=== PATIENT | female | born 1940 | race Caucasian/White ===

== ENCOUNTER 2018-04-08 07:29 | Day surgery (SDC) | payer MEDICARE, OTHER, SELFPAY ==
--- NOTE | 2018-04-08 | DI.MG.S_ITS ---
SPECIMEN: 04/08/2018 CLINICAL: Breast specimen right. Correlation is made to exams dated: 04/08/2018 mammogram, 02/24/2018 mammogram, and 02/05/2018 mammogram - [facility]. IMPRESSION: SPECIMEN Targeted mass is within the specimen radiograph. This exam was interpreted at Station ID: [id number]. Elliott Dwyer M.D. cj/:04/08/2018 17:00:50 copy to: CECILE VACA
--- NOTE | 2018-04-08 | PATH_ITS ---
[facility] Accession Number: [id number] . 01 Material submitted: . PART A: RIGHT BREAST TISSUE PART B: RIGHT BREAST LATERAL WALL . 02 Diagnosis: A. Right Breast Tissue, Excision: Complex sclerosing lesion, 9 mm, free of all margins by at least 5 mm; pending consultation at the [facility]. Incidental intraductal papilloma, within 3 mm of inferior margin. . B. Right Breast, Lateral Wall, Excision: Breast parenchyma with no diagnostic abnormality. Negative for in situ or invasive carcinoma. BFI/04/14/2018 . 02 Comment: The dominant lesion consists of irregualr glands and nests of epithelioid cells within a sclerotic stroma spanning 9 mm on glass slides. Histochemical stains for myoepithelial cells show at least partial retention of the myoepithelial cell layer, arguing against an invasive carcinoma. This case will be forwarded to the [facility] for their expert opinion, and their findings issued in an addendum. . 02 Electronically signed: . Wagner Cervantes MD, PhD, Pathologist NPI- [id number] . 01 Gross description: . (A) Received in formalin, labeled RT breast, long superior, short medial, is a piece of breast tissue (4.3 cm AP, 1.8 cm SI, 5.7 cm ML) with overlying skin (1.5 cm SI, 3.8 cm ML) oriented with two black sutures (long-superior, short-medial). A localization wire enters the central inferior aspect and ends in the center of the specimen. The specimen is serially sectioned ML into 20 slices with the medial and lateral resection margins as slices #1 and #20, respectively. The localization wire ends between slices #8 and #9. No biopsy marker is identified. The breast tissue is fatty and contains scattered whitaker-white firm nodules and irregularly firm areas (0.2 x 0.2 x 0.1 cm-0.8 x 0.4 x 0.4 cm) within slices #4-19 located 0.4 cm from the skin surface, 0.5 cm from the posterior, 0.5 cm from the superior, 0.1 cm from the inferior, 0.8 cm from the medial, and 0.3 cm from the lateral resection margins. Ink code: yellow- posterior; black-superior; orange-inferior; green-medial; blue-lateral. Section code: (A1) medial resection margin, perpendicularly sectioned; (A2) slice #2; (A3) slice #3; (A4) slice #4; (A5) slice #5; (A6-A7) slice #6, bisected and submitted AP; (A8-A9) slice #7, bisected and submitted AP; (A10-A11) slice #8, tissue involving the end of the localization wire, bisected and submitted AP; (A12-A13) slice #9, tissue involving the end of the localization wire, bisected and submitted AP; (A14-A15) slice #10, bisected and submitted AP; (A16-A17) slice #11, bisected and submitted AP; (A18-A19) slice #12, bisected and submitted AP; (A20-A21) slice #13, bisected and submitted AP; (A22-A23) slice #14, bisected and submitted AP; (A24-A15) slice #15, bisected and submitted AP; (A26-A27) slice #16, bisected and submitted AP; (A28-A29) slice #17, bisected and submitted AP; (A30) slice #18; (A31) slice #19; (A32) lateral resection margin, perpendicularly sectioned. Specimen entirely submitted. (B) Received in formalin, labeled lateral wall, right breast, is an unoriented piece of whitaker-white rubbery fibrous tissue (1.2 x 0.7 x 0.4 cm). The specimen is inked black, serially sectioned, and entirely submitted in cassette B1. . Note: Approximate total fixation time in formalin for both specimens-66 hours and 30 minutes calculated using a collection date of 04/08/2018 with no collection time given. ([id number]) . /[facility] . 02 Microscopic: . A. The main lesion consists of a focus of irregular glandular structures and nests of epithelioid cells with a squamoid appearance in a background of sclerotic stroma. To further evaluate the glands of interest, stains to evaluate for myoepithelial cells are performed. A p63 stain highlights the intact myoepithelial cell. A myosin stain highlights a predominately intact myoepithelial cell population. Control stains show appropriate reactivity. . * This test was developed and its performance characteristics determined by [employer]. It has not been cleared or approved by the U.S. Food and Drug Administration. The FDA has determined that such clearance or approval is not necessary. This test is used for clinical purposes. It should not be regarded as investigational or for research. . 02 Pathologist provided ICD-10: N63.10 . 02 CPT . 666050, 602428, Y81737, V20381 Performed at: [facility] [address] [facility], [place], [place] [id number] MD Byron Knapp MD Phone: [phone] Performed at: 02 [facility] [place] [address] [place], [place] [id number] MD Jimenez Garcia MD Phone: [phone]
--- NOTE | 2018-04-08 | DI.MG.S_ITS ---
UNILATERAL RIGHT DIGITAL DIAGNOSTIC MAMMOGRAM: 04/08/2018 CLINICAL: Right breast mass. Comparison is made to exams dated: 04/08/2018 localization, 02/24/2018 mammogram, and 02/05/2018 mammogram - [facility]. The tissue of the right breast is heterogeneously dense. This may lower the sensitivity of mammography. Wire localization using a 5 cm Kopans wire of the right breast subareolar mass which is at the thickened portion of the wire. IMPRESSION: Successful localization of a right breast subareolar mass. This exam was interpreted at Station ID: [id number]. NOTE: For mammograms, a report in lay terms will be sent to the patient. Approximately 15% of breast malignancies will not be visualized mammographically. In the management of a palpable breast mass, a negative mammogram must not discourage biopsy of a clinically suspicious lesion. Electronically Signed By: Elliott Dwyer M.D. cj/:04/08/2018 17:00:20 copy to: CECILE DEL VALLE BI-RADS Category n/a
--- NOTE | 2018-04-08 | DI.US.S_ITS ---
ULTRASOUND GUIDED WIRE LOCALIZATION RIGHT BREAST: 04/08/2018 CLINICAL: Pre-op wire localization. Correlation is made to exams dated: 02/24/2018 ultrasound, 02/05/2018 mammogram, 01/08/2017 mammogram, 07/15/2016 ultrasound, 07/15/2016 mammogram, and 12/27/2015 mammogram - [facility]. A wire localization using ultrasound guidance was performed for the mass located in the right breast central to the nipple in the retroareolar region. The skin was prepped in the usual manner. Local anesthetic was administered to the access site. A wire was inserted into the targeted area under ultrasound guidance. IMPRESSION: WIRE LOCALIZATION Wire localization for the mass in the right breast central to the nipple in the retroareolar region was successful with no apparent post procedure complications. This exam was interpreted at Station ID: [id number]. Elliott desai/francisco:04/09/2018 12:43:12 copy to: CECILE VACA
[2018-04-08] MEDS: LACTATED RINGERS 1,000 ML 42 ML IV (10:15)
[2018-04-08] MEDS: INSULIN REGULAR 100 UNIT/ML 3 ML VIAL 6 UNIT SUBCUT (10:16)
[2018-04-08 10:20] VITALS: BMI 42.1
[2018-04-08 10:27] VITALS: BP 156/75; PULSE 80; RESP 15; TEMP 36.1; O2SAT 92
[2018-04-08] MEDS: FAMOTIDINE 20 MG/50 ML PIGGYBACK 200 MG IV (11:21)
--- NOTE | 2018-04-08 11:29 | PM.PREOP ---
Pre-operative Note Interval Note Pre-op Check: History & Physical Reviewed by Physician and Exam Performed H&P completed within 30 days and has changed as indicated here:: The patient's sugar was 190. She was given 6 units of insulin subcu about a half an hour ago and the repeat shows a glucose of 171. Because she has downwardly trending and has not yet peaked on the effect of her initial insulin shot I will not repeat this at that this time we will proceed with the operation. We will check her intraoperatively if the operation goes beyond an hour
[2018-04-08] MEDS: CEFAZOLIN 2 GM/100 ML FROZ.PIGGY IV (11:40)
[2018-04-08] MEDS: BUPIVACAINE 0.5% (PF) 30 ML VIAL INJ (12:20)
[2018-04-08 12:45] VITALS: BP 156/73; PULSE 68; RESP 14; TEMP 36.8; O2SAT 94
[2018-04-08 12:50] VITALS: BP 159/74; PULSE 71; RESP 14; O2SAT 94
[2018-04-08 12:55] VITALS: BP 152/68; PULSE 69; RESP 14; O2SAT 93
--- NOTE | 2018-04-08 12:59 | PM.OP.1 ---
Operative Date/Time/Diagnoses - Date of procedure: 04/08/18 Time of procedure: 12:59 Pre-op diagnosis: Tender right breast mass behind and probably involving the nipple Post-op diagnosis: same Procedure & Clinicians Procedure: Needle localization with lumpectomy Same procedure as scheduled: Yes Indications: Breast mass. The patient declined a minimally invasive biopsy. She simply wanted the mass removed. Surgeon: Alberto Ruffin Click Yes if Unassisted: Yes Anesthesia Type: General Operative Notes Findings: Mass within the specimen based on specimen mammogram Closure Type: primary Specimen(s): other (Mass) Implants & Drains: None Estimated Blood Loss (mL): 15 Blood products transfused: none Procedure in detail: Patient was placed supine on the operating table and underwent general LMA anesthesia. She was prepped and draped in the usual fashion. Great care had been taken not to move the wire used for localization. The nipple was retracted and appeared to be involved with this lesion. Therefore I made elliptical incision across the Michael to include the nipple with the specimen. Using principally cautery dissection the mass was dissected from surrounding structures removed. It was submitted for a mammographic evaluation and contained the needle and the mass. There was 1 small area of the lateral wall that was a little different than the remainder and I biopsied this and placed in a separate container. It may just be breast tissue that was little more prominent than elsewhere. I irrigated out the wound and obtained meticulous hemostasis. Local anesthetic was infiltrated and the space closed with interrupted 3 0 Polysorb. The skin was closed running 4-0 Polysorb subcuticular stitch and Steri-Strips. Dressing was applied the patient was awakened extubated taken to recovery room good condition. Complications: none Condition: stable Disposition: PACU Plan for aftercare: Follow-up in office about 7-10 days
[2018-04-08 13:11] VITALS: BP 157/63; PULSE 73; RESP 16; O2SAT 94
--- NOTE | 2018-04-08 13:39 | SUR.PHASEII ---
assumed care from og gutiérrez. pt just medicated for pain, dressing c/d/i. ice pack in use, at bedside- d/c instructions discussed with both by og, both voiced an understanding of what was discussed.
[2018-04-08 13:43] VITALS: BP 139/64; PULSE 68; RESP 16; TEMP 36.1; O2SAT 95
--- NOTE | 2018-04-08 13:51 | SUR.PHASEII ---
pt ready to go, assisted to dress by .
== END 2018-04-08 13:50 | disposition home or self-care (01) ==
PROVIDERS: PCP Family Medicine; Visit Provider Specialist
PROC: (CPT 19301; principal; 2018-04-08 11:15)
DX: N63.10 Unspecified lump in the right breast, unspecified quadrant (principal); C50.912 Malignant neoplasm of unspecified site of left female breast; E66.9 Obesity, unspecified; G47.33 Obstructive sleep apnea (adult) (pediatric); E11.9 Type 2 diabetes mellitus without complications; Z79.4 Long term (current) use of insulin; K21.9 Gastro-esophageal reflux disease without esophagitis; I10 Essential (primary) hypertension; D64.9 Anemia, unspecified
CPT/HCPCS: 19301; 19285; 76098; 77065; J0690; J2405; J2704; J3010

== ENCOUNTER → 2018-08-27 09:42 | Outpatient (CLI) | payer MEDICARE, OTHER, SELFPAY | PROVIDERS: PCP Family Medicine; Visit Provider Family Medicine | DX: Z78.0 Asymptomatic menopausal state (principal); E11.9 Type 2 diabetes mellitus without complications; Z85.3 Personal history of malignant neoplasm of breast; Z87.891 Personal history of nicotine dependence | CPT/HCPCS: 77080 ==

== ENCOUNTER → 2019-01-17 12:19 | Outpatient (CLI) | payer MEDICARE, OTHER, SELFPAY ==
--- NOTE | 2019-01-17 | DI.RAD.S_ITS ---
PROCEDURE: XR LUMBAR SPINE 2-3V INDICATIONS: BACK PAIN TECHNIQUE: 3 views of the lumbar spine were acquired. COMPARISON: [facility], CT, ABDOMEN WITH CONTRAST, 03/20/2015, 9:19. FINDINGS: Bones: 5 [id number] vertebrae are present. Mild to moderate levoscoliosis. There is grade 1 anterolisthesis of L5 on S1. No vertebral body compression fractures. No suspicious bony lesions. There is discectomy and posterior spinal fusion at L4-L5. Degenerative disc disease is present, severe at T12-L1, moderate at L2-L3 and mild at other levels. Soft tissues: Overlying bowel gas pattern is normal. No suspicious soft tissue calcifications. IMPRESSION: 1. Mild to moderate levoscoliosis. 2. Severe degenerative disc disease at T12-L1, and moderate degenerative disc disease at L2-L3. Dictated by: Damon Dalton M.D. on 01/17/2019 at 17:12 Approved by: Damon Dalton M.D. on 01/17/2019 at 17:16
== END ==
PROVIDERS: PCP Family Medicine; Visit Provider Family Medicine
DX: M54.9 Dorsalgia, unspecified (principal); M51.35 Other intervertebral disc degeneration, thoracolumbar region; M51.36 Other intervertebral disc degeneration, lumbar region; M41.86 Other forms of scoliosis, lumbar region
CPT/HCPCS: 72100

== ENCOUNTER → 2019-02-17 12:50 | Outpatient (CLI) | payer MEDICARE, OTHER, SELFPAY ==
--- NOTE | 2019-02-17 | DI.MG.S_ITS ---
BILATERAL DIGITAL SCREENING MAMMOGRAM 3D/2D WITH CAD POST LUMPECTOMY: 02/17/2019 CLINICAL: Routine screening. Bilateral breast cancer. Comparison is made to exams dated: 02/24/2018 mammogram, 02/05/2018 mammogram, 01/08/2017 mammogram, 12/27/2015 mammogram, 01/23/2015 mammogram, and 11/11/2013 mammogram - [facility]. The tissue of both breasts is heterogeneously dense. This may lower the sensitivity of mammography. Current study was also evaluated with a Computer Aided Detection (CAD) system. Linear scar markers overlie the breasts bilaterally. There are benign post operative findings in both breasts. There also are benign vascular calcifications in both breasts. There is a mole marker on the left breast. No significant masses, calcifications, or other findings are seen in either breast. There has been no significant interval change. IMPRESSION: There is no mammographic evidence of malignancy. A 1 year screening mammogram is recommended. This exam was interpreted at Station ID: [id number]. NOTE: For mammograms, a report in lay terms will be sent to the patient. Approximately 15% of breast malignancies will not be visualized mammographically. In the management of a palpable breast mass, a negative mammogram must not discourage biopsy of a clinically suspicious lesion. Electronically Signed By: Samy Cruz M.D. ecl/:02/17/2019 20:33:46 copy to: RANDY PRESTON copy to: Alberto Ruffin copy to: Truman Batista letter sent: Normal Exam ACR BI-RADS Category 2: Benign Finding(s) 3342F
--- NOTE | 2019-02-17 14:39 | DI.MRI.S_ITS ---
PROCEDURE: MR LUMBAR SPINE WO CON INDICATIONS: pain lower back TECHNIQUE: Noncontrast sagittal T1 spin echo and T2 fast echo, sagittal STIR, axial T1 and T2 fast spin echo through the lumbar spine. In cases with scoliosis, additional coronal T2 fast spin echo may be performed. COMPARISON: [facility], CT, ABDOMEN WITH CONTRAST, 03/20/2015, 9:19. [facility], CT, CHEST/ABDOMEN WITH CONTRAST, 08/29/2014, 9:07. [facility], CR, XR LUMBAR SPINE 2-3V, 01/17/2019, 12:30. FINDINGS: Image quality: This examination is limited by involuntary motion artifact. Alignment and Curvature: There is accentuated lumbar lordosis is seen. There is mild grade 1 retrolisthesis at T12-L1. Minimal retrolisthesis is seen at L1-L2, L2-L3, and a flow. Mild grade 1 anterolisthesis is seen at L5-S1. No definite associated pars ducts are seen. Bone Marrow: Marrow is of normal overall signal. No acute vertebral body compression fractures. Spinal Cord: Conus medullaris terminates at the L1 level. Visualized cord demonstrates normal signal and size. Paraspinous Soft Tissues: No paravertebral masses. There is a left renal cyst seen inferiorly, which measures at least 6.5 cm. T12-L1: Moderate to severe loss of disc height and disc signal are seen. Endplate irregularity is seen at this level. Bridging anterior osteophytes are seen. Moderate disc bulge is seen, which is eccentric to the left. There is moderate bilateral neural foraminal narrowing seen, left worse than right. No significant central canal narrowing is seen. L1-L2: The disc height is well-preserved. Loss of disc signal is seen at this level. Mild generalized disc bulge is seen. Bmzh-ok-wstciwuz facet hypertrophy is seen. No significant neural foraminal or central canal narrowing can be seen. L2-L3: The disc height is well-preserved. Loss of disc signal is seen at this level. Moderate generalized disc bulge is seen. Moderate facet hypertrophy is seen, left worse than right. There is moderate hypertrophy of the ligamentum flavum. Moderate bilateral neural foraminal narrowing is seen at this level. At least moderate central canal narrowing is seen, as on series 5 image 18. L3-L4: The disc height is well-preserved. Loss of disc signal is seen at this level. Moderate to prominent disc bulge is seen. At least moderate facet hypertrophy is seen. There is associated moderate hypertrophy of the ligamentum flavum. Moderate to severe bilateral neural foraminal narrowing is seen, right worse than left. There is a degree of compression seen upon the exiting nerve roots. Moderate to severe central canal narrowing is seen at this level. L4-L5: Postoperative changes are seen, with bilateral pedicle screws. Vertical fixation rods are seen. There is a disc spacer seen. There is associated susceptibility artifact. There has been removal of portions of the posterior elements. Mild generalized disc bulge is seen. Moderate facet joint hypertrophy is seen. There is moderate right-sided and mild left-sided neural foraminal narrowing seen. The central canal is widely patent. L5-S1: Grade 1 anterolisthesis is seen at this level. The disc height is well-preserved. Loss of disc signal is seen at this level. Moderate generalized disc bulge is seen. At least moderate facet hypertrophy is seen. There is moderate right-sided and mild left-sided neural foraminal narrowing seen. Moderate central canal narrowing is seen. IMPRESSION: At L3-L4, there is moderate to severe central canal narrowing and moderate to severe bilateral neural foraminal narrowing. There is associated nerve root impingement seen upon the exiting L3 nerve roots. Unremarkable postoperative change at L4-L5. Grade 1 anterolisthesis is seen at L5-S1. Dictated by: Tan Junior M.D. on 02/17/2019 at 14:52 Approved by: Tan Junior M.D. on 02/17/2019 at 14:59
== END ==
PROVIDERS: PCP Family Medicine; Visit Provider Physical Medicine & Rehabilitation
DX: Z12.31 Encounter for screening mammogram for malignant neoplasm of breast (principal); Z85.3 Personal history of malignant neoplasm of breast; M54.5 Low back pain; M43.17 Spondylolisthesis, lumbosacral region; M48.061 Spinal stenosis, lumbar region without neurogenic claudication; M48.07 Spinal stenosis, lumbosacral region; Z98.1 Arthrodesis status
CPT/HCPCS: 72148; 77063; 77067

== ENCOUNTER → 2019-03-25 11:14 | Outpatient (CLI) | payer MEDICARE, OTHER, SELFPAY ==
--- NOTE | 2019-03-25 11:16 | DI.RAD.S_ITS ---
PROCEDURE: FL BARIUM SWALLOW INDICATIONS: Dysphagia upper esophagus. Worsening reflux. Hoarseness COMPARISON: None. FINDINGS: Function: There is normal esophageal peristalsis. There was minimal spontaneous and elicited gastroesophageal reflux. Morphology: Air-contrast images demonstrate normal mucosal morphology. Single contrast views show no esophageal strictures, extrinsic mass effects, or diverticula. Limited images of the stomach demonstrate normal appearance. IMPRESSION: The degree of reflux visualized is mild, but the symptomatology reported by the patient indicates likelihood of significant reflux occurring at other times of the day/evening. Advanced detection methodology for severity of reflux likely is warranted in this patient. Dictated by: Avila Roman M.D. on 03/25/2019 at 12:34 Approved by: Avila Roman M.D. on 03/25/2019 at 12:35
== END ==
PROVIDERS: PCP Family Medicine; Visit Provider Specialist
DX: R13.10 Dysphagia, unspecified (principal); K21.9 Gastro-esophageal reflux disease without esophagitis; R49.0 Dysphonia
CPT/HCPCS: 74220

== ENCOUNTER 2019-03-29 13:02 | Outpatient (CLI) | payer MEDICARE, OTHER, SELFPAY ==
--- NOTE | 2019-03-29 13:07 | DI.RAD.S_ITS ---
PROCEDURE: PAIN L INTERLAMINAR/CAUDAL INJ INDICATIONS: INTERVERTEBRAL DISC DEGENERATION FINDINGS: Fluoroscopic spot filming was performed to verify placement of spinal needles at the L3-L4, as labeled on the films. Appropriate location(s) of the needle tip(s) was confirmed by injection of iodinated contrast. IMPRESSION: Fluoroscopy for pain management. Dictated by: Damon Dalton M.D. on 03/29/2019 at 15:12 Approved by: Damon Dalton M.D. on 03/29/2019 at 15:16
[2019-03-29 13:15] VITALS: BP 126/67; PULSE 114; RESP 16; TEMP 36.3; O2SAT 96
[2019-03-29] MEDS: MIDAZOLAM 5 MG/5 ML VIAL IV (13:54)
--- NOTE | 2019-03-29 14:15 | P.PCN_ITS ---
Procedures Date/Time Date of procedure: 03/29/19 Time of procedure: 14:14 General Procedure description: POST OP DIAGNOSIS 1. HNP WITH RADICULAR FEATURES, 2. MULTILEVEL CENTRAL STENOSIS, PROCEDURES 1. FLUORSCOPICALLY GUIDED CONTRAST CONTROLLED INTERLAMINAR EPIDURAL STEROID INJECTION - L3/4 PHYSICIAN: Layton Castro, DO INDICATIONS Wendy is referred by Dr. Batista for treatment of Bilateral Foraminal Stenosis L>R LE symptoms. FINDINGS Multilevel Central Spinal Stenosis with Nerve Root Compression DESCRIPTION OF PROCEDURE Fluoroscopically guided, contrast-controlled L3/4 translaminar epidural steroid injection. Following denial of allergy and review of potential side effects and complications, including, but not necessarily limited to, infection, allergic reaction, local tissue breakdown, temporary as well as permanent nerve injury, paralysis, stroke and possible , the patient indicated that the patient understood and agreed to proceed. An informed consent document was signed by the patient, witnessed by a nurse, and placed in the patient's chart. Additionally, other treatment options including modalities, medications, and physical therapy were reviewed with the patient. After review of previous anaesthesic history and IV conscious sedation the patient was deemed safe to proceed with todays procedure with IV conscious sedation as ASA class II designation. Safety time-out was performed to confirm patient ID, procedure to be performed and site of procedure. IV sedation was accomplished with a combination of 3mg of Versed was administered by the RN after DO order, titrated to patient comfort during the course of the procedure while the patient remained responsive to all verbal commands. In the prone position, following sterile prep and drape of the lumbar region, the L3/4 translaminar space was identified fluoroscopically. The skin was anesthetized via a 25-gauge, 1.5-inch needle with 1% lidocaine solution. At this point, a 22-gauge short bevel spinal needle was atraumatically introduced and advanced under fluoroscopic guidance into the region of the L3/4 translaminar space. Depth was confirmed on lateral view. Radiological data, including multiple fluoroscopic views of the lumbar spine, reveal a spinal needle at the L3/4 translaminar space. Lateral views then show placement of the needle in the epidural space. Subsequent views show contrast material flowing superiorly and inferiorly in the epidural space. No vascular or intrathecal uptake is observed. At this point, using loss of resistance technique with saline and air, the epidural space was entered. This was confirmed following negative aspiration with injection of approximately 1.5 cc of Isovue 200, showing excellent epidural flow without vascular or intrathecal uptake. At this point, 1 cc of 1% lidocaine solution combined with 3cc or 20mg of dexamethasone and 6mg of betamethasone was injected without incident. The patient tolerated the procedure well without signs or symptoms of complications prior to transfer to the recovery area continued monitoring without incident. The patient was then transferred to the recovery area where they were observed for an appropriate period of time after the injection. The patient reported a VAS score of 6 prior to the procedure and a post- procedure VAS of 0. Total Fluoroscopy Time: 11.8 seconds Total Conscious Sedation Time: 24min POST OP INSTRUCTIONS The patient was provided a Pain Log to continue to record their response to the target-specific procedure prior to follow-up visit with their referring physician. Additionally, specific post-injection care instructions and a contact number to our office were provided if concerns arise regarding possible complications associated with the procedure are suspected. Layton Castro DO Complications: none
[2019-03-29 14:21] VITALS: BP 140/57; PULSE 96; RESP 18; O2SAT 94
[2019-03-29] MEDS: BUPIVACAINE 0.5% (PF) VIAL 30 ML INJ (14:21)
[2019-03-29] MEDS: IOPAMIDOL 15 ML VIAL 3 ML INJ (14:22)
[2019-03-29] MEDS: BETAMETHASONE 30 MG/5 ML MDV 12 MG INJ (14:22)
--- NOTE | 2019-03-29 14:22 | PC.NURSE ---
ACCEPTED CARE OF PT IN POST PROC AREA IN STABLE CONDITION
[2019-03-29 14:26] VITALS: BP 118/53; PULSE 92; RESP 18; O2SAT 95
== END 2019-03-29 14:39 | disposition home or self-care (01) ==
LOC: RAD 13:06
PROVIDERS: PCP Family Medicine; Visit Provider Physical Medicine & Rehabilitation
DX: M51.16 Intervertebral disc disorders with radiculopathy, lumbar region (principal); M48.062 Spinal stenosis, lumbar region with neurogenic claudication; Z98.1 Arthrodesis status
CPT/HCPCS: 62323; 99152; J0702; J2250; J3010

== ENCOUNTER 2019-04-19 06:41 | Day surgery (SDC) | payer MEDICARE, OTHER, SELFPAY ==
[2019-04-19] VITALS (7 sets, daily range): BP systolic 119–157; BP diastolic 48–82; PULSE 73–86; RESP 14–73; TEMP 36.4–36.5; O2SAT 93–97; BMI 45.4
--- NOTE | 2019-04-19 | PATH_ITS ---
[facility] Accession Number: [id number] . 01 Material submitted: . gastrointestinal site - GASTRIC ANTRUM BIOPSY . 02 Diagnosis: Stomach, Antrum, Biopsy: Gastric antral mucosa with features of reactive gastropathy. No evidence of Helicobacter organisms on H/E stain. Negative for intestinal metaplasia, dysplasia or malignancy. [facility]/04/20/2019 . 02 Electronically signed: . Wagner Cervantes MD, PhD, Pathologist NPI- [id number] . 01 Gross description: . GASTRIC ANTRUM BIOPSY: Received in formalin are 3 fragment(s) of lin, soft tissue measuring 0.1 x 0.1 x 0.1 cm to 0.3 x 0.2 x 0.2 cm which is entirely submitted and submitted entirely in 1 cassette(s) /[facility] /[facility] . 02 Pathologist provided ICD-10: R10.13, K21.9 . 02 CPT . 620729 Performed at: 01 [facility] [address], [place], [place] [id number] MD Byron Knapp MD Phone: [phone] Performed at: 02 [facility] [address] [place], [place] [id number] MD Georgina Villalpando MD Phone: [phone]
[2019-04-19] MEDS: SODIUM CHLORIDE 0.9% 1,000 ML 150 ML IV (07:58)
--- NOTE | 2019-04-19 07:58 | PM.PREOP ---
Pre-operative Note Interval Note History & Physical reviewed/Exam performed by Physician: Yes Changes to H&P: Yes H&P completed within 30 days and has changed as indicated here:: The patient had a barium swallow that was normal except for some very slight reflux ASA Class (for procedural sedation): III
[2019-04-19] MEDS: TETRACAINE/BENZOCAINE/BUTAMBEN (CETACAINE) BOTTLE 1 SPRAY TOP (08:11)
[2019-04-19] MEDS: LIDOCAINE 4% SOLN 50 ML 20 ML TOP (08:12)
[2019-04-19] MEDS: fentaNYL 250 MCG/5 ML INJ IV (08:18)
[2019-04-19] MEDS: MIDAZOLAM 5 MG/5 ML VIAL IV (08:19)
--- NOTE | 2019-04-19 08:27 | PM.OP.ENDO ---
Operative Date/Time/Diagnoses Date of procedure: 04/19/19 Time of procedure: 08:27 Pre-op diagnosis: Persistent cough concern over reflux as the source of that cough Post-op diagnosis: other (No evidence of significant reflux. Antritis. Biopsies taken of the antrum.) Procedure & Clinicians Study performed: EGD with cold biopsy Same procedure as scheduled: Yes Indications: Patient with persistent cough thought possibly secondary to silent reflux Surgeon: Alberto Ruffin Procedure Notes SCOAP/Timeout: Performed Procedure in detail: The patient had topical anesthetic applied to oropharynx. She was placed in left lateral decubitus position and underwent IV sedation directed by the surgeon consisting of fentanyl and Versed. A bite block was inserted and the scope was advanced through. There was no evidence of any inflammation around the epiglottis or area above the vocal cords. The cords were normal in appearance. There was no inflammation entering the esophagus. The esophagus was unremarkable. GE junction was noted at 40 cm from the incisors. There was no evidence of Yu's esophagus and there was a sharp demarcation between gastric and esophageal mucosa as 1 would normally expect. The stomach insufflated well. There were no lesions seen in the body or at the incisura. The antrum was noted to be significantly inflamed but no ulcers were seen. The pyloric channel was narrowed. The duodenum was unremarkable to the 4th part. The scope was brought back into the stomach and retroflexed. The proximal stomach normal in appearance. There was no evidence of a hiatal hernia.. The scope was straightened. Biopsies were taken of the gastric antrum. The scope was then brought out through the esophagus again. No lesions were seen. There was no inflammation at the GE junction. The scope was removed and the patient tolerated the procedure well. Scope withdrawal time: Not applicable Sedation minutes: 10 Findings: other findings (Antritis) Specimen(s): other (Gastric antrum) Complications: none Recommendations: Continue medication(s) (Omeprazole) Plan for aftercare: Will follow up with biopsy results. Disposition: PACU
--- NOTE | 2019-04-19 09:17 | SUR.PHASEII ---
PACU transfer note to [facility]: VSS, O2 sat WNL RA. No complaints of pain. Tolerating PO without any choking or nausea. Stable for transfer to [facility] via stretcher to [place] #3. at bedside.
== END 2019-04-19 09:29 | disposition home or self-care (01) ==
PROVIDERS: PCP Family Medicine; Visit Provider Specialist
PROC: 0DJ08ZZ Inspection of Upper Intestinal Tract, Via Natural or Artificial Opening Endoscopic (ICD-10-PCS; CPT 43235; principal; 2019-04-19 07:45)
DX: K29.60 Other gastritis without bleeding (principal); E11.9 Type 2 diabetes mellitus without complications; Z79.4 Long term (current) use of insulin; K21.9 Gastro-esophageal reflux disease without esophagitis
CPT/HCPCS: 43239; 88305; 99152; J2250; J3010

== ENCOUNTER → 2020-05-01 10:03 | Outpatient (CLI) | payer MEDICARE, OTHER, SELFPAY ==
--- NOTE | 2020-05-01 | DI.MG.S_ITS ---
BILATERAL DIGITAL SCREENING MAMMOGRAM 3D/2D WITH CAD POST LUMPECTOMY: 05/01/2020 CLINICAL: Routine screening. Personal history of bilateral breast cancer. Comparison is made to exams dated: 02/17/2019 mammogram, 02/05/2018 mammogram, and 01/08/2017 mammogram - [facility]. The tissue of both breasts is heterogeneously dense. This may lower the sensitivity of mammography. Current study was also evaluated with a Computer Aided Detection (CAD) system. There are benign vascular calcifications in both breasts. There also are benign post operative findings in both breasts. There is a mole marker on the left breast. No significant masses, calcifications, or other findings are seen in either breast. There has been no significant interval change. IMPRESSION: There is no mammographic evidence of malignancy. A 1 year screening mammogram is recommended. This exam was interpreted at Station ID: [id number]. NOTE: For mammograms, a report in lay terms will be sent to the patient. Approximately 15% of breast malignancies will not be visualized mammographically. In the management of a palpable breast mass, a negative mammogram must not discourage biopsy of a clinically suspicious lesion. Electronically Signed By: Larisas low/francisco:05/01/2020 11:00:37 copy to: DIEGO WALTER letter sent: Normal Exam ACR BI-RADS Category 2: Benign Finding(s) [id number]
== END ==
PROVIDERS: PCP Family Medicine; Referring Provider Family Medicine; Visit Provider Family Medicine
DX: Z12.31 Encounter for screening mammogram for malignant neoplasm of breast (principal); Z85.3 Personal history of malignant neoplasm of breast
CPT/HCPCS: 77063; 77067

== ENCOUNTER → 2020-06-29 08:59 | Outpatient (CLI) | payer MEDICARE, OTHER, SELFPAY ==
--- NOTE | 2020-06-29 09:01 | DI.RAD.S_ITS ---
PROCEDURE: XR LUMBAR SPINE MIN 4V INDICATIONS: LBP TECHNIQUE: 5 views of the lumbar spine were acquired. COMPARISON: [facility], RG, XR L-SPINE 2-3V, 02/03/2019, 13:16. [facility], CT, ABDOMEN WITH CONTRAST, 03/20/2015, 9:19 [facility], CR, XR LUMBAR SPINE 2-3V, 01/17/2019, 12:30. FINDINGS: Bones: 5 nonrib-bearing vertebrae are present. Mild S-shaped rotatory thoracolumbar curvature. Bilateral L4-L5 posterior lateral noemí and pedicle screw fixation with no evidence of hardware failure or loosening. Chronic grade 1 anterolisthesis of L5 on S1. Unchanged alignment. Multilevel degenerative disc disease and facet arthropathy. No suspicious bony lesions. Soft tissues: Overlying bowel gas pattern is normal. No suspicious soft tissue calcifications. Unchanged 2 cm splenic artery aneurysm, stable in size since 2014. . IMPRESSION: 1. L4-L5 fusion hardware intact. 2. Stable 2 cm splenic artery aneurysm. 3. Multilevel degenerative disc disease and facet arthropathy. Dictated by: Anderson Dominguez M.D. on 06/29/2020 at 9:25 Approved by: Anderson Dominguez M.D. on 06/29/2020 at 9:30
== END ==
PROVIDERS: PCP Family Medicine; Referring Provider Family Medicine; Visit Provider Physical Medicine & Rehabilitation
DX: M54.5 Low back pain (principal); M47.817 Spondylosis without myelopathy or radiculopathy, lumbosacral region; M43.17 Spondylolisthesis, lumbosacral region; I72.8 Aneurysm of other specified arteries; Z98.1 Arthrodesis status
CPT/HCPCS: 72110

== ENCOUNTER → 2020-07-06 11:07 | Outpatient (CLI) | payer MEDICARE, OTHER, SELFPAY ==
--- NOTE | 2020-07-06 11:08 | DI.RAD.S_ITS ---
PROCEDURE: XR SHOULDER LT MIN 2V INDICATIONS: Left shoulder pain TECHNIQUE: 3 views of the shoulder were acquired. COMPARISON: [facility], , SHOULDER MINIMUM 2 VIEW LEFT, 08/01/2011, 13:22. FINDINGS: Bones: No fractures or dislocations. No suspicious bony lesions. Visualized ribs appear intact. 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 Superior subluxation of the humeral head near the undersurface of the acromion. Soft tissues: No suspicious soft tissue calcifications. IMPRESSION: Degenerative changes but no trauma found. There is relative superior subluxation of the humeral head against the undersurface of the acromion to a degree that the finding may indicate full-thickness retracted supraspinatus tendon tear. Dictated by: Avila Roman M.D. on 07/06/2020 at 12:50 Approved by: Avila Roman M.D. on 07/06/2020 at 12:52
--- NOTE | 2020-07-06 11:08 | DI.RAD.S_ITS ---
PROCEDURE: XR CERVICAL SPINE 4V OR 5V INDICATIONS: Neck pain status post laminectomy TECHNIQUE: 5 views of the cervical spine acquired. COMPARISON: None. FINDINGS: Bones: No fracture identified to the C6 level. There is extensive severe multilevel cervical spondylosis and facet arthropathy. Lower cervical laminectomies although the exact level is radiographically unclear probably C5-C7. Suboptimal oblique imaging however there is probably at least moderate to severe right C3-C4 and C4-C5 foraminal stenosis. There is also probably at least mild to moderate C4-C5 and C5-C6 bony foraminal stenosis. This would be better evaluated with cervical MRI as clinically necessary. Soft tissues: No prevertebral soft tissue swelling. IMPRESSION: Severe multilevel cervical spondylosis. Facet arthropathy Dictated by: Carlito Silva M.D. on 07/06/2020 at 13:38 Approved by: Carlito Silva M.D. on 07/06/2020 at 14:32
== END ==
PROVIDERS: PCP Family Medicine; Referring Provider Family Medicine; Visit Provider Physical Medicine & Rehabilitation
DX: M54.2 Cervicalgia (principal); M47.812 Spondylosis without myelopathy or radiculopathy, cervical region; M25.512 Pain in left shoulder; M19.012 Primary osteoarthritis, left shoulder; M96.1 Postlaminectomy syndrome, not elsewhere classified; Z98.890 Other specified postprocedural states
CPT/HCPCS: 72050; 73030

== ENCOUNTER → 2020-07-09 10:24 | Outpatient (CLI) | payer MEDICARE, OTHER, SELFPAY ==
[2020-07-11 17:20] LABS: COVID19 Sendout Not Detected (Not Detect)
== END ==
PROVIDERS: PCP Family Medicine; Visit Provider Nurse Practitioner
DX: Z11.59 Encounter for screening for other viral diseases (principal)
CPT/HCPCS: 87635

== ENCOUNTER 2020-07-12 14:10 | Outpatient (CLI) | payer MEDICARE, OTHER, SELFPAY ==
[2020-07-12] VITALS (8 sets, daily range): BP systolic 105–159; BP diastolic 56–95; PULSE 78–84; RESP 15–22; TEMP 36.6; O2SAT 92–100
--- NOTE | 2020-07-12 14:12 | DI.RAD.S_ITS ---
PROCEDURE: PAIN L INTERLAMINAR/CAUDAL INJ INDICATIONS: SPONDYLOSIS COMPARISON: [facility], XA, PAIN L INTERLAMINAR/CAUDAL INJ, 03/29/2019, 14:04. FINDINGS: Fluoroscopic spot filming was performed to verify placement of spinal needles at the L3-L4 level(s), as labeled on the films. Appropriate location(s) of the needle tip(s) was confirmed by injection of iodinated contrast. Dictated by: Carlito Silva M.D. on 07/12/2020 at 16:03 Approved by: Carlito Silva M.D. on 07/12/2020 at 16:03
[2020-07-12] MEDS: MIDAZOLAM 5 MG/5 ML VIAL IV (15:19)
[2020-07-12] MEDS: BETAMETHASONE 30 MG/5 ML MDV 6 MG INJ (15:22)
[2020-07-12] MEDS: DEXAMETHASONE 10 MG/ML VIAL 20 MG INJ (15:22)
[2020-07-12] MEDS: BUPIVACAINE 0.25% (PF) VIAL 2 ML INJ (15:22)
[2020-07-12] MEDS: IOPAMIDOL 15 ML VIAL 3 ML INJ (15:22)
--- NOTE | 2020-07-12 15:33 | P.PCN_ITS ---
Date/Time/Diagnoses Date of procedure: 07/12/20 Time of procedure: 15:33 Pre-procedure diagnosis: 1. HNP WITH RADICULAR FEATURES, 2. MULTILEVEL CENTRAL STENOSIS, Post-procedure diagnosis: same Procedure Notes Procedure: 1. FLUOROSCOPICALLY GUIDED CONTRAST CONTROLLED INTERLAMINAR EPIDURAL STEROID INJECTION - L3/4 Indications: Wendy is referred by Dr Batista for treatment of Bilateral Foraminal Stenosis L>R LE symptoms. Physician: Layton Castro Total Fluoroscopy time (seconds): 9 Total sedation minutes: 10 Complications: none Procedure in detail & Post-procedure care: FINDINGS Multilevel Central Spinal Stenosis with Nerve Root Compression DESCRIPTION OF PROCEDURE Fluoroscopically guided, contrast-controlled L3/4 translaminar epidural steroid injection. Following review of allergy and review of potential side effects and complications, including, but not necessarily limited to, infection, allergic reaction, local tissue breakdown, temporary as well as permanent nerve injury, paralysis, stroke and possible , the patient indicated that the patient understood and agreed to proceed. An informed consent document was signed by the patient, witnessed by a nurse, and placed in the patient's chart. Additionally, other treatment options including modalities, medications, and physical therapy were reviewed with the patient. After review of previous anaesthesic history and IV conscious sedation the patient was deemed safe to proceed with today?s procedure with IV conscious sedation as ASA class II designation. Safety time-out was performed to confirm patient ID, procedure to be performed and site of procedure. IV sedation was accomplished with a combination of 2mg of Versed was administered by the RN after DO order, titrated to patient comfort during the course of the procedure while the patient remained responsive to all verbal commands. In the prone position, following sterile prep and drape of the lumbar region, the L3/4 translaminar space was identified fluoroscopically. The skin was anesthetized via a 25-gauge, 1.5-inch needle with 1% lidocaine solution. At this point, a 22-gauge short bevel spinal needle was atraumatically introduced and advanced under fluoroscopic guidance into the region of the L3/4 translaminar space. Depth was confirmed on lateral view. Radiological data, including multiple fluoroscopic views of the lumbar spine, reveal a spinal needle at the L3/4 translaminar space. Lateral views then show placement of the needle in the epidural space. Subsequent views show contrast material flowing superiorly and inferiorly in the epidural space. No vascular or intrathecal uptake is observed. At this point, using loss of resistance technique with saline and air, the epidural space was entered. This was confirmed following negative aspiration with injection of approximately 1.5 cc of Isovue 200, showing excellent epidural flow without vascular or intrathecal uptake. At this point, 1cc of 1% lidocaine solution combined with 3cc or 20mg of dexamethasone and 6mg of betamethasone was injected without incident. The patient tolerated the procedure well without signs or symptoms of complications prior to transfer to the recovery area continued monitoring without incident. The patient was then transferred to the recovery area where they were observed for an appropriate period of time after the injection. The patient reported a VAS score of 6 prior to the procedure and a post- procedure VAS of 0. POST OP INSTRUCTIONS The patient was provided a Pain Log to continue to record their response to the target-specific procedure prior to follow-up visit with their referring physician. Additionally, specific post-injection care instructions and a contact number to our office were provided if concerns arise regarding possible complications associated with the procedure are suspected.
== END 2020-07-12 16:05 | disposition home or self-care (01) ==
LOC: RAD 14:11
PROVIDERS: PCP Family Medicine; Referring Provider Physical Medicine & Rehabilitation; Visit Provider Physical Medicine & Rehabilitation
DX: M51.16 Intervertebral disc disorders with radiculopathy, lumbar region (principal); M48.062 Spinal stenosis, lumbar region with neurogenic claudication
CPT/HCPCS: 62323; 99152; J0702; J1100; J2250; J3010

== ENCOUNTER → 2020-09-28 08:00 | Outpatient (CLI) | payer MEDICARE, OTHER, SELFPAY ==
--- NOTE | 2020-09-28 | DI.US.S_ITS ---
PROCEDURE: US RENAL COMPLETE INDICATIONS: DISORDER OF KIDNEY AND URETER TECHNIQUE: Real-time scanning was performed of the kidneys and bladder, with image documentation. COMPARISON: [facility], CT, ABDOMEN WITH CONTRAST, 03/20/2015, 9:19. [facility], US, RENAL COMPLETE, 05/10/2013, 11:26. FINDINGS: Kidneys: Kidneys are normal in size. Right kidney measures 9.6 cm long; left kidney measures 16.1 cm long (including the cyst). Right renal cortical thickness is 0.8 cm; left renal cortical thickness is 0.9 cm. Renal cortical echotexture is normal. No hydronephrosis. No suspicious solid mass lesions. Multiple echogenic foci are seen within the right kidney, with the largest seen superiorly measuring 7 mm. At the inferior pole of the left kidney, there is a simple appearing cyst seen, without nodularity or abnormal vascularity that measures 7.6 x 7 x 4.8 cm, which previously measured 5.9 x 5.7 x 5.2 cm. Smaller cysts are seen elsewhere. Bladder: Pre-void bladder volume is 403 mL. Post-void residual is 27 mL. Pre-void images demonstrate no intraluminal masses or stones. On pre-void images, neither of the ureteral jets are noted with color Doppler interrogation. (Of note, ureteral jets may not be detectable in up to 25% of cases due to insufficient differences in specific gravity between ureteral and bladder urine). Miscellaneous: No free pelvic fluid. IMPRESSION: Bilateral thinning of the renal cortex can be seen. No hydronephrosis. There is a 7.6 cm simple appearing cyst at the inferior pole of the left kidney, which has grown since the prior study. A 7 mm nonobstructing stone is seen at the superior pole of the right kidney. Mild postvoid residual, 27 cc. Dictated by: Tan Junior M.D. on 09/28/2020 at 13:12 Approved by: Tan Junior M.D. on 09/28/2020 at 13:15
--- NOTE | 2020-09-28 08:01 | DI.MRI.S_ITS ---
PROCEDURE: MR CERVICAL SPINE WO CON INDICATIONS: Cervical stenosis TECHNIQUE: Noncontrast sagittal T1 spin echo and T2 fast spin echo, sagittal STIR, foraminal oblique sagittal T2 fast spin echo, and axial gradient echo or T2 fast spin echo through the cervical spine. COMPARISON: None. FINDINGS: Image quality: Degraded by body habitus. Alignment and Curvature: There is loss of normal cervical lordosis. There is mild grade 1 retrolisthesis of C3 on C4. Mild grade 1 anterolisthesis of C6 on C7, T1 on T2, T2 on T3, and T3 on T4. Bone Marrow: Marrow demonstrates normal overall signal. Mild reactive signal within the endplates adjacent to the C2-C3, C3-C4, C4-C5, C5-C6, and C6-C7 intervertebral discs. Spinal Cord: Visualized spinal cord has normal size and signal. No cerebellar tonsillar herniation. Paraspinous Soft Tissues: No paravertebral masses. Prevertebral soft tissues are normal in thickness. C2-C3: Moderate disc height loss and desiccation. Mild diffuse disc bulge. Moderate facet and uncovertebral hypertrophy bilaterally. Mild canal stenosis. Moderate right and mild left foraminal stenosis. C3-C4: Moderate disc height loss and desiccation. Mild diffuse disc bulge with superimposed broad-based central protrusion. Moderate facet and uncovertebral hypertrophy bilaterally. Moderate canal stenosis. Moderate right and severe left foraminal stenosis. Left C4 nerve root compression. C4-C5: Severe disc height loss and desiccation. Moderate diffuse disc bulge. Moderate facet and uncovertebral hypertrophy bilaterally. Moderate canal stenosis. Severe bilateral foraminal stenosis with bilateral C5 nerve root compression. C5-C6: Severe disc height loss and desiccation. Mild diffuse disc bulge. Moderate facet and uncovertebral hypertrophy bilaterally. Mild canal stenosis. Moderate bilateral foraminal stenosis. C6-C7: Moderate disc height loss and desiccation. Mild diffuse disc bulge. Moderate facet and uncovertebral hypertrophy bilaterally. Mild canal stenosis. Moderate bilateral foraminal stenosis. C7-T1: Mild disc height loss and desiccation. Mild diffuse disc bulge. Mild facet and uncovertebral hypertrophy bilaterally. Mild canal stenosis. Mild bilateral foraminal stenosis. IMPRESSION: 1. Multilevel degenerative disc and facet disease, as well as uncovertebral hypertrophy. 2. Multilevel canal stenoses, worst at C3-C4, where there is moderate canal stenosis. 3. Multilevel foraminal stenoses, worst at C3-C4 and C4-C5 where there is associated intraforaminal nerve root compression. Recommend correlation with clinical symptoms to ascertain relevance of these findings. Dictated by: Jakob Genao M.D. on 09/28/2020 at 12:53 Approved by: Jakob Genao M.D. on 09/28/2020 at 12:57
== END ==
PROVIDERS: PCP Family Medicine; Referring Provider Family Medicine; Visit Provider Nurse Practitioner Family
DX: M96.1 Postlaminectomy syndrome, not elsewhere classified (principal); M48.02 Spinal stenosis, cervical region; M50.31 Other cervical disc degeneration, high cervical region; N28.9 Disorder of kidney and ureter, unspecified; N28.1 Cyst of kidney, acquired; N20.0 Calculus of kidney
CPT/HCPCS: 72141; 76770

== ENCOUNTER → 2020-10-08 10:06 | Outpatient (CLI) | payer MEDICARE, OTHER, SELFPAY ==
[2020-10-08 12:58] LABS: COVID19 -Nasal RAPID Negative (Negative)
== END ==
PROVIDERS: PCP Family Medicine; Visit Provider Physical Medicine & Rehabilitation
DX: Z01.812 Encounter for preprocedural laboratory examination (principal); Z20.828 Contact with and (suspected) exposure to other viral communicable diseases
CPT/HCPCS: 87635; C9803

== ENCOUNTER 2020-10-09 12:48 | Outpatient (CLI) | payer MEDICARE, OTHER, SELFPAY ==
--- NOTE | 2020-10-09 12:50 | DI.RAD.S_ITS ---
PROCEDURE: PAIN L INTERLAMINAR/CAUDAL INJ INDICATIONS: SPONDYLOSIS COMPARISON: [facility], XA, PAIN L INTERLAMINAR/CAUDAL INJ, 07/12/2020, 15:24. FINDINGS: Fluoroscopic spot filming was performed to verify placement of spinal needles at the L5-S1 level(s), as labeled on the films. Appropriate location(s) of the needle tip(s) was confirmed by injection of iodinated contrast. Dictated by: Carlito Silva M.D. on 10/09/2020 at 15:25 Approved by: Carlito Silva M.D. on 10/09/2020 at 15:25
[2020-10-09 13:05] VITALS: BP 141/57; PULSE 88; RESP 17; TEMP 36.6; O2SAT 99
[2020-10-09] MEDS: fentaNYL 100 MCG/2 ML INJ 50 MCG IV (13:52)
[2020-10-09] MEDS: MIDAZOLAM 5 MG/5 ML VIAL IV (13:55)
[2020-10-09] MEDS: DEXAMETHASONE 10 MG/ML VIAL 20 MG INJ (13:55)
[2020-10-09] MEDS: IOPAMIDOL 15 ML VIAL 3 ML INJ (13:55)
[2020-10-09] MEDS: BETAMETHASONE 30 MG/5 ML MDV 6 MG INJ (13:56)
[2020-10-09] MEDS: BUPIVACAINE 0.25% (PF) VIAL 2 ML INJ (13:57)
--- NOTE | 2020-10-09 14:02 | P.PCN_ITS ---
Date/Time/Diagnoses Date of procedure: 10/09/20 Time of procedure: 14:02 Pre-procedure diagnosis: 1. HNP WITH RADICULAR FEATURES, 2. MULTILEVEL CENTRAL STENOSIS, Post-procedure diagnosis: same Procedure Notes Procedure: 1. FLUOROSCOPICALLY GUIDED CONTRAST CONTROLLED INTERLAMINAR EPIDURAL STEROID INJECTION - L5/S1 Indications: Wendy is referred by AKSHAT Cervantes for treatment of Bilateral Foraminal Stenosis L>R LE symptoms. Physician: Layton Castro Total Fluoroscopy time (seconds): 5 Total sedation minutes: 8 Complications: none Procedure in detail & Post-procedure care: FINDINGS Multilevel Central Spinal Stenosis with Nerve Root Compression DESCRIPTION OF PROCEDURE Fluoroscopically guided, contrast-controlled L5/S1 translaminar epidural steroid injection. Following review of allergy and review of potential side effects and complications, including, but not necessarily limited to, infection, allergic reaction, local tissue breakdown, temporary as well as permanent nerve injury, paralysis, stroke and possible , the patient indicated that the patient understood and agreed to proceed. An informed consent document was signed by the patient, witnessed by a nurse, and placed in the patient's chart. Additionally, other treatment options including modalities, medications, and physical therapy were reviewed with the patient. After review of previous anaesthesic history and IV conscious sedation the patient was deemed safe to proceed with today?s procedure with IV conscious sedation as ASA class II designation. Safety time-out was performed to confirm p atient ID, procedure to be performed and site of procedure. IV sedation was accomplished with a combination of 1mg of Versed and 50mcg of Fentanyl administered by the RN after DO order, titrated to patient comfort during the course of the procedure while the patient remained responsive to all verbal commands. In the prone position, following sterile prep and drape of the lumbar region, the L5/S1 translaminar space was identified fluoroscopically. The skin was anesthetized via a 25-gauge, 1.5-inch needle with 1% lidocaine solution. At this point, a 22-gauge short bevel spinal needle was atraumatically introduced and advanced under fluoroscopic guidance into the region of the L5/S1 translaminar space. Depth was confirmed on lateral view. Radiological data, including multiple fluoroscopic views of the lumbar spine, reveal a spinal needle at the L5/S1 translaminar space. Lateral views then show placement of the needle in the epidural space. Subsequent views show contrast material flowing superiorly and inferiorly in the epidural space. No vascular or intrathecal uptake is observed. At this point, using loss of resistance technique with saline and air, the epidural space was entered. This was confirmed following negative aspiration with injection of approximately 1.5cc of Isovue 200, showing excellent epidural flow without vascular or intrathecal uptake. At this point, 1cc of 1% lidocaine solution combined with 3cc or 20mg of dexamethasone and 6mg of betamethasone was injected without incident. The patent tolerated the procedure without signs of symptoms of complications prior to transfer to the recovery area for further monitoring. The patient was then transferred to the recovery area where they were observed for an appropriate period of time after the injection. The patient reported a VAS score of 6 prior to the procedure and a post-procedure VAS of 0. POST OP INSTRUCTIONS The patient was provided a Pain Log to continue to record their response to the target-specific procedure prior to follow-up visit with their referring physician. Additionally, specific post-injection care instructions and a contact number to our office were provided if concerns arise regarding possible complications associated with the procedure are suspected.
[2020-10-09 14:07] VITALS: BP 135/60; PULSE 85; RESP 16; O2SAT 95
[2020-10-09 14:12] VITALS: BP 139/61; PULSE 84; RESP 17; O2SAT 95
[2020-10-09 14:17] VITALS: BP 111/60; PULSE 86; RESP 18; O2SAT 96
[2020-10-09 14:22] VITALS: BP 125/58; PULSE 81; RESP 17; O2SAT 96
== END 2020-10-09 14:25 | disposition home or self-care (01) ==
LOC: RAD 12:49
PROVIDERS: PCP Nurse Practitioner Family; Referring Provider Physical Medicine & Rehabilitation; Visit Provider Physical Medicine & Rehabilitation
DX: M51.17 Intervertebral disc disorders with radiculopathy, lumbosacral region (principal); M48.07 Spinal stenosis, lumbosacral region; M48.062 Spinal stenosis, lumbar region with neurogenic claudication
CPT/HCPCS: 62323; J0702; J1100; J2250; J3010

== ENCOUNTER → 2020-11-15 14:25 | Outpatient (CLI) | payer MEDICARE, OTHER, SELFPAY ==
--- NOTE | 2020-11-15 14:31 | DI.RAD.S_ITS ---
PROCEDURE: XR CHEST 2V INDICATIONS: DYSPNEA TECHNIQUE: 2 views of the chest were acquired. COMPARISON: [facility], CHEST 2 VIEW, 12/31/2012, 14:18. [facility], CHEST 2 VIEW, 03/09/2014, 10:51. FINDINGS: Surgical changes and devices: Lower lumbar fixation hardware incompletely visualized. Left breast and left axillary clips. Lungs and pleura: Lungs are clear. No pleural effusions or pneumothorax. Mediastinum: Mediastinal contours are normal. Heart size is normal. Bones and chest wall: No suspicious bony abnormalities. Soft tissues appear unremarkable. IMPRESSION: No acute cardiopulmonary disease. Dictated by: Micah Nieves [facility] Interpreted: Abdirizak Contreras MD on 11/15/2020 at 17:04 Approved by: Abdirizak Contreras M.D. on 11/15/2020 at 17:13
--- NOTE | 2020-11-30 16:44 | PM.CARDMON.1 ---
Compensation And Benefits Analyst Report Referral & Results Date Patient Seen: 11/15/20 Requesting provider: Harini Aguilar Indication: Atrial fibrillation Duration of monitoring (days): 4 Diary information: There are no patient diary events or patient triggered events to review Data: Minimum heart rate was 53 beats per minute at 07:07 11/18/2020 Maximum sinus heart rate was 118 beats per minute at 10:40 on 11/17/2020 Maximum overall heart rate was 188 beats per minute at 08:56 on 11/19/2020 during a run of atrial fibrillation Less than 1% of identified beats rather ventricular supraventricular ectopic in origin Patient had multiple episodes of atrial fibrillation comprising approximately 39% of the monitoring period. The longest duration was 6 hours and 9 minutes. Heart rate during these episodes 56-188 beats per minute There are also very brief runs of SVT with the longest lasting 14 beats at a rate of 110 beats per minute which suggest more atrial tachycardia rather than true SVT Impression: Patient with intermittent nonsustained paroxysmal atrial fibrillation with heart rate and durations as above Clinical correlation suggested
== END ==
PROVIDERS: PCP Nurse Practitioner Family; Referring Provider Internal Medicine; Visit Provider Internal Medicine
DX: R06.00 Dyspnea, unspecified (principal)
CPT/HCPCS: 71046; 93242; 93244

== ENCOUNTER → 2020-11-16 15:51 | Outpatient (ROUT) | payer MEDICARE, OTHER, SELFPAY ==
[2020-11-16 16:00] LABS: INR 1.3 (0.9-1.3); Prothrombin Time 15.2 SECONDS (10.1-12.7)
== END ==
PROVIDERS: PCP Nurse Practitioner Family; Visit Provider Family Medicine
DX: I48.91 Unspecified atrial fibrillation (principal)
CPT/HCPCS: 85610

== ENCOUNTER → 2020-11-19 15:00 | Outpatient (ROUT) | payer MEDICARE, OTHER, SELFPAY ==
[2020-11-19 15:23] LABS: Prothrombin Time 57.8 SECONDS (10.1-12.7)
[2020-11-19 15:24] LABS: INR 5.1 (0.9-1.3)
== END ==
PROVIDERS: PCP Nurse Practitioner Family; Visit Provider Family Medicine
DX: I48.91 Unspecified atrial fibrillation (principal)
CPT/HCPCS: 85610

== ENCOUNTER → 2020-11-26 14:47 | Outpatient (ROUT) | payer MEDICARE, OTHER, SELFPAY ==
[2020-11-26 14:59] LABS: Prothrombin Time 34.5 SECONDS (10.1-12.7)
== END ==
PROVIDERS: PCP Nurse Practitioner Family; Visit Provider Family Medicine
DX: I48.91 Unspecified atrial fibrillation (principal)
CPT/HCPCS: 85610

== ENCOUNTER → 2020-11-30 14:53 | Outpatient (CLI) | payer MEDICARE, OTHER, SELFPAY ==
--- NOTE | 2020-11-30 14:55 | DI.ECHO.S_ITS ---
[facility] +---------+ : : [address] : : : : [phone] : : : : Phone: [phone]+ Echocardiogram Report + + :Name: JULY WOLF Study Date: 11/30/2020 Height: 62 in : :[facility] ReadingLocation: Weight: 236 lb : : Gender: Female BSA: 2.1 m2 : :: 1940 Age: 80 yrs BP: 158/64 mmHg: :Reason For Study: Atrial fibrillation, Hypertension : :Ordering Physician: Harini : :Jeff Performed By: Yana Henson : :Referring: HARINI GILL : + + Interpretation Summary The ejection fraction is estimated to be 60-65%. The calculated aortic valve area is 1.7 cm2. Procedure: A two-dimensional transthoracic echocardiogram with color flow and Doppler was performed. The study quality was technically adequate. Comparison is made with the echocardiogram of 05/10/2013. The patient was in normal sinus rhythm during the exam. Left Ventricle: The left ventricle is normal in size. Left ventricular wall thickness is borderline increased. There is no ventricular septal defect visualized. The ejection fraction is estimated to be 60-65%. There are no focal wall motion abnormalities. Diastolic function could not be accurately assessed due to confounding valvular disease. Right Ventricle: The right ventricle is normal in size and function. Atria: The left atrium is mildly dilated. Right atrial size is normal. There is no Doppler evidence for an interatrial shunt. Mitral Valve: Calcified mitral apparatus. There is trace mitral regurgitation. Aortic Valve: The aortic valve is not well visualized. The aortic valve is trileaflet. There is mildly reduced leaflet mobility. The peak aortic velocity is 2.2 m/sec. The aortic valve mean gradient is 10.9 mmHg. The calculated aortic valve area is 1.7 cm2. No aortic regurgitation is present. Tricuspid Valve: The tricuspid valve is not well visualized, but is grossly normal. Pulmonary artery pressures cannot be estimated because of the lack of a measurable TR jet velocity but the IVC suggests a CVP of around 3 mmHg. Pulmonic Valve: The pulmonic valve is not well visualized. Great Vessels: The aortic root is normal size. The ascending aorta is normal in size. The aortic arch could not be visualized. The pulmonary artery is not well visualized, but is probably normal size. The IVC is of normal diameter and collapses greater than 50% with a sniff. This suggests a low right atrial pressure of 3 mm Hg. Pericardium/ Pleura There is no pericardial effusion. MMode/2D Measurements & Calculations LVIDd: 4.8 cm LVOT diam: 2.1 cm LVIDs: 3.0 cm Ao root diam: 3.0 cm FS: 39.0 % asc Aorta Diam: 3.2 cm IVSd: 0.93 cm LVPWd: 1.0 cm LV rivers. diameter/BSA (cm/m^2): 2.4 LV sys. diameter/BSA (cm/m^2): 1.4 LA A2 area: 23.8 cm2 RA long axis: 4.4 cm LA A4 area: 20.6 cm2 RA area: 12.8 cm2 LA length (vol): 5.3 cm RA vol: 31.3 ml LA vol: 78.2 ml RA : 15.3 ml/m2 LA vol index: 38.1 ml/m2 IVC diam: 2.0 cm RVD1 (basal): 3.7 cm RVD2 (mid): 3.2 cm TAPSE: 1.8 cm Doppler Measurements & Calculations Ao V2 max: 219.7 cm/sec LVOT Max Sudeep: 99.9 cm/sec Ao V2 mean: 155.1 cm/sec LV V1 max P.0 mmHg Ao max P.3 mmHg LV V1 VTI: 21.1 cm Ao mean P.9 mmHg ALESSIA(I,D): 1.7 cm2 Ao V2 VTI: 45.2 cm ALESSIA(V,D): 1.6 cm2 sev ratio: 0.47 ALESSIA indexed to BSA (cm^2/m^2): 0.81 MV E max sudeep: 90.1 cm/sec PA V2 max: 73.7 cm/sec MV A max sudeep: 86.8 cm/sec PA V2 mean: 50.2 cm/sec MV E/A: 1.0 PA mean P.1 mmHg Med Peak E' Sudeep: 3.8 cm/sec PA Accel Time: 0.11 sec E/E' med: 23.7 Lat Peak E' Sudeep: 4.7 cm/sec E/E' lat: 19.1 E/e' average: 21.4 MV dec time: 0.29 sec MV P1/2t: 87.4 msec MVA(VTI): 1.9 cm2 MV V2 mean: 73.3 cm/sec MV P1/2t max sudeep: 90.7 cm/sec MV mean P.4 mmHg MVA(P1/2t): 2.5 cm2 MV V2 VTI: 38.6 cm SV(LVOT): 74.6 ml Reading Physician:05:24 PM
== END ==
PROVIDERS: PCP Internal Medicine; Referring Provider Internal Medicine; Visit Provider Internal Medicine
DX: I48.91 Unspecified atrial fibrillation (principal); I10 Essential (primary) hypertension
CPT/HCPCS: 93306

== ENCOUNTER → 2020-12-03 14:55 | Outpatient (ROUT) | payer MEDICARE, OTHER, SELFPAY ==
[2020-12-03 15:05] LABS: INR 4.1 (0.9-1.3); Prothrombin Time 46.4 SECONDS (10.1-12.7)
== END ==
PROVIDERS: PCP Internal Medicine; Visit Provider Family Medicine
DX: I48.91 Unspecified atrial fibrillation (principal)
CPT/HCPCS: 85610

== ENCOUNTER → 2021-01-19 09:44 | Outpatient (CLI) | payer MEDICARE, OTHER, SELFPAY ==
[2021-01-19 10:39] LABS: COVID19 -Nasal RAPID Negative (Negative)
== END ==
PROVIDERS: PCP Internal Medicine; Visit Provider Physician Assistant
DX: Z20.822 Contact with and (suspected) exposure to COVID-19 (principal)
CPT/HCPCS: 87635; C9803

== ENCOUNTER → 2021-01-21 10:36 | Outpatient (CLI) | payer MEDICARE, OTHER, SELFPAY ==
--- NOTE | 2021-01-23 04:54 | DI.NM.S_ITS ---
DATE OF SERVICE: PROCEDURE: Pharmacological perfusion study. DATE OF STUDY: 01/21/2021 INDICATIONS: Shortness of breath with underlying diabetes mellitus, hypertension, hyperlipidemia. RADIOPHARMACEUTICAL: 27.0 millicurie technetium-99m Myoview IV was injected at stress and 24.6 millicurie technetium-99m Myoview IV was injected at rest. CARDIAC STRESS: The patient underwent pharmacological perfusion study with Lexiscan intravenous infusion as per standard protocol under the supervision of an attending staff. The patient remained hemodynamically stable. Baseline rhythm was sinus. During stress, no convincing ischemic changes seen. No significant arrhythmia seen. During Lexiscan infusion, patient developed headache, nausea, and bandlike chest pressure which was on a scale of 1-10, 6 in intensity. It got resolved in recovery. No [____] injection was needed. RAW DATA: Breast shadow was seen. Patient's weight is 230 pounds. GATED STUDY: Resting LV ejection fraction 74 and stress LV ejection fraction 81%. Resting end-diastolic volume 86 mL. TID ratio 0.74, which is within normal limits. Lung/heart ratio 0.27, which is within normal limits. MYOCARDIAL PERFUSION SCAN: Resting supine images revealed a small size, mildly decreased perfusion of distal anterior wall as well as distal inferior wall, which got improved during stress supine images. There were no stress prone images. Stress supine images did not reveal any convincing significant perfusion defect. CONCLUSION: I will call this study likely a normal myocardial perfusion study as the stress supine images did not reveal any significant perfusion defect. There is preserved left ventricular function. TID ratio within normal limits. The patient had a pharmacological perfusion study in April 2014 and at that time had similar perfusion defect, which got resolved during stress supine as well as stress prone images. Overall this is a low-risk myocardial perfusion scan. Wendy Wilkinson - BITUMINOUS DISTRIBUTOR OPERATOR/sheyla/cs doc#: [id number]/job#: [id number] dd: 01/22/2021 17:19:00 dt: 01/23/2021 04:31:00 DICTATING MD/COPIES TO: Sommer Jordan MD COPIES MNE: MARÍA ELENA;
== END ==
PROVIDERS: PCP Family Medicine; Referring Provider Internal Medicine Cardiovascular Disease; Visit Provider Internal Medicine Cardiovascular Disease
DX: R06.00 Dyspnea, unspecified (principal); R07.9 Chest pain, unspecified; R06.02 Shortness of breath; E11.9 Type 2 diabetes mellitus without complications
CPT/HCPCS: 78452; 93017; A9502; J2785

== ENCOUNTER → 2021-03-26 09:48 | Outpatient (ROUT) | payer MEDICARE, OTHER, SELFPAY ==
[2021-03-26 09:59] LABS: INR 1.2 (0.9-1.3); Prothrombin Time 13.8 SECONDS (10.1-12.7)
== END ==
PROVIDERS: PCP Family Medicine; Visit Provider Family Medicine
DX: I48.91 Unspecified atrial fibrillation (principal)
CPT/HCPCS: 85610

== ENCOUNTER → 2021-04-03 13:35 | Outpatient (CLI) | payer MEDICARE, OTHER, SELFPAY ==
--- NOTE | 2021-04-03 13:36 | DI.CT.S_ITS ---
PROCEDURE: CT KIDNEY URETER BLADDER (KUB) INDICATIONS: Renal cyst TECHNIQUE: Axial sections were acquired from the lung bases to the pubic symphysis. Coronal and sagittal reformats were performed. For radiation dose reduction, the following was used: automated exposure control, adjustment of mA and/or kV according to patient size. COMPARISON:[facility], , RENAL COMPLETE, 09/28/2020, 8:19. FINDINGS: Image quality: Excellent. Lung bases: Unremarkable. Heart: No significant findings. URINARY: Right Kidney: No stones or hydronephrosis on the right. Right Ureter: No hydroureter. Left Kidney: There is a single calculus measuring 4 mm at the middle 3rd renal collecting system, nonobstructive, posterior left kidney. At the inferior left kidney there is a water density large cyst which measures up to 5.9 cm AP and 6.1 cm transverse. No solid component is associated. Left Ureter: No hydroureter. Bladder: Normal wall thickness. No stones. ABDOMEN: Liver: Unremarkable. Gallbladder: Unremarkable. Biliary ducts: Unremarkable. Pancreas: Unremarkable. Spleen: Unremarkable. Adrenal Glands: Unremarkable. Stomach and Bowel: Stomach, small bowel loops, and colon are unremarkable. Peritoneum: No abnormal intraperitoneal fluid. No free air. Ventral Wall: No hernia. Abdominal Nodes: No enlarged retroperitoneal or mesenteric lymph nodes. Vessels: Aorta and inferior vena cava are normal in size. PELVIS: Pelvic Organs: Unremarkable. Pelvic Nodes: Unremarkable. Miscellaneous: No inguinal hernias are seen. Bones: Unremarkable. IMPRESSION: 5.9 x 6.1 cm cyst projecting from the inferior cortex of the right kidney. No follow-up recommended. This is simple in character and measures water in density. A single collecting system calculus measuring 4 mm is present at the posterior mid collecting system of the left kidney. No right-sided urinary tract stone is seen. Dictated by: Avila Roman M.D. on 04/03/2021 at 16:07 Approved by: Avila Roman M.D. on 04/03/2021 at 16:13
== END ==
PROVIDERS: PCP Family Medicine; Referring Provider Specialist; Visit Provider Specialist
DX: N28.1 Cyst of kidney, acquired (principal); N20.0 Calculus of kidney
CPT/HCPCS: 74176

== ENCOUNTER → 2021-04-04 10:01 | Outpatient (ROUT) | payer MEDICARE, OTHER, SELFPAY ==
[2021-04-04 10:13] LABS: INR 1.2 (0.9-1.3); Prothrombin Time 13.6 SECONDS (10.1-12.7)
== END ==
PROVIDERS: PCP Family Medicine; Visit Provider Family Medicine
DX: I48.91 Unspecified atrial fibrillation (principal)
CPT/HCPCS: 85610

== ENCOUNTER → 2021-05-06 10:54 | Outpatient (CLI) | payer MEDICARE, OTHER, SELFPAY | PROVIDERS: PCP Family Medicine; Referring Provider Family Medicine; Visit Provider Family Medicine | DX: Z12.31 Encounter for screening mammogram for malignant neoplasm of breast (principal); Z53.9 Procedure and treatment not carried out, unspecified reason ==

== ENCOUNTER → 2021-05-15 10:44 | Outpatient (CLI) | payer MEDICARE, OTHER, SELFPAY ==
[2021-05-15 11:24] LABS: Hemoglobin A1C% w Est Avg Glu 8.2 % (4.0-6.0)
== END ==
PROVIDERS: PCP Family Medicine; Referring Provider Family Medicine; Visit Provider Family Medicine
DX: E11.9 Type 2 diabetes mellitus without complications (principal)
CPT/HCPCS: 36415; 83036

== ENCOUNTER → 2021-05-20 09:15 | Outpatient (CLI) | payer MEDICARE, OTHER, SELFPAY ==
--- NOTE | 2021-05-20 | DI.MG.S_ITS ---
BILATERAL DIGITAL DIAGNOSTIC MAMMOGRAM 3D/2D: 05/20/2021 CLINICAL: Breast pain. Comparison is made to exams dated: 05/01/2020 mammogram, 02/17/2019 mammogram, 04/08/2018 mammogram, 02/24/2018 mammogram, 02/05/2018 mammogram, and 01/08/2017 mammogram - [facility]. The tissue of both breasts is heterogeneously dense. This may lower the sensitivity of mammography. There are benign post operative findings in both breasts. No significant masses, calcifications, or other findings are seen in either breast. IMPRESSION: BENIGN There is no abnormality seen in the right breast to correspond with the diffuse pain, however, clinical correlation is recommended. There is no mammographic evidence of malignancy. A 1 year screening mammogram is recommended. This exam was interpreted at Station ID: [id number]. NOTE: For mammograms, a report in lay terms will be sent to the patient. Approximately 15% of breast malignancies will not be visualized mammographically. In the management of a palpable breast mass, a negative mammogram must not discourage biopsy of a clinically suspicious lesion. Electronically Signed By: Toñito feng/francisco:05/20/2021 09:57:26 letter sent: Clinical Evaluation ACR BI-RADS Category 2: Benign Finding(s) 3342F
== END ==
PROVIDERS: PCP Family Medicine; Referring Provider Family Medicine; Visit Provider Family Medicine
DX: N64.4 Mastodynia (principal)
CPT/HCPCS: 77066; G0279

== ENCOUNTER → 2021-08-09 11:15 | Outpatient (CLI) | payer MEDICARE, OTHER, SELFPAY ==
--- NOTE | 2021-08-09 11:17 | DI.RAD.S_ITS ---
PROCEDURE: XR HIP W PEL IF DONE FAUSTINO MIN 4V INDICATIONS: left hip djd TECHNIQUE: AP pelvis with lateral view(s) of the bilateral hip(s). COMPARISON: [facility], , HIP 2V RIGHT, 09/08/2009, 11:54. FINDINGS: Bones: No fractures or dislocations. Pelvic ring appears intact. Symmetric appearing [id number] bilateral hip joint osteoarthritic changes are noted. No evidence of avascular necrosis of femoral head. No suspicious bony lesions. Post fusion changes in lower lumbar spine at L4-5 level is seen. Soft tissues: The visualized bowel gas pattern is normal. No suspicious soft tissue calcifications. IMPRESSION: Symmetric appearing [id number] bilateral hip joint osteoarthritis. No fracture or dislocation. No evidence of avascular necrosis. Dictated by: Trev Angulo M.D. on 08/09/2021 at 11:44 Approved by: Trev Angulo M.D. on 08/09/2021 at 11:46
== END ==
PROVIDERS: PCP Family Medicine; Referring Provider Physical Medicine & Rehabilitation; Visit Provider Physical Medicine & Rehabilitation
DX: M16.0 Bilateral primary osteoarthritis of hip; M96.1 Postlaminectomy syndrome, not elsewhere classified; M43.17 Spondylolisthesis, lumbosacral region; M48.062 Spinal stenosis, lumbar region with neurogenic claudication; C50.911 Malignant neoplasm of unspecified site of right female breast; C50.912 Malignant neoplasm of unspecified site of left female breast; Z98.1 Arthrodesis status; Z98.890 Other specified postprocedural states
CPT/HCPCS: 73522; 99214

== ENCOUNTER → 2021-08-12 13:33 | Outpatient (CLI) | payer MEDICARE, OTHER, SELFPAY ==
[2021-08-12 14:16] LABS: COVID19 -Nasal RAPID Negative (Negative)
== END ==
PROVIDERS: PCP Family Medicine; Visit Provider Physical Medicine & Rehabilitation
DX: Z20.822 Contact with and (suspected) exposure to COVID-19 (principal)
CPT/HCPCS: 87635; C9803

== ENCOUNTER 2021-08-13 14:45 | Outpatient (CLI) | payer MEDICARE, OTHER, SELFPAY ==
[2021-08-13] VITALS (8 sets, daily range): BP systolic 109–137; BP diastolic 51–89; PULSE 81–96; RESP 10–20; TEMP 36.6; O2SAT 92–96
--- NOTE | 2021-08-13 14:46 | DI.RAD.S_ITS ---
PROCEDURE: PAIN L INTERLAMINAR/CAUDAL INJ INDICATIONS: SPONDYLOSIS COMPARISON: [facility], XA, PAIN L INTERLAMINAR/CAUDAL INJ, 10/09/2020, 13:53. FINDINGS: Fluoroscopic spot filming was performed to verify placement of a spinal needle at the L5-S1 level, as labeled on the films. Appropriate location of the needle tip was confirmed by injection of iodinated contrast. IMPRESSION: No significant intraprocedural abnormality. Dictated by: Tan Junior M.D. on 08/13/2021 at 15:31 Approved by: Tan Junior M.D. on 08/13/2021 at 15:31
[2021-08-13] MEDS: MIDAZOLAM 5 MG/5 ML VIAL IV (15:18)
[2021-08-13] MEDS: fentaNYL 100 MCG/2 ML INJ 50 MCG IV (15:18)
[2021-08-13] MEDS: BETAMETHASONE 30 MG/5 ML MDV 12 MG INJ (15:22)
[2021-08-13] MEDS: IOPAMIDOL 15 ML VIAL 3 ML INJ (15:22)
[2021-08-13] MEDS: DEXAMETHASONE 10 MG/ML VIAL 20 MG INJ (15:22)
[2021-08-13] MEDS: BUPIVACAINE 0.25% (PF) VIAL 2 ML INJ (15:22)
--- NOTE | 2021-08-13 15:32 | PM.PROC.IR.1 ---
Date/Time/Diagnoses Date of procedure: 08/13/21 Time of procedure: 15:33 Pre-procedure diagnosis: 1. HNP WITH RADICULAR FEATURES, 2. MULTILEVEL CENTRAL STENOSIS, Post-procedure diagnosis: same Procedure Notes Procedure: 1. FLUOROSCOPICALLY GUIDED CONTRAST CONTROLLED INTERLAMINAR EPIDURAL STEROID INJECTION - L5/S1 Indications: Wendy is referred by Dr. Diaz for treatment of Bilateral Foraminal Stenosis L>R LE symptoms. Physician: Layton Castro Total Fluoroscopy time (seconds): 8 Total sedation minutes: 10 Complications: none Procedure in detail & Post-procedure care: FINDINGS Multilevel Central Spinal Stenosis with Nerve Root Compression DESCRIPTION OF PROCEDURE Fluoroscopically guided, contrast-controlled L5/S1 translaminar epidural steroid injection. Following review of allergy and review of potential side effects and complications, including, but not necessarily limited to, infection, allergic reaction, local tissue breakdown, temporary as well as permanent nerve injury, paralysis, stroke and possible , the patient indicated that the patient understood and agreed to proceed. An informed consent document was signed by the patient, witnessed by a nurse, and placed in the patient's chart. Additionally, other treatment options including modalities, medications, and physical therapy were reviewed with the patient. After review of previous anaesthesic history and IV conscious sedation the patient was deemed safe to proceed with today?s procedure with IV conscious sedation as ASA class II designation. Safety time-out was performed to confirm patient ID, procedure to be performed and site of procedure. IV sedation was accomplished with a combination of 1mg of Versed and 50mcg of Fentanyl administered by the RN after DO order, titrated to patient comfort during the course of the procedure while the patient remained responsive to all verbal commands. In the prone position, following sterile prep and drape of the lumbar region, the L5/S1 translaminar space was identified fluoroscopically. The skin was anesthetized via a 25-gauge, 1.5-inch needle with 1% lidocaine solution. At this point, a 22-gauge short bevel spinal needle was atraumatically introduced and advanced under fluoroscopic guidance into the region of the L5/S1 translaminar space. Depth was confirmed on lateral view. Radiological data, including multiple fluoroscopic views of the lumbar spine, reveal a spinal needle at the L5/S1 translaminar space. Lateral views then show placement of the needle in the epidural space. Subsequent views show contrast material flowing superiorly and inferiorly in the epidural space. No vascular or intrathecal uptake is observed. At this point, using loss of resistance technique with saline and air, the epidural space was entered. This was confirmed following negative aspiration with injection of approximately 1.5cc of Isovue 200, showing excellent epidural flow without vascular or intrathecal uptake. At this point, 1 cc of 1% lidocaine solution combined with 4cc or 20mg of dexamethasone and 12mg of betamethasone was injected without incident. The patent tolerated the procedure without signs of symptoms of complications prior to transfer to the recovery area for further monitoring. The patient was then transferred to the recovery area where they were observed for an appropriate period of time after the injection. The patient reported a VAS score of 6 prior to the procedure and a post-procedure VAS of 0. POST OP INSTRUCTIONS The patient was provided a Pain Log to continue to record their response to the target-specific procedure prior to follow-up visit with their referring physician. Additionally, specific post-injection care instructions and a contact number to our office were provided if concerns arise regarding possible complications associated with the procedure are suspected.
== END 2021-08-13 15:56 | disposition home or self-care (01) ==
PROVIDERS: PCP Family Medicine; Referring Provider Physical Medicine & Rehabilitation; Visit Provider Physical Medicine & Rehabilitation
DX: M51.17 Intervertebral disc disorders with radiculopathy, lumbosacral region (principal); M48.07 Spinal stenosis, lumbosacral region
CPT/HCPCS: 62323; 99151; 99152; J0702; J1100; J2250; J3010

== ENCOUNTER → 2022-01-22 09:30 | Outpatient (CLI) | payer MEDICARE, OTHER, SELFPAY ==
--- NOTE | 2022-01-22 09:31 | DI.MRI.S_ITS ---
PROCEDURE: MR CERVICAL SPINE WO CON INDICATIONS: cervical post lami syndrome TECHNIQUE: Noncontrast sagittal T1 spin echo and T2 fast spin echo, sagittal STIR, foraminal oblique sagittal T2 fast spin echo, and axial gradient echo or T2 fast spin echo through the cervical spine. COMPARISON: [facility], CR, XR CERVICAL SPINE 4V OR 5V, 07/06/2020, 11:17. [facility], MR, MR CERVICAL SPINE WO CON, 09/28/2020, 10:17. FINDINGS: Image quality: Excellent. Alignment and Curvature: Persistent grade 1 retrolisthesis at C3-4 and anterior listhesis at T2-3, T3-4. Bone Marrow: Decompressive laminectomies without instrumentation noted at C5, C6 and C7, similar to the prior exam. No multilevel degenerative endplate changes noted. Spinal Cord: Visualized spinal cord has normal size and signal. No cerebellar tonsillar herniation. Paraspinous Soft Tissues: No paravertebral masses. Prevertebral soft tissues are normal in thickness. C2-C3: Disc space narrowing. Posterior central disc osteophyte complex results in moderate central stenosis without cord deformation. No foraminal stenosis. C3-C4: Disc space narrowing posterior disc osteophyte complex and hypertrophic facet joints again results in mild central stenosis without cord deformation. There is moderate bilateral foraminal stenosis present. C4-C5: Disc space narrowing with posterior disc osteophyte complex again results in mild central stenosis. No cord deformation. Hypertrophic uncovertebral joints results in severe right and moderate left foraminal stenosis. C5-C6: Disc space narrowing and posterior disc osteophyte complex present. Decompressive laminectomy noted without central stenosis. Mild right and moderate left foraminal stenosis present. C6-C7: Disc space narrowing with posterior disc osteophyte complex. Decompressive laminectomy noted without central stenosis. Mild right and moderate left foraminal stenosis present. C7-T1: Disc height is preserved. No central or foraminal stenosis. IMPRESSION: 1. Degenerative disc disease and arthropathy results in stable moderate central stenosis C2-3 and C3-4 without cord deformation 2. Decompressive laminectomies at C5, C6 and C7 without instrumentation, stable from the prior Approved by: Saurabh Elizondo M.D. on 01/22/2022 at 10:34
== END ==
PROVIDERS: PCP Family Medicine; Referring Provider Physical Medicine & Rehabilitation; Visit Provider Physical Medicine & Rehabilitation
DX: M96.1 Postlaminectomy syndrome, not elsewhere classified (principal); M47.812 Spondylosis without myelopathy or radiculopathy, cervical region; M50.31 Other cervical disc degeneration, high cervical region; M48.02 Spinal stenosis, cervical region
CPT/HCPCS: 72141

== ENCOUNTER → 2022-02-10 09:36 | Outpatient (CLI) | payer MEDICARE, OTHER, SELFPAY ==
--- NOTE | 2022-02-10 09:38 | DI.RAD.S_ITS ---
PROCEDURE: XR LUMBAR SPINE MIN 4V INDICATIONS: Axial low back pain status post fusion TECHNIQUE: 5 views of the lumbar spine were acquired, including bilateral oblique views. COMPARISON: None. FINDINGS: Bones: 5 nonrib-bearing vertebrae are present. Postsurgical changes compatible with L4-L5 posterior fusion. Orthopedic hardware is in expected position. Convex right curvature of the thoracolumbar spine. There is mild, approximately 5 millimeters of T12-L1 and L1-L2 retrolisthesis. No vertebral body compression fractures. No suspicious bony lesions. Severe T12-L1 and L2-L3 degenerative disc disease. Moderate L1-L2, L3-L4 and L5-S1 degenerative disc disease. Moderate facet arthropathy throughout the lumbar spine. Soft tissues: Overlying bowel gas pattern is normal. No suspicious soft tissue calcifications. Oblique images: No pars defects. IMPRESSION: 1. Multilevel degenerative disc disease. 2. Multilevel facet arthropathy. 3. No fracture. No acute osseous lesion. If symptoms and/or clinical suspicion for pathology persists, evaluation with MRI should be considered for further assessment. 4. Status post L4-L5 posterior fusion Dictated by: Criss Mendez MD, PhD on 02/10/2022 at 12:47 Approved by: Criss Mendez MD, PhD on 02/10/2022 at 12:50
--- NOTE | 2022-02-10 09:38 | DI.MRI.S_ITS ---
PROCEDURE: MR LUMBAR SPINE WO CON INDICATIONS: Axial low back pain status post fusion TECHNIQUE: Noncontrast sagittal T1 spin echo and T2 fast echo, sagittal STIR, and T2 fast spin echo through the lumbar spine. In cases with scoliosis, additional coronal T2 fast spin echo may be performed. COMPARISON: [facility], MR, MR LUMBAR SPINE WO CON, 02/17/2019, 13:26. [facility], CR, XR LUMBAR SPINE MIN 4V, 02/10/2022, 9:46. FINDINGS: Image quality: Excellent. Alignment and Curvature: There is mild, approximately 5 millimeters of T12-L1 retrolisthesis. There is trace, approximately 2-3 millimeters of L1-L2, L2-L3 and L3-L4 retrolisthesis. There is mild, approximately 5 millimeters of L5-S1 anterolisthesis. Convex right thoracolumbar spine is noted. Bone Marrow: Postsurgical changes compatible with L4-L5 posterior fusion and L4 left laminotomy noted.. No acute vertebral body compression fractures. Spinal Cord: Conus medullaris terminates at the L2 level. Visualized cord demonstrates normal signal and size. Paraspinous Soft Tissues: No paravertebral masses. Left renal cyst. T12-L1: Loss of disc signal and height. Mild, diffuse disc bulge. Mild bilateral facet hypertrophy. Mild narrowing of the central canal. Mild bilateral neural foraminal narrowing. No neural compression. L1-L2: Loss of disc signal. Mild, diffuse disc bulge. Mild bilateral facet hypertrophy. Mild ligamentum flavum hypertrophy. Mild narrowing of the central canal. Mild bilateral neural foraminal narrowing. No neural compression L2-L3: Loss of disc signal and slight loss of disc height. Mild, diffuse disc bulge. Moderate bilateral facet hypertrophy. Moderate ligamentum flavum hypertrophy. Moderate narrowing of the central canal. Moderate bilateral neural foraminal narrowing. No neural compression. L3-L4: Loss of disc signal. Mild to moderate diffuse disc bulge. Severe bilateral facet hypertrophy. Severe ligamentum flavum hypertrophy. Severe narrowing of the central canal compression of the nerve roots of the cauda equina. Severe right and moderate to severe left neural foraminal narrowing with compression of the exiting right L3 nerve root root and slight compression of the exiting left L3 nerve root. L4-L5: Status post fusion. Mild bilateral facet hypertrophy. Mild narrowing of the central canal. Moderate bilateral neural foraminal narrowing. No neural compression L5-S1: Loss of disc signal. Mild, diffuse disc bulge. Moderate bilateral facet hypertrophy. Mild narrowing of the central canal. Mild bilateral neural foraminal narrowing. No neural compression IMPRESSION: 1. Postsurgical changes. 2. Multilevel trace and mild degenerative spondylolisthesis. 3. Multilevel degenerative disc disease. 4. Multilevel facet arthropathy. 5. Severe L3-L4 central canal narrowing with compression of the nerve roots of the cauda equina. 6. Severe right and moderate to severe left L3-L4 neural foraminal narrowing with compression of the exiting L3 nerve roots. Dictated by: Criss Mendez MD, PhD on 02/10/2022 at 15:05 Approved by: Criss Mendez MD, PhD on 02/10/2022 at 15:12
== END ==
PROVIDERS: PCP Family Medicine; Referring Provider Physical Medicine & Rehabilitation; Visit Provider Physical Medicine & Rehabilitation
DX: M43.17 Spondylolisthesis, lumbosacral region (principal); M51.35 Other intervertebral disc degeneration, thoracolumbar region; M51.36 Other intervertebral disc degeneration, lumbar region; M51.37 Other intervertebral disc degeneration, lumbosacral region; M47.816 Spondylosis without myelopathy or radiculopathy, lumbar region; Z98.1 Arthrodesis status
CPT/HCPCS: 72110; 72148

== ENCOUNTER → 2022-04-07 16:06 | Outpatient (CLI) | payer MEDICARE, OTHER, SELFPAY ==
[2022-04-07 16:28] LABS: COVID19 -Nasal RAPID POSITIVE (Negative)
== END ==
PROVIDERS: PCP Family Medicine; Visit Provider Physical Medicine & Rehabilitation
DX: U07.1 COVID-19 (principal); M16.12 Unilateral primary osteoarthritis, left hip; M96.1 Postlaminectomy syndrome, not elsewhere classified; M43.17 Spondylolisthesis, lumbosacral region; M41.26 Other idiopathic scoliosis, lumbar region; M47.816 Spondylosis without myelopathy or radiculopathy, lumbar region; Z98.1 Arthrodesis status; Z96.653 Presence of artificial knee joint, bilateral
CPT/HCPCS: 87635; 99214

== ENCOUNTER 2022-04-29 09:14 | Outpatient (CLI) | payer MEDICARE, OTHER, SELFPAY ==
[2022-04-29] VITALS (9 sets, daily range): BP systolic 130–159; BP diastolic 61–68; PULSE 60–71; RESP 12–22; TEMP 36.6; O2SAT 94–99
--- NOTE | 2022-04-29 09:16 | DI.RAD.S_ITS ---
PROCEDURE: PAIN L/S FACET INJ/BLK 1ST FAUSTINO COMPARISON: None. INDICATIONS: SPONDYLOSIS FINDINGS: Access needles at the bilateral L2, L3 and L4 pedicles . Injection of small amount of contrast material demonstrates needle tips or extra thecal. IMPRESSION: Access needles at the bilateral L2, L3 and L4 pedicles for bilateral L2, L3 and L4 medial branch blocks. Dictated by: Criss Mendez MD, PhD on 04/29/2022 at 13:25 Approved by: Criss eMndez MD, PhD on 04/29/2022 at 13:25
[2022-04-29 10:26] LABS: COVID19 -Nasal RAPID Negative (Negative)
[2022-04-29] MEDS: MIDAZOLAM 2 MG/2 ML VIAL IV (10:50)
[2022-04-29] MEDS: IOPAMIDOL 15 ML VIAL 3 ML INJ (10:52)
[2022-04-29] MEDS: BUPIVACAINE 0.5% (PF) VIAL 10 ML INJ (10:53)
[2022-04-29] MEDS: LIDOCAINE 1% 20 ML INJ (10:54)
--- NOTE | 2022-04-29 11:12 | P.PCN_ITS ---
Date/Time/Diagnoses Date of procedure: 04/29/22 Time of procedure: 11:12 Pre-procedure diagnosis: FACET ARTHROPATHY Post-procedure diagnosis: same Procedure Notes Procedure: 1. BILATERAL L3, L4 AND L5 DIAGNOSTIC MB BLOCKS Indications: Wendy is referred by Dr. Humphries for treatment of Bilateral Axial LBP. Physician: Layton Castro Total Fluoroscopy time (seconds): 17 Total sedation minutes: 18 Complications: none Procedure in detail & Post-procedure care: DESCRIPTION OF PROCEDURE Fluoroscopically guided, contrast-controlled bilateral L2, L3, L4 medial branch blocks with 0.5cc of 0.5% Marcaine. Following review of allergy and review of potential side effects and complications, including, but not necessarily limited to, infection, allergic reaction, local tissue breakdown, nerve injury, paralysis, stroke and possible , the patient indicated that the patient understood and agreed to proceed. An informed consent document was signed by the patient, witnessed by a nurse, and placed in the patient's chart. After review of previous anaesthesic history and IV conscious sedation the patient was deemed safe to proceed with today's procedure with IV conscious sedation as ASA class II designation. Safety time-out was performed to confirm patient ID, procedure to be performed and site of procedure. IV sedation was accomplished with a combination of 3mg of Versed was administered by the RN af ter DO order, titrated to patient comfort during the course of the procedure while the patient remained responsive to all verbal commands In the prone position, following sterile prep and drape of the lumbar region, the right L2, L3, L4 anatomical location of the medial branch of the dorsal ramus was identified fluoroscopically. Subsequently an anesthetic skin wheal using 1% lidocaine solution was initiated at each of the anatomical spots. Subsequently then a 22-gauge 3.5-inch spinal needle was atraumatically introduced and advanced under fluoroscopic guidance at each of the corresponding sites at the right L2, L3, L4 MB. After negative aspiration, 0.2cc of Isovue 200 was injected, confirming placement without vascular or intrathecal uptake. Subsequently then 0.5cc of 0.5% Marcaine solution was injected at each of the corresponding sites at the right L2, L3, L4 medial branch locations. The identical procedure was replicated on the left. The patient tolerated the procedure well without signs or symptoms of complications. The patient tolerated the procedure well without signs or symptoms of complications prior to transfer to the recovery area continued monitoring without incident. Post-procedure, the patient was monitored initiating provocative activities to measure the amount of relief from block of the facetogenic pain. The patient reported a VAS of 7 prior to the procedure and a post-procedure VAS of 1. It has been a pleasure to assist in the diagnostic and therapeutic care of your patient. POST OP INSTRUCTIONS The patient was provided with a Pain Log to complete over the next several hours and subsequent days prior to the patient's follow up with the ordering physician. If the patient has liquefaction and regasification helper relief to the solution applied, then they may be a candidate for medial branch rhizotomy. The patient is aware, was provided, once again, with a Pain Log and will follow up with the referring physician for review and clinical correlation
== END 2022-04-29 11:34 | disposition home or self-care (01) ==
LOC: RAD 09:16
PROVIDERS: PCP Family Medicine; Referring Provider Physical Medicine & Rehabilitation; Visit Provider Physical Medicine & Rehabilitation
DX: M47.816 Spondylosis without myelopathy or radiculopathy, lumbar region (principal); M47.817 Spondylosis without myelopathy or radiculopathy, lumbosacral region; Z20.822 Contact with and (suspected) exposure to COVID-19
CPT/HCPCS: 64493; 64494; 87635; 99152; J2250

== ENCOUNTER 2022-07-01 09:53 | Outpatient (CLI) | payer MEDICARE, OTHER, SELFPAY ==
[2022-07-01] VITALS (9 sets, daily range): BP systolic 127–166; BP diastolic 58–100; PULSE 67–79; RESP 14–19; TEMP 36.2; O2SAT 95–99
--- NOTE | 2022-07-01 09:57 | DI.RAD.S_ITS ---
PROCEDURE: PAIN L/S FACET INJ/BLK 1ST FAUSTINO COMPARISON: [facility], XA, PAIN L/S FACET INJ/BLK 1ST FAUSTINO, 04/29/2022, 10:54. INDICATIONS: SPONDYLOSIS FINDINGS: Needle placement is noted overlying L2, L3 and L4 with contrast injection. Lower lumbar fusion at L4-5 is noted. IMPRESSION: Needle placement as above. Dictated by: Annetta Vogel M.D. on 07/01/2022 at 21:38 Approved by: Annetta Vogel M.D. on 07/01/2022 at 21:39
[2022-07-01 10:28] LABS: COVID19 -Nasal RAPID Negative (Negative)
[2022-07-01] MEDS: LIDOCAINE 1% (PF) 5 ML INJ (11:36)
[2022-07-01] MEDS: IOPAMIDOL 15 ML VIAL 3 ML INJ (11:36)
[2022-07-01] MEDS: MIDAZOLAM 2 MG/2 ML VIAL 3 MG IV (11:39)
[2022-07-01] MEDS: BUPIVACAINE 0.5% (PF) VIAL 5 ML INJ (11:39)
--- NOTE | 2022-07-01 11:51 | PM.PROC.IR.1 ---
Date/Time/Diagnoses Date of procedure: 07/01/22 Time of procedure: 11:51 Pre-procedure diagnosis: 1. FACET ARTHROPATHY Post-procedure diagnosis: same Procedure Notes Procedure: 1. BILATERAL L2, L3, L4 DIAGNOSTIC MB BLOCKS Indications: Wendy is referred by Dr. Humphries for treatment of Bilateral Axial LBP. Physician: Layton Castro Total Fluoroscopy time (seconds): 14 Total sedation minutes: 17 Complications: none Procedure in detail & Post-procedure care: DESCRIPTION OF PROCEDURE Fluoroscopically guided, contrast-controlled bilateral L2, L3, L4 medial branch blocks with 0.5cc of 2% Lidocaine. Following review of allergy and review of potential side effects and complications, including, but not necessarily limited to, infection, allergic reaction, local tissue breakdown, nerve injury, paralysis, stroke and possible , the patient indicated that the patient understood and agreed to proceed. An informed consent document was signed by the patient, witnessed by a nurse, and placed in the patient's chart. After review of previous anaesthesic history and IV conscious sedation the patient was deemed safe to proceed with today's procedure with IV conscious sedation as ASA class II designation. Safety time-out was performed to confirm patient ID, procedure to be performed and site of procedure. IV sedation was accomplished with a combination of 3mg of Versed was administered by the RN after DO order, titrated to patient comfort during the course of the procedure while the patient remained responsive to all verbal commands In the prone position, following sterile prep and drape of the lumbar region, the right L2, L3, L4 anatomical location of the medial branch of the dorsal ramus was identified fluoroscopically. Subsequently an anesthetic skin wheal using 1% lidocaine solution was initiated at each of the anatomical spots. Subsequently then a 22-gauge 3.5-inch spinal needle was atraumatically introduced and advanced under fluoroscopic guidance at each of the corresponding sites at the right L2, L3, L4 MB. After negative aspiration, 0.2cc of Isovue 200 was injected, confirming placement without vascular or intrathecal uptake. Subsequently then 0.5cc of 2% Lidocaine solution was injected at each of the corresponding sites at the right L2, L3, L4 medial branch locations. The identical procedure was replicated on the left. The patient tolerated the procedure well without signs or symptoms of complications. The patient tolerated the procedure well without signs or symptoms of complications prior to transfer to the recovery area continued monitoring without incident. Post-procedure, the patient was monitored initiating provocative activities to measure the amount of relief from block of the facetogenic pain. The patient reported a VAS of 7 prior to the procedure and a post-procedure VAS of 1. It has been a pleasure to assist in the diagnostic and therapeutic care of your patient. POST OP INSTRUCTIONS The patient was provided with a Pain Log to complete over the next several hours and subsequent days prior to the patient's follow up with the ordering physician. If the patient has christian science reader relief to the solution applied, then they may be a candidate for medial branch rhizotomy. The patient is aware, was provided, once again, with a Pain Log and will follow up with the referring physician for review and clinical correlation
== END 2022-07-01 12:09 | disposition home or self-care (01) ==
LOC: RAD 09:55
PROVIDERS: PCP Family Medicine; Referring Provider Physical Medicine & Rehabilitation; Visit Provider Physical Medicine & Rehabilitation
DX: M47.816 Spondylosis without myelopathy or radiculopathy, lumbar region (principal); M41.9 Scoliosis, unspecified; Z98.1 Arthrodesis status; Z20.822 Contact with and (suspected) exposure to COVID-19
CPT/HCPCS: 64493; 64494; 87635; 99152; J2250

== ENCOUNTER → 2022-07-25 12:08 | Outpatient (CLI) | payer MEDICARE, OTHER, SELFPAY ==
--- NOTE | 2022-07-25 | DI.US.S_ITS ---
LIMITED ULTRASOUND OF RIGHT BREAST AND AXILLA: 07/25/2022 CLINICAL: Focal right breast pain. Comparison is made to exams dated: 07/25/2022 mammogram, 05/20/2021 mammogram, 05/01/2020 mammogram, and 02/17/2019 mammogram - [facility]. Color flow and real-time ultrasound of the right breast 2 o'clock, 6 o'clock, retroareolar, and axilla regions were performed. Ramirze scale images of the real-time examination were reviewed. There is a irregular heterogeneous hypoechoic area in the region deep to the skin scar measuring 2.8 cm. No internal blood flow is seen within this abnormality. This most likely represents scar tissue. There is overlying skin thickening with hyperemia. No mass in the region of pain at 2:00 10 cm from the nipple. No significant abnormalities were seen sonographically in the right axilla. IMPRESSION: INCOMPLETE: NEEDS ADDITIONAL IMAGING EVALUATION Suspect irregular scar in the inferior right breast in the region of pain measuring 2.8 cm. There is overlying skin thickening with hyperemia. Lending Activities Supervisor reports skin erythema in this region. No mass in the region of pain at 2:00 10 cm from the nipple. Left breast is incompletely evaluated mammographically. Recommend breast MRI with contrast for further evaluation. Exam findings were conveyed to the patient. This exam was interpreted at Station ID: [id number]. Electronically Signed By: Abdirizak Contreras M.D. [facility] – [place], [place]/:07/25/2022 14:32:15 letter sent: Additional Imaging Needed Ultrasound BI-RADS: 0 Indeterminate
--- NOTE | 2022-07-25 | DI.MG.S_ITS ---
BILATERAL DIGITAL DIAGNOSTIC MAMMOGRAM 3D/2D POST LUMPECTOMY: 07/25/2022 CLINICAL: Right breast pain. Comparison is made to exams dated: 05/20/2021 mammogram, 05/01/2020 mammogram, and 02/17/2019 mammogram - [facility]. Both breasts are heterogeneously dense, which may obscure small masses (category c / 51-75% glandular tissue). No significant masses, calcifications, or other findings are seen in either breast. Post-operative findings in the left breast. The left MLO view was not acquired per the patient's request due to pain. IMPRESSION: INCOMPLETE: NEEDS ADDITIONAL IMAGING EVALUATION No mammographic evidence of malignancy. A targeted ultrasound of the inferior right breast region of pain is recommended and will immediately follow. Note: Left MLO view/tomosynthesis were not acquired per the patient's request. When clinically feasible, recommend completing mammographic evaluation. This exam was interpreted at Station ID: [id number]. NOTE: For mammograms, a report in lay terms will be sent to the patient. Approximately 15% of breast malignancies will not be visualized mammographically. In the management of a palpable breast mass, a negative mammogram must not discourage biopsy of a clinically suspicious lesion. Electronically Signed By: Abdirizak Contreras M.D. slc/:07/25/2022 13:29:15 ACR BI-RADS Category 0: Incomplete [id number]
== END ==
PROVIDERS: PCP Family Medicine; Referring Provider Family Medicine; Visit Provider Family Medicine
DX: N64.4 Mastodynia (principal); Z78.0 Asymptomatic menopausal state; C50.919 Malignant neoplasm of unspecified site of unspecified female breast; Z13.820 Encounter for screening for osteoporosis; R92.8 Other abnormal and inconclusive findings on diagnostic imaging of breast; Z90.710 Acquired absence of both cervix and uterus
CPT/HCPCS: 76642; 77066; 77080; G0279

== ENCOUNTER → 2022-07-28 12:39 | Outpatient (CLI) | payer MEDICARE, OTHER, SELFPAY ==
--- NOTE | 2022-07-28 | DI.ECHO.S_ITS ---
[facility] +---------+ : : [address] : : : : [place] : : : : [place], : : : : [place] [id number] : : : : Phone: [phone] Echocardiogram Report + + :Name: JULY WOLF Study Date: 07/28/2022 Height: 62 in : :[facility] ReadingLocation: Weight: 230 lb : : Gender: Female BSA: 2.0 m2 : :: 1940 Age: 82 yrs BP: 123/96 mmHg: :Reason For Study: Atrial fibrillation : :Ordering Physician: KASSANDRA, : :RANDALL Cardozo Performed By: Yovanny Sanchez : :Referring: RANDALL CANNON : + + Interpretation Summary Atrial fibrillation with controlled ventricular response Hypertensive during exam The left ventricular cavity is small. There is mild-moderate concentric left ventricular hypertrophy. The left ventricle is hyperdynamic. The ejection fraction is estimated to be 70-75%. Diastolic function could not be accurately assessed due to atrial fibrillation. The left atrium is mildly dilated. There is an anterior echo-free space consistent with a fat pad. No significant valvular disease No changes compared to 11/30/2020 Procedure: A two-dimensional transthoracic echocardiogram with color flow and Doppler was performed. The study quality was technically difficult. Comparison is made with the echocardiogram of 11/30/2020. Atrial fibrillation with controlled ventricular response Hypertensive during exam. Left Ventricle: The left ventricular cavity is small. There is mild-moderate concentric left ventricular hypertrophy. The echo findings are consistent with mild dynamic left ventricular intracavitary obstruction. The left ventricle is hyperdynamic. The ejection fraction is estimated to be 70-75%. There are no focal wall motion abnormalities. Diastolic function could not be accurately assessed due to atrial fibrillation. Right Ventricle: The right ventricle is normal in size and function. Atria: The left atrium is mildly dilated. Right atrial size is normal. The interatrial septum grossly appears intact with no obvious evidence for an atrial septal defect. Mitral Valve: There is mild mitral annular calcification. There is no mitral regurgitation noted. Aortic Valve: The aortic valve is mildly calcified. The calculated aortic valve area is 1.7 cm2. The aortic valve mean gradient is 9 mmHg. No aortic regurgitation is present. Tricuspid Valve: The tricuspid valve is normal in structure and function. No tricuspid regurgitation. Pulmonary artery pressures cannot be estimated because of the lack of a measurable TR jet velocity. Pulmonic Valve: The pulmonic valve is not well visualized. Great Vessels: The aortic root is normal size. The IVC is of normal diameter and collapses greater than 50% with a sniff. This suggests a low right atrial pressure of 3 mm Hg. Pericardium/ Pleura There is no pericardial effusion. There is an anterior echo-free space consistent with a fat pad. There is no pleural effusion. MMode/2D Measurements & Calculations LVIDd: 3.8 cm LVOT diam: 2.0 cm LVIDs: 2.8 cm Ao root diam: 3.0 cm IVSd: 1.4 cm LVPWd: 1.3 cm LV rivers. diameter/BSA (cm/m^2): 1.9 LV sys. diameter/BSA (cm/m^2): 1.4 FS: 26.3 % LA dimension: 3.8 cm RA long axis: 5.4 cm LA A2 area: 21.7 cm2 LA A4 area: 23.0 cm2 LA length (vol): 5.7 cm LA vol: 74.6 ml LA vol index: 36.8 ml/m2 TAPSE_phl: 1.8 cm Doppler Measurements & Calculations Ao V2 max: 203.0 cm/sec LVOT Max Sdueep: 114.0 cm/sec Ao V2 mean: 147.0 cm/sec LV V1 max P.2 mmHg Ao V2 VTI: 29.8 cm LV V1 VTI: 15.7 cm Ao max P.0 mmHg Ao mean P.5 mmHg ALESSIA(I,D): 1.7 cm2 SV(LVOT): 49.3 ml ALESSIA(V,D): 1.8 cm2 ALESSIA indexed to BSA (cm^2/m^2): 0.82 sev ratio: 0.53 AV VR_phl: 0.56 ALESSIA(VTI)/BSA_phl: 0.81 Reading Physician:JALEN
== END ==
PROVIDERS: PCP Family Medicine; Referring Provider Family Medicine; Visit Provider Family Medicine
DX: I65.23 Occlusion and stenosis of bilateral carotid arteries (principal); I48.91 Unspecified atrial fibrillation
CPT/HCPCS: 93306

== ENCOUNTER → 2022-08-05 13:10 | Outpatient (CLI) | payer MEDICARE, OTHER, SELFPAY ==
--- NOTE | 2022-08-05 | DI.MRI.S_ITS ---
BREAST MRI OF BOTH BREASTS: 08/05/2022 CLINICAL: MRIbilat. Abnormal Mammogram. PROCEDURE: MR BREAST BI WO/W CON INDICATIONS: BILATERAL CAROTID STENOSIS/AFIB TECHNIQUE: The patient was placed prone in a dedicated breast imaging coil. Precontrast axial STIR and 3D FLASH without fat saturation sequences were obtained. Both before and after bolus injection of contrast, sequential 1-minute axial 3D FLASH with fat saturation sequences for 3 time points, with subtraction images and maximum intensity projections (MIP's) generated. Delayed sagittal FLASH images with fat saturation were also obtained. CONTRAST: 20 cc Prohance. Computer-aided detection, including computer algorithm analysis of MRI image data for lesion detection and characterization, pharmacokinetic analysis, with further physician review for interpretation, was performed. COMPARISON: [facility], CT, CT SUN, 06/07/2018, 14:10. [facility], US, US BREAST RT LIMITED, 07/25/2022, 13:42. [facility], MG, MM DIAGNOSTIC MAMMO BI, 07/25/2022, 12:29. [facility], , MM DIAGNOSTIC MAMMO BI, 05/20/2021, 9:44. [facility], MG, MM SCREENING MAMMO BI, 05/01/2020, 10:18. FINDINGS: Image quality: Excellent. There is mild background parenchymal enhancement. Right breast: Upper outer quadrant 10 o'clock region middle depth mass measuring at 1.6 x 1.4 x 1.1 cm, ( and ). Kinetic analysis demonstrates fast initial phase and washout delayed phase. No mass seen in the inferior breast in the region of the scar marker on prior mammogram. There is right breast skin thickening. There is edema signal in the medial and inferior right breast. Left breast: Lateral breast middle depth inverted tissue due to prior lumpectomy. There is masslike enhancement along the scar measuring 1.2 x 0.8 x 0.6 cm, ( and ). Kinetic analysis demonstrates slow initial phase and persistent delayed phase. There is susceptibility artifact in the left breast. Miscellaneous: No enlarged right axillary nodes. There is a prominent left retropectoral node, (). This is not seen on CT chest 06/07/2018. IMPRESSION: INCOMPLETE: NEEDS ADDITIONAL IMAGING EVALUATION 1. Right breast: 10 o'clock region middle depth mass measuring 1.6 cm with suspicious kinetics. -Recommend targeted ultrasound for further evaluation. 2. Right breast: Skin thickening and edema signal in the lateral and inferior breast. No additional lesion is identified. This could be related to edema. 3. Left breast: Lateral breast middle depth masslike enhancement at the inverted tissue associated with prior lumpectomy. -Recommend targeted ultrasound for further evaluation. 4. No enlarged right axillary nodes. 5. Prominent left retropectoral node. -CT of the chest with IV contrast may be helpful for further evaluation for this node. PET/CT could also be considered if high suspicion for metastatic disease. BIRADS 0. Recommend targeted right and left breast ultrasound. Consider CT of the chest with IV contrast. COMMENT: The imaging literature indicates that a negative contrast breast MRI examination has a high sensitivity and a moderate specificity for detecting and excluding invasive carcinomas to a detection threshold of 3-5 mm; nonetheless, appropriate clinical and mammographic follow-up are recommended. MRI is not sensitive for detecting DCIS (ductal carcinoma in situ) and may not detect large invasive neoplasms that show only minimal enhancement such as mucinous carcinoma. If there are suspicious calcifications or clinically worrisome palpable masses, then biopsy should still be considered. Invasive neoplasms can be hidden by co-existent and benign enhancement caused by mastitis, hormone therapy effects, radiation therapy, , and recent biopsy or surgery. False positive examinations can occur in a number of circumstances, including breasts that have recently been subject to invasive procedures and those that contain atypical ductal hyperplasia, hormonally stimulated glandular tissue, fat necrosis, or radial scars. Dictated by: Abdirizak Contreras M.D. on 08/06/2022 at 11:11 This exam was interpreted at Station ID: [id number]. Electronically Signed By: Abdirizak Contreras M.D. slc/:08/06/2022 12:27:41 letter sent: Additional Imaging Needed ACR BI-RADS Category 0: Incomplete 3340F
--- NOTE | 2022-08-05 | DI.US.S_ITS ---
PROCEDURE: US CAROTID DOPPLER BI INDICATIONS: BILATERAL CAROTID STENOSIS/AFIB TECHNIQUE: Color and pulse Doppler interrogation was performed of both carotid systems, with image documentation and velocity measurements. COMPARISON: [facility], , US CAROTID, 12/09/2004, 8:19. FINDINGS: Stenosis calculations are based on SRU (Society of Radiologists in Ultrasound) criteria. Right side: Brachial blood pressure: 118/66 mm Hg. Common carotid artery peak systolic velocity: 189 cm/sec. Internal carotid artery peak systolic velocity: 87 cm/sec. Internal carotid artery end diastolic velocity: 84 cm/sec. External carotid artery peak systolic velocity: 163 cm/sec. ICA/CCA peak systolic ratio: 0.8 . Ramirez scale imaging description: Density calcified plaques at the bifurcation. The common carotid artery has increased velocity but demonstrates normal caliber on grayscale and Doppler ultrasound. Percent internal carotid artery stenosis: Less than 50%. Vertebral artery: Flow direction is antegrade. Left side: Brachial blood pressure: 128/61 mm Hg. Common carotid artery peak systolic velocity: 127 cm/sec. Internal carotid artery peak systolic velocity: Not well seen. Internal carotid artery end diastolic velocity: Not well seen. External carotid artery peak systolic velocity: Not well seen. ICA/CCA peak systolic ratio: n.a. Ramirez scale imaging description: Density calcified plaques in distal common carotid artery Percent internal carotid artery stenosis: n.a. Vertebral artery: Flow direction is antegrade. IMPRESSION: 1. Technically limited examination. The left internal and external carotid arteries are not visualized. Differential diagnoses occlusion versus technical difficulty. Recommend CT or MRI for further evaluation. 2. Less than 50% right internal carotid artery stenosis. 3. Calcified plaques at the carotid bifurcations bilaterally. 4. Antegrade vertebral artery flow bilaterally. Dictated by: Damon Dalton M.D. on 08/05/2022 at 17:20 Approved by: Damon Dalton M.D. on 08/06/2022 at 10:56
== END ==
PROVIDERS: PCP Family Medicine; Referring Provider Family Medicine; Visit Provider Family Medicine
DX: R92.8 Other abnormal and inconclusive findings on diagnostic imaging of breast (principal); I65.23 Occlusion and stenosis of bilateral carotid arteries; N63.11 Unspecified lump in the right breast, upper outer quadrant; N64.89 Other specified disorders of breast; R59.0 Localized enlarged lymph nodes
CPT/HCPCS: 77049; 93880; A9579

== ENCOUNTER 2022-08-14 10:42 | Outpatient (CLI) | payer MEDICARE, OTHER, SELFPAY ==
[2022-08-14] VITALS (13 sets, daily range): BP systolic 116–164; BP diastolic 53–84; PULSE 73–83; RESP 15–23; O2SAT 94–98
--- NOTE | 2022-08-14 10:44 | DI.RAD.S_ITS ---
PROCEDURE: PAIN L/S MED/LAT N RFA BILAT INDICATIONS: SPONDYLOSIS COMPARISON: None. FINDINGS: Fluoroscopic spot filming was performed to verify placement of spinal needles at the L2, L3, L4 level(s), as labeled on the films. Appropriate location(s) of the needle tip(s) was confirmed by injection of iodinated contrast. IMPRESSION: Intraprocedural fluoroscopy was provided for guidance and anatomical localization. Please see the procedure report for further details. Dictated by: Toñito Rausch M.D. on 08/14/2022 at 16:44 Approved by: Toñito Rausch M.D. on 08/14/2022 at 16:46
[2022-08-14] MEDS: LIDOCAINE 1% 20 ML 6 ML INJ (11:26)
[2022-08-14] MEDS: BUPIVACAINE 0.5% (PF) VIAL 10 ML INJ (11:27)
--- NOTE | 2022-08-14 12:02 | P.PCN_ITS ---
Date/Time/Diagnoses Date of procedure: 08/14/22 Time of procedure: 12:02 Pre-procedure diagnosis: 1. RECALCITRANT FACET ARTHROPATHY Post-procedure diagnosis: same Procedure Notes Procedure: 1. BILATERAL L2, L3, L4 MEDIAL BRANCH RADIOFREQUENCY NEUROTOMY Indications: Wendy is referred by Dr. Humphries for treatment of facet arthropathy. Physician: Layton Castro Total Fluoroscopy time (seconds): 32 Total sedation minutes: 40 Complications: none Procedure in detail & Post-procedure care: DESCRIPTION OF PROCEDURE Bilateral L2, L3, L4 medial branch radiofrequency neurotomy The patient is well known to this clinic having undergone previous facet injections with good but temporary relief. The patient has experienced appropriate, concordant relief with previous facet and median branch blocks but the patient's pain has been recalcitrant to further conservative measures. Therefore, based upon the patient's relief and persistent symptoms, the patient is considered an appropriate candidate for facet rhizotomy. All of the patient's questions regarding the risks versus benefits of the procedure, including, but not limited to, bleeding, infection, temporary as well as lasting nerve injury, paralysis, stroke, and , as well treatment alternatives were answered to satisfaction. After obtaining informed consent, denial of pertinent drug allergies, as well as being made aware of the potential risks of bleeding, infection, spinal cord trauma, paralysis, temporary and permanent nerve damage, seizure, stroke, and possible , the patient was brought to the fluoroscopy suite and positioned prone on the fluoroscopy table. The lumbar region was prepped with Betadine and covered with a fenestrated drape in the usual sterile fashion. Appropriate monitors applied including pulse oximeter, pulse, and blood pressure for regular monitoring throughout the procedure. After review of previous anaesthesic history and IV conscious sedation the patient was deemed safe to proceed with today's procedure with IV conscious sedation as ASA class II designation. Safety time-out was performed to confirm patient ID, procedure to be performed and site of procedure. IV sedation was accomplished with a combination of 4mg of Versed administered by the RN after DO order, titrated to patient comfort during the course of the procedure while the patient remained responsive to all verbal commands. After local infiltration using 1% lidocaine, under fluoroscopic guidance, a 10- cm RF insulated needle with a 10-mm active tip was positioned parallel to the junction of the right the superior articulating process where the L4 medial branch resides. Needle placement was confirmed with motor stimulation of .5v on the right which produced local stimulation without radicular component. The stimulation was then increased to 2v with, once again, only local multifidus stimulation without radicular component. The needle was then removed and the identical procedure was performed along the length of the right L3 medial branch with motor stimulation at .7v on the right. The identical procedure was once again performed along the length of the right L2 and medial branch with motor stimulation of .5v on the right. The medial branches were then anesthetised with 0.5% marcaine. This was then followed by two discreet lesions performed at 80 degrees Celsius for 90 seconds each. The identical procedures were repeated on the left. The patient tolerated the procedure well without signs or symptoms of complications prior to transfer to the recovery area continued monitoring without incident. The patient was then transferred to the recovery area where they were observed for an appropriate period of time after the injection. The patient reported a VAS score of 9 prior to the procedure and a post-procedure VAS of 0. POST OP INSTRUCTIONS The patient was provided a Pain Log to continue to record the patient's response to the target-specific procedure prior to the patient's follow-up visit with the referring physician. Additionally, specific post-injection care instructions and a contact number to our office were provided if concerns arise regarding possible complications associated with the procedure are suspected.
== END 2022-08-14 12:21 | disposition home or self-care (01) ==
LOC: RAD 10:43
PROVIDERS: PCP Family Medicine; Referring Provider Physical Medicine & Rehabilitation; Visit Provider Physical Medicine & Rehabilitation
DX: M47.816 Spondylosis without myelopathy or radiculopathy, lumbar region (principal)
CPT/HCPCS: 64635; 64636; 99152; 99153; J2250

== ENCOUNTER → 2022-09-01 08:06 | Outpatient (CLI) | payer MEDICARE, OTHER, SELFPAY ==
--- NOTE | 2022-09-01 | DI.MRI.S_ITS ---
PROCEDURE: MR ANGIO NECK W CON INDICATIONS: CAROTID STENOSIS TECHNIQUE: Axial and sagittal TruFISP through the neck. Coronal dynamic MRA after the administration of contrast in the arterial and venous phases, with rotating 3-dimensional maximum intensity projection (MIP) reformats constructed from subtraction images. COMPARISON: [facility], MR, ANGIO NECK WITH CONTRAST, 07/31/2015, 20:33. FINDINGS: Image quality: Excellent. Carotid system: Great vessels demonstrate a conventional anatomy as they arise from the aortic arch. The origins of the common carotid arteries appear normal. Common carotid artery are tortuous in course but widely patent. Bilateral ICA widely patent. The internal carotid arteries are widely patent up to the [place]. Posterior circulation: The origins of the vertebral arteries are unremarkable. Left vertebral artery is focally stenotic in the mid foraminal segment. There is right vertebral artery dominance. Vertebral arteries join to form a normal appearing basilar artery. Miscellaneous: Subclavian arteries are patent throughout. Pre-contrast images through the neck demonstrate no soft tissue abnormalities. IMPRESSION: 1. Moderate focal stenosis in the mid left vertebral artery. Right vertebral artery dominance. 2. Both proximal ICA widely patent. Any quantitative measurements of stenosis were performed using NASCET criteria. Approved by: Saurabh Elizondo M.D. on 09/01/2022 at 10:28
--- NOTE | 2022-09-01 08:08 | DI.US.S_ITS ---
LIMITED ULTRASOUND OF RIGHT BREAST: 09/01/2022 CLINICAL: Abnormal MRI. Comparison is made to exams dated: 08/05/2022 breast MRI, 07/25/2022 ultrasound, 07/25/2022 mammogram, 05/20/2021 mammogram, and 05/01/2020 mammogram - [facility]. Color flow, real-time, and continuous wave Doppler ultrasound of the right breast 6 o'clock and 10 o'clock regions were performed. Hypoechoic area at 6:00 is ill-defined and less conspicuous. This measures 3.6 x 1.5 x 1 cm. (Previously 2.8 x 2.6 x 1.1 cm on US 07/25/2022). No enhancement in this region on prior MR. No hyperemia. Skin thickening in this region is less prominent. No mass is identified in the 10:00 region of the enhancing mass seen on MRI. IMPRESSION: SUSPICIOUS OF MALIGNANCY No mass is identified in the 10:00 region of the enhancing mass seen on MRI. -A MRI guided biopsy is recommended. Inferior right breast hypoechoic area is less prominent. This most likely represents edema. -Recommend continued clinical surveillance. Exam findings were discussed with the patient. This exam was interpreted at Station ID: [id number]. Electronically Signed By: Abdirizak Contreras M.D. [facility] [place]:09/02/2022 11:49:39 letter sent: Biopsy Required Ultrasound BI-RADS: 4b Moderate suspicion of malignancy
--- NOTE | 2022-09-01 08:08 | DI.US.S_ITS ---
LIMITED ULTRASOUND OF LEFT BREAST AND AXILLA: 09/01/2022 CLINICAL: Abnormal MRI. Comparison is made to exams dated: 08/05/2022 breast MRI, 07/25/2022 mammogram, 05/20/2021 mammogram, 05/01/2020 mammogram, and 02/17/2019 mammogram - [facility]. Color flow and real-time ultrasound of the left breast axilla were performed. Ramirez scale images of the real-time examination were reviewed. No significant abnormalities were seen sonographically in the left breast at the lateral lumpectomy scar or the left axilla. IMPRESSION: SUSPICIOUS OF MALIGNANCY No mass is identified with ultrasound at the lateral left breast lumpectomy scar in the region of non-mass enhancement. -Recommend MRI guided biopsy. This biopsy is difficult given it's superficial location and location at the prior scar. (However, recommend MRI guided biopsy of the right breast enhancing mass first). -If focal thickening is seen clinically, skin biopsy could be attempted. No enlarged left axillary lymph nodes. -CT of the chest should be considered for prominent retropectoral node seen on MRI. Exam findings were discussed with the patient. This exam was interpreted at Station ID: [id number]. Electronically Signed By: Abdirizak Contreras M.D. [facility]/:09/02/2022 12:00:12 letter sent: Biopsy Required Ultrasound BI-RADS: 4a Low suspicion for malignancy
== END ==
PROVIDERS: PCP Family Medicine; Referring Provider Family Medicine; Visit Provider Family Medicine
DX: I65.22 Occlusion and stenosis of left carotid artery (principal); I65.01 Occlusion and stenosis of right vertebral artery; R92.8 Other abnormal and inconclusive findings on diagnostic imaging of breast
CPT/HCPCS: 70548; 76642

== ENCOUNTER → 2022-09-29 15:44 | Outpatient (ROUT) | payer MEDICARE, OTHER, SELFPAY ==
[2022-09-29 15:55] LABS: Appearance Urine UA CLEAR; Bilirubin Urine UA NEGATIVE (NEGATIVE); Color Urine UA YELLOW; Glucose Urine UA NEGATIVE (Negative); Ketones Urine UA NEGATIVE (NEGATIVE); Leukocyte Esterase Urine UA TRACE (NEGATIVE); Nitrite Urine UA NEGATIVE (Negative); Occult Blood Urine UA NEGATIVE (Negative); Protein Urine UA NEGATIVE (Negative); Urobilinogen Urine UA 0.2 E.U./dL (0.2)
[2022-09-29 16:37] LABS: Bacteria Urine Few (2-10); Culture Indicated Urine Specimen Cultured; RBC Urine 1-5/HPF (0-5/HPF); Squamous Epithelial Cell Urine 1-5 /HPF (0-5/HPF); Transitional Epi Cells Urine 1-5/HPF (0-5/HPF); WBC Urine 5-10/HPF (0-5/HPF)
[2022-09-29 17:15] LABS: Microalbumi Creatinin Ratio Ur 8.9 ug/mg CR (<30); Microalbumin Urine Random 0.9 mg/dL (0-1.6)
== END ==
PROVIDERS: PCP Family Medicine; Visit Provider Internal Medicine Nephrology
DX: N18.32 Chronic kidney disease, stage 3b (principal)
CPT/HCPCS: 81001; 82043; 82570; 87077; 87086

== ENCOUNTER → 2022-11-12 10:15 | Outpatient (CLI) | payer MEDICARE, OTHER, SELFPAY ==
[2022-11-12 10:45] LABS: BUN Creatinine Ratio 21.2 (6-22); Blood Urea Nitrogen 29 mg/dL (7-17); Estimated Glomerular Filt Rate 38 mL/min (>60)
== END ==
PROVIDERS: PCP Family Medicine; Referring Provider Surgery; Visit Provider Surgery
DX: C50.411 Malignant neoplasm of upper-outer quadrant of right female breast (principal); Z17.0 Estrogen receptor positive status [ER+]
CPT/HCPCS: 36415; 82565; 84520

== ENCOUNTER → 2022-11-13 13:11 | Outpatient (CLI) | payer MEDICARE, OTHER, SELFPAY ==
--- NOTE | 2022-11-13 13:17 | DI.CT.S_ITS ---
PROCEDURE: CT CHEST W CON INDICATIONS: follow up lymphnode seen on MRI TECHNIQUE: After the administration of intravenous contrast, 5 mm thick sections acquired from the pulmonary apices to the posterior costophrenic angles. 1 mm axial lung, 5 mm thick coronal and sagittal reformats and 7 mm axial MIP were acquired. For radiation dose reduction, the following was used: automated exposure control, adjustment of mA and/or kV according to patient size. COMPARISON: [facility], CT, CHEST/ABD/PEL WITH CONTRAST, 03/21/2014, 11:16. [facility], MR, MR BREAST BI WO/W CON, 08/05/2022, 14:15. FINDINGS: Image quality: Good Lungs and pleura: Scattered scarring and atelectasis. No dense consolidation. No pleural effusions. Some areas of suspected scarring are slightly nodular appearing, for example at the right apex (3/37) Mediastinum, heart, and esophagus: Nonspecific mild distal esophageal wall thickening. There mitral annular and coronary calcifications. Prominent anterior mediastinal soft tissue likely thymic remnant. No pathologic adenopathy identified by size criteria. Chest wall and thyroid: As seen on breast MRI, there is a prominent retropectoral node on the left (2/7), that is not enlarged by size criteria and might be slightly smaller than prior imaging. Axillary clips are present. Breast findings are better seen on dedicated breast MRI. No actionable thyroid nodule identified. 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 Bones: Scattered degenerative changes without acute or suspicious osseous abnormality. IMPRESSION: Left retroperitoneal lymph node might be slightly smaller head is not enlarged by CT size criteria. Breast findings are better seen on dedicated MRI. No definite metastases, however some areas of probable scarring in the lungs are slightly nodular appearing, for example the right apex. Attention on routine follow-up restaging. Other findings as above. Dictated by: Sonny Valverde M.D. on 11/13/2022 at 15:02 Approved by: Sonny Valverde M.D. on 11/13/2022 at 15:13
== END ==
PROVIDERS: PCP Family Medicine; Referring Provider Surgery; Visit Provider Surgery
DX: R59.0 Localized enlarged lymph nodes (principal); I25.10 Atherosclerotic heart disease of native coronary artery without angina pectoris
CPT/HCPCS: 71260; Q9967

== ENCOUNTER 2022-12-10 07:29 | Day surgery (SDC) | payer MEDICARE, OTHER, SELFPAY ==
--- NOTE | 2022-12-09 18:30 | PM.PREOP ---
Pre-operative Note COVID-19 COVID-19 status: Not tested Criteria for continued procedure: Expected advancement of disease process, Possibility delay results in more complex future surgery or treatment, Increased loss of function, Continuing or worsening of significant or severe pain, Delay expected to result in less-positive ultimate med/surg outcome and Non-surgical alternatives not available or appropriate per current SOC Interval Note History & Physical reviewed/Exam performed by Physician: Yes Changes to H&P: No H&P completed within 30 days and has changed as indicated here:: Fasting glucose is 165. Preoperative screening shows atrial fibrillation of unknown to the patient. She has been on Eliquis but this was stopped 4 days ago in anticipation of this surgery as well as breast surgery to occur in 1 week. EKG is ordered to review.
--- NOTE | 2022-12-09 18:31 | PM.OP.1 ---
Operative Date/Time/Diagnoses Date of procedure: 12/10/22 Time of procedure: 08:45 Procedure & Clinicians Procedure: Preoperative diagnosis: 1. 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 Insulin-dependent diabetes 3. Breast cancer with need for surgery within 30 days 4. Hypertension 5. Anticoagulation on Eliquis, unable to stop for significant time, probable cause was history of atrial fibrillation 6. History of splenectomy 2014 7. Primary fibromyalgia syndrome 8. Renal insufficiency 9. Migraine 10. Mild diabetic retinopathy without need for treatment 11. Pseudophakia Postoperative diagnosis: Status post entropion repair with horizontal lid shortening and punctal surgery. 3. Anesthesia local with monitored standby. 4. Blood loss: Less than 3 cc 5. Specimen: None Operative summary: Patient presents with excessive irritation and tearing from exposure of the cornea to misdirected eyelashes due to spastic lower lid entropion. Due to her anticoagulation status quicker sutures were placed in the office June 27, 2022. She is on Eliquis which is high risk for surgical bleeding and therefore this procedure required and no incision. However, if failed within 2-3 weeks and her lid again is inverted in word and her lashes are irritating the cornea. She has had to tape the lid in order to keep it from irritating her eye since that time. She is due to have breast cancer surgery 1 week from now and needs a way for her eyelid to be non irritating during the recovery from that surgery. Approval to stop Eliquis was given for 4 days prior to this procedure and is she was scheduled to not resume until after the allotted time after her breast surgery on December 16, 2022. She is noted to be in atrial fibrillation but on preoperative screening here. EKG is ordered to document this and her primary care physician will be notified after to see if any further workup is needed prior to her next surgery. Her primary physicians will monitor her cardiovascular risk after surgery. A minimum of 3 days after procedure is the usual time to stop Eliquis treatment being 7 days without anticoagulation. However, we are doing only 1 eyelid and I will try did minimize the amount of bleeding with cautery and will concur with any anticoagulation needed by her primary care. The patient has failed conservative measures including lubrication and antibiotic ointment and desires surgery to improve these symptoms. The patient is taken to the operating room and positioned. Monitoring is performed. Local anesthetic consisting 1% xylocaine with epinephrine and 1 cc of hyulronidase is placed through the inferior lid both medial inferior and laterally. 5 cc is given. Good anesthesia was obtained. Attention was placed to the left lower lid. Attention was placed to the lower lid below the punctum. Cautery was used to make a subciliary incision for 2 cm extending to the lateral canthus.. Blood dissection was used to expose to the orbital septum and the lower lid retractors which were dehisced. There was scar tissue from previous surgery therefore after careful dissection 5.0 Vicryl suture was then placed through 3 interrupted 5 0 Vicryl sutures were used to reattached the lower lid retractors to the tarsal plate. The desired rotation outward from the globe was obtained. Attention was placed to the lateral canthus. A 15. Cool Containers-Blue blade was used to make an incision for 1 cm. The periosteum was exposed. Cautery was used as needed. The inferior canthal tendon was lysed with scissors. A tarsal strip was formed with clearance of the anterior and posterior lamella and any exposed lashes. Minimal shortening was performed. The strip was then transected with 5.0 Mersilene type suture which was placed double-armed through the periosteum and tied with multiple knots at the orbital rim. The outer tarsus and lid was then closed with 6 0 interrupted sutures. The subciliary incision was also closed with running 6 0 Vicryl suture. Interrupted sutures were placed through the lateral tarsal edge. 2% xylocaine with epinephrine was infiltrated at the end of the procedure for hemostasis as well as comfort. There was minimal bleeding. The patient returned to the recovery room in good condition. Due to multiple allergies erythromycin ophthalmic ointment will be placed on her sutures. Sutures will be removed in the office if needed in approximately 10 days. Same procedure as scheduled: Yes Click Yes if Unassisted: Yes
[2022-12-10 08:23] VITALS: BP 136/69; PULSE 116; RESP 16; TEMP 36.3; O2SAT 96; BMI 41.1
[2022-12-10] MEDS: LACTATED RINGERS 1,000 ML 42 ML IV (08:39)
[2022-12-10] MEDS: PROPARACAINE 0.5% OPHTH SOL 2 DROPS EYE-LEFT (08:52)
[2022-12-10] MEDS: HYALURONIDASE 150 UNIT/ML VIAL (AMPHADASE) INJ (09:04)
[2022-12-10] MEDS: LIDOCAINE 2% W/EPI INJ 4 ML INJ (09:04)
[2022-12-10] MEDS: ERYTHROMYCIN OPHTH 1 GM OINT 1 APPLIC EYE-LEFT (09:24)
[2022-12-10 10:20] VITALS: BP 146/86; PULSE 108; RESP 16; TEMP 36.3; O2SAT 98
--- NOTE | 2022-12-10 10:45 | SUR.PHASEII ---
Dr Ballard reviews her own discharge instructions.
== END 2022-12-10 10:20 | disposition home or self-care (01) ==
LOC: OR 07:30
PROVIDERS: PCP Family Medicine; Referring Provider Ophthalmology; Visit Provider Ophthalmology
PROC: (CPT 67917; principal; 2022-12-10 08:45)
DX: H02.105 Unspecified ectropion of left lower eyelid (principal); E11.9 Type 2 diabetes mellitus without complications; Z79.4 Long term (current) use of insulin; I10 Essential (primary) hypertension; I48.91 Unspecified atrial fibrillation; G47.33 Obstructive sleep apnea (adult) (pediatric); E66.9 Obesity, unspecified; K21.9 Gastro-esophageal reflux disease without esophagitis
CPT/HCPCS: 67917; 93005; 93010; J2250; J2704; J3470

== ENCOUNTER → 2022-12-16 07:24 | Outpatient (CLI) | payer MEDICARE, OTHER, SELFPAY ==
--- NOTE | 2022-12-16 07:26 | DI.NM.S_ITS ---
PROCEDURE: PA SENTINEL NODE INJECT ONLY RADIOPHARMACEUTICAL: 0.5-1.0 mCi Millipore filtered Tc-99m sulfur colloid. INDICATIONS: double mastectomy COMPARISON: [facility], MR, MR BREAST BIOSPY WITH DEVICE PLACEMENT, 10/29/2022, 9:58. [facility], BREAST RT LIMITED, 09/01/2022, 9:10. [facility], BREAST LT LIMITED, 09/01/2022, 8:54. [facility], CT, CT CHEST W CON, 11/13/2022, 13:36. [place], [place], PA PET CT FUSION WHOLE BODY, 12/03/2022, 10:23. PROCEDURE: The area around the nipple was prepped and draped in a sterile fashion. Tc-99m sulfur colloid was injected intra-dermally around the outer edge of the areola in the right breast. No image was obtained. IMPRESSION: Administration of radiotracer into the right breast periareolar region for intra-operative sentinel lymph node localization. Dictated by: Damon Dalton M.D. on 12/16/2022 at 9:44 Approved by: Damon Dalton M.D. on 12/16/2022 at 9:44
== END ==
PROVIDERS: PCP Family Medicine; Referring Provider Surgery; Visit Provider Surgery
DX: C50.411 Malignant neoplasm of upper-outer quadrant of right female breast (principal); Z17.0 Estrogen receptor positive status [ER+]
CPT/HCPCS: 38792; A9541

== ENCOUNTER 2022-12-16 15:10 | Observation (INO) | payer MEDICARE, OTHER, SELFPAY ==
[2022-12-12 13:10] VITALS: BMI 40.6
[2022-12-16] VITALS (9 sets, daily range): BP systolic 112–176; BP diastolic 57–102; PULSE 77–92; RESP 14–21; TEMP 36.2–37.2; O2SAT 92–98; BMI 40.6
--- NOTE | 2022-12-16 | PATH_ITS ---
[facility] Accession Number: [id number] No. of containers..03 Tissue . 01 Material submitted: . PART A: breast - LEFT BREAST TISSUE-LONG STITCH MIXON AXILLARY TAIL, SHORT STITCH SUPERIOR PART B: lymph node - RIGHT SENTINEL NOD PART C: breast - RIGHT BREAST TISSUE LONG STITCH LATERAL . 01 Diagnosis: A. Left Breast, Simple Mastectomy: Localized parenchymal scar/hyalinized fibrosis, consistent with treatment effect. 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 Benign nipple and skin. Negative for invasive malignancy. . B. [place] Lymph Node, Right, Biopsy: Single lymph node negative for malignancy (0/1). . C. 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 - Histologic grade: Healy score is 5 out of 9 possible (glandular differentiation=2, nuclear pleomorphism=2, mitotic rate=1). - Tumor size: 1.3 cm, as measured from the glass slide. - Tumor focality: Single focus of invasive carcinoma. - Tumor site: Upper outer quadrant; 10 o'clock position. - Ductal carcinoma in situ: Present (solid with intermediate grade nuclei). - Extent of ductal carcinoma in situ (DCIS): Estimated at 0.5 cm (negative for extensive intraductal component). - Lobualar carcinoma in situ: Present. - Tumor extent: Not applicable (skin uninvolved, nipple and skeletal muscle absent). - Lymphovascular invasion: Not identified. - Microcalcifications: Present in nonneoplastic tissue. - Margins of resection: Negative for invasive carcinoma (closest margin anterior-superior at 0.2 cm). - Margin status for DCIS: Negative (greater than 0.2 cm). - pTNM classification (AJCC 8th Edition): pT1c, pN0. - Breast biomarker testing. Estrogen and progesterone receptor positive and HER2 equivocal by immunohistochemistry (see complete parameters in comment section). [facility] 12/24/2022 1503 Local . 01 Comment: Predictive marker immunohistochemical studies are performed on block C3 with the invasive carcinoma showing the following results: . Estrogen receptor (SP1): Positive (greater than 95%, strong intensity). Progesterone receptor (1E2): Positive (90%, strong intensity). Her2 (4B5): Equivocal (2+), (see note below). . Note: HER2 by FISH analysis will be performed at [facility] ([place], [place]), with the results reported as an addendum. . Internal controls for ER and ME are positive. Cold ischemic time is not provided. The scoring criteria for breast biomarkers by immunohistochemistry is based on the ASCO/CAP guidelines (Diallo AC et al, J Clin Oncol: 2017May 04;36(20):7500-1429 and Lety HAQ et al, Arch Pathol Lab Med: 2009;134(6):907-22). Deparaffinized sections of formalin fixed tissue (along with appropriate positive controls) are incubated with the above antibody(s). Using the automated Letha stainer, tissue is incubated with the designated antibody which is then localized by a non-biotin, dual polymer detection system. The external controls are reviewed for appropriate reactivity and found to be adequate. Results on the target cell population are indicated above. These tests have not been validated on decalcified tissue. This test was developed and its performance characteristics determined by [employer]. It has not been cleared or approved by the U.S. Food and Drug Administration. The FDA has determined that such clearance or approval is not necessary. This test is used for clinical purposes. It should not be regarded as investigational or for research. . 01 Electronically signed: . Portia Hirsch MD, Pathologist NPI- [id number] . 01 Gross description: . A. Received in formalin labeled left breast tissue, long suture-axillary tail, short suture-superior, is a 320-gram simple mastectomy specimen which is oriented as stated above. The specimen measures 15.0 cm ML by 10.5 cm SI by 6.0 cm AP. There is an attached 15.0 x 6.5 cm pink-lin skin ellipse with a centrally located 4.5 x 3.7 cm areola and slightly inverted nipple. Located at the lateral aspect of the areola, is a 3.5 cm in length linear area which is inverted and indurated. The surgical margins are inked as follows: deep- black; anterosuperior - orange; anteroinferior - red; lateral - green, and medial - blue. . The specimen is serially sectioned proceeding from medial to lateral revealing a whitaker-white stellate mass located in the upper outer quadrant at the 1 to 2 o'clock position. The mass is underlying the previously described inverted and retracted skin. The mass measures 2.5 x 1.5 x 0.9 cm. The closest margin is the anterosuperior margin which is 0.2 cm away. The closest posterior margin is 1.6 cm. The mass is 5.0 cm from the nipple. The remainder of the tissue consists predominantly of yellow lobulated adipose tissue with streaks in denser areas of whitaker-white fibrous tissue (approximately 10-15%). There are no areas of nodularity or additional masses grossly identified. . Bus Inspector sections are submitted as follows: A1: Perpendicular sections of the nipple. A2: Tissue immediately medial to the mass. A3: Medial most aspect of the mass. A4: Center of the mass. A5: Closest posterior margin. A6: Lateral most aspect of the mass and closest anterior margin. A7: Tissue immediately lateral to the mass. A8: Bus Inspector upper outer quadrant. A9: Bus Inspector upper inner quadrant. A10: Bus Inspector lower inner quadrant. A11: Bus Inspector lower outer quadrant. A12: Subareolar tissue. A13: Inverted and retracted skin. B. Received in formalin labeled right sentinel node, is a 1.3 x 0.8 x 0.4 cm portion of yellow-lin fatty tissue. Within the tissue is a possible blue-dyed lymph node measuring 0.6 x 0.5 x 0.3 cm. The entire specimen is submitted as received in B1. C. Received in formalin labeled right breast tissue, long suture-lateral is a 523-gram simple mastectomy specimen which has been oriented as stated above. The specimen measures 15.0 cm ML by 14.5 cm SI by 6.5 cm AP. There is an attached pink-lin skin ellipse which measures 19.0 x 9.5 cm. There is an inferiorly situated 4.0 x 3.5 cm areola. Located at the nipple position is a 2.5 cm linear apparent well-healed scar. The surgical margins are inked as follows: deep - black; anterosuperior - orange; anteroinferior - red; medial - blue; and lateral - green. . The specimen is serially sectioned proceeding from lateral to medial revealing an ill-defined whitaker-white mass identified in the upper outer quadrant at the 10 o'clock position. The mass measures 1.7 x 1.5 x 1.0 cm. The closest margin to the mass is the anterior margin which is 0.7 cm away. The closest posterior margin is 4.5 cm away, and the closest skin is 1.4 cm away. The mass is 6.0 cm from the nipple bed. The remainder of the breast consists predominantly of yellow lobulated adipose tissue with streaks and denser areas of whitaker-white fibrous tissue (approximately 15-20%). There are no areas of nodularity or additional masses grossly identified. . Bus Inspector sections are submitted as follows: C1: Nipple scar and nipple bed. C2: Tissue immediately lateral to the mass. C3: Lateral half of the mass and closest skin. C4: Closest posterior margin. C5: Medial half of the mass and closest anterior margin. C6: Tissue immediately medial to the mass. C7: Bus Inspector upper outer quadrant. C8: Bus Inspector lower outer quadrant. C9: Bus Inspector lower inner quadrant. C10: Bus Inspector upper inner quadrant. C11: Subareolar tissue. ([id number]) /MRV 12/17/2022 1724 Local . 01 Microscopic: . Immunostains to e-cadherin and beta-catenin are performed on block A6 and are found to be negative in the areas of in situ proliferation, confirming the suspected morphologic suspicion of a lobular carcinoma in situ as opposed to ductal. . Immunostains to cytokeratin 5/6 and estrogen receptor are also performed on block C11 and show the intraductal proliferation to be negative for cytokeratin 5/6 and uniformly positive for estrogen receptor, supporting the morphologic interpretation of ductal carcinoma in situ as opposed to a nonneoplastic proliferation. . 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 P63 and myosin are negative around the cell nests confirming invasion, and p63 is also negative on the solid nests of tumor cells, ruling against recurrence of an adenosquamous carcinoma. These findings taken together with the morphologic features support the provided interpretation of an invasive ductal carcinoma. . 01 Pathologist provided ICD-10: C50.919 . 01 CPT . 306122, [id number], 163485, [id number], [id number], [id number], [id number], [id number] Specimen Comment: A courtesy copy of this report has been sent to [facility] Performed at: 01 [facility] [address] [address], [place], [place] [id number] MD Byron Knapp MD Phone: [phone]
[2022-12-16] MEDS: LACTATED RINGERS 1,000 ML 42 ML IV ×2 (10:30→12:40)
--- NOTE | 2022-12-16 11:32 | PM.HP.1 ---
History of Present Illness History of Present Illness Chief complaint: Mastectomy Narrative: Mrs. Wilkinson is an 82-year-old woman who is struggling with chronic pain she also has diabetes and hypertension and takes Eliquis for paroxysmal AFib.? She is been diagnosed now with her 3rd breast cancer.? The 1st time was in 2004 and she underwent a left lumpectomy and sentinel lymph node biopsy.? More recently she had a lumpectomy in 2018 and at that time she explains that the nipple had to be removed with the specimen.? In 2019 she had radiation to the left breast.? She is here today because she has had an ultrasound of the left breast, and axilla and an MRI of the breast (10 o'clock region middle depth mass measuring at 1.6x 1.4 x 1.1 cm), then? 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 Clinical stage T1cN0 Patient was discussed at tumor board a PET scan was ordered to evaluate an enlarged lymph node seen on CT none of these were active interestingly the cancer itself was not active on the PET scan either. Patient understands the plans her questions were answered she wants to proceed Patient History Medical History (Updated 12/10/22 @ 08:11 by Percy Chow RN) Afib Anemia Arthritis Breast cancer, left Cataract (lens) fragments in eye following cataract surgery, bilateral Cervical cancer Cervical post-laminectomy syndrome Degenerative joint disease (DJD) of hip Depression Diabetes Facet arthropathy, lumbar Fibromyalgia Frozen shoulder GERD (gastroesophageal reflux disease) Gout Hiatal hernia HTN (hypertension) Hyperlipidemia Iron deficiency anemia Left nephrolithiasis Lower urinary tract symptoms (LUTS) Morbid obesity Neutrophilia EDGARDO (obstructive sleep apnea) Osteoarthritis Postmenopausal atrophic vaginitis PVD (peripheral vascular disease) Renal cyst Renal cyst, left Scoliosis Seborrheic keratosis Skin cancer Surgical History (Updated 12/12/22 @ 13:14 by Alessandra Shleby RN) H/O: hysterectomy History of appendectomy History of arthroscopy of left shoulder History of back surgery History of bladder suspension procedure History of breast biopsy History of delivery History of esophagogastroduodenoscopy (EGD) History of lumbar laminectomy History of repair of rotator cuff History of splenectomy History of total knee arthroplasty Hx of colonoscopy with polypectomy Hx of eye surgery (12/10/22) Status post left breast lumpectomy Family & Social History Family History Grandfather Diabetes mellitus Grandmother Diabetes mellitus Father Gout Hypertension Mother Hypertension Kidney stones Urinary tract infection Social History: household members spouse Tobacco & Substance use: Smoking Status Former smoker alcohol intake never Substance Use Type does not use Meds Home Medications and Allergies Home Medications Medication Instructions Recorded Confirmed Type Cod Liver Oil (#COD LIVER OIL) 1 cap PO Q DAY ##0 01/25/13 12/16/22 History cholecalciferol (vitamin D3) 50 1,000 iu PO QDAY ##0 01/25/13 12/16/22 History mcg (2,000 unit) capsule (Vitamin D3) [AREDS] 1 tab PO Q DAY ##0 01/02/17 11/11/22 History potassium chloride 10 mEq 20 meq PO DAILY 05/18/18 12/16/22 History tablet,extended release insulin aspart U-100 100 unit/mL 25 unit SUBCUT BID 03/23/19 12/16/22 History (3 mL) subcutaneous pen (Novolog FlexPen U-100 Insulin aspart) allopurinol 100 mg tablet 100 mg PO DAILY 07/04/20 12/16/22 History albuterol sulfate 90 mcg/actuation 2 puff inhalation Q6H PRN 01/02/21 12/16/22 History aerosol inhaler (ProAir HFA) Shortness Of Breath apixaban 5 mg tablet (Eliquis) 5 mg PO BID 01/02/21 12/16/22 History rosuvastatin 40 mg tablet 40 mg PO DAILY 01/02/21 12/16/22 History vitamin B complex-folic acid 1 1 tab PO DAILY 01/02/21 12/16/22 History mg-vit C 100 mg-biotin 300 mcg tablet lisinopril 20 1 tab PO DAILY 02/04/22 12/16/22 History mg-hydrochlorothiazide 25 mg tablet furosemide 20 mg tablet 10 mg PO DAILY 06/26/22 12/16/22 History insulin glargine 100 unit/mL (3 25 unit SUBCUT BEDTIME 11/07/22 12/16/22 History mL) subcutaneous pen (Lantus Solostar U-100 Insulin) oxybutynin chloride 5 mg tablet 5 mg PO DAILY 11/07/22 12/16/22 History Ocuvite See Rx Instructions .Route .COMPLEX 12/10/22 12/16/22 History Allergies Allergy/AdvReac Type Severity Reaction Status Date / Time neomycin Allergy Mild HIVES Verified 12/16/22 07:38 [From Neosporin ([id number])] polymyxin B Allergy Mild HIVES Verified 12/16/22 07:38 [From Neosporin ([id number])] sulfamethoxazole Allergy Verified 12/16/22 07:38 [From Septra] trimethoprim [From Septra] Allergy Verified 12/16/22 07:38 codeine AdvReac Intermediate VOMITING Verified 12/16/22 07:38 gemfibrozil AdvReac Intermediate VOMITING Verified 12/16/22 07:38 cefuroxime [From Ceftin] AdvReac Mild Nausea Verified 12/16/22 09:40 gabapentin AdvReac Mild Nausea Verified 12/16/22 09:40 loratadine AdvReac Mild HYPERTENSIO Verified 12/16/22 07:38 N adhesive [ADHESIVE] AdvReac Unknown Rash, Verified 12/16/22 07:38 blisters Exam Vital Signs (past 8 hours): - 12/16/22 07:48 Temperature 97.2 F L Pulse Rate 85 Respiratory Rate 18 Blood Pressure 159/66 H Pulse Oximetry 96 Oxygen Delivery Method Room Air Oxygen Delivery Method Room Air Const General: cooperative, healthy appearing and comfortable Resp Effort & Inspection: normal respiratory effort and able to speak in complete sentences Cardio Pulses: radial pulses present Assessment & Plan Assessment & Plan narrative: Discussed risks benefits, alternatives and Ms. Wilkinson understands. She would like to proceed. Time Spent With Patient Critical Care time: I spent a total of [] minutes of critical care time on this patient's care today; this time is exclusive of procedural time.
[2022-12-16] MEDS: CEFAZOLIN 2 GM/100 ML PREMIX 100 ML IV (11:33)
--- NOTE | 2022-12-16 13:15 | SUR.OPER ---
Supine on padded OR bed, head on pillow, left arm secured on padded arm boards at <90 degrees abduction and rolled washcloth under wrist, right arm in control of surgeon and resting on sterile draped arm boards. Gel pad under heels. Legs uncrossed, safety belt at thigh, tape over blanket over lower legs.
[2022-12-16] MEDS: BUPIVACAINE 0.5% W/ EPI (PF) 30 ML VIAL 60 ML INJ (14:17)
[2022-12-16] MEDS: METHYLENE BLUE 50 MG/10 ML VIAL 25 MG INJ (14:31)
[2022-12-16] MEDS: ONDANSETRON 4 MG/2 ML INJ IV (15:18)
[2022-12-16] MEDS: fentaNYL 100 MCG/2 ML INJ IV (15:18)
[2022-12-16] MEDS: OXYCODONE IR 5 MG TABLET PO (15:22)
--- NOTE | 2022-12-16 15:36 | PM.OP.1 ---
Procedure & Clinicians Procedure: Right mastectomy and right sentinel lymph node biopsy Left prophylactic mastectomy Same procedure as scheduled: Yes Indications: Right breast cancer Surgeon: Felisha Mariano Product Development Ecologist: Yvon Goodrich Anesthesia Type: General Operative Notes Procedure in detail: Patient was taken to the operating room placed supine on the operating room table. Time-out was performed. General endotracheal anesthesia was induced. The breasts were prepped and draped in the usual sterile fashion. The patient had had an injection of radiotracer in the rest right breast previously. Methylene blue was injected in addition. The left breast was addressed while we were giving time for the methylene blue to take effect. And we 1st proceeded with the prophylactic left-sided mastectomy. An incision was made through the skin using a 10 blade scalpel and carried down to the subcutaneous tissue. Next electrocautery was used to isolate the breast capsule. The dissection was made superiorly most of the way to the clavicle and inferiorly to the inframammary fold the axillary tail and the lateral portion of the breast was from the axillary tissue. The breast was then removed from the pectoralis fascia the specimen was oriented and sent for pathology. We next turned our attention to the right breast. Skin incision was made and carried down. The capsule of the breast was followed again superiorly to the clavicle and inferiorly to the inframammary fold. Medially and then removed along with pectoralis fascia to retain the axillary tail of the breast and the axillary tissue. We then used the gamma probe to examine the axillary tissue. Dissection was done in the direction of the maximal signal. Using tonsil dissector we were able to identify a decent sized a blue lymph node that also had an increased radiotracer signal. The 12nd count was 1361. And the background 12nd count was 251. The nearby tissue was examined and there was an adjacent lymph node that had a lower radial signal and also was not blue. I did not see any further blue lymph nodes and no areas of increased radiotracer signal anywhere around there. Therefore this 1 blue node was called our sentinel lymph node and sent for pathology. We then released the axillary tail from the underlying axillary tissue and marked the right breast to oriented. And sent it for pathology as well. 2 DINO 10 flat drains were placed under the mastectomy sites. And secured to the skin using 2-0 nylon suture. The skin was closed using underlying 3-0 Vicryl interrupted sutures and a running 4-0 Monocryl to close the skin. Patient tolerated the procedure well and went in good condition to the postoperative care unit. Prior to closing the incisions all of the skin flaps were identified and inspected for hemostasis and everything looked dry and well. Complications: none Post-operative Condition: stable Disposition: Acute Care
[2022-12-16 15:44] LABS: COVID19 -Nasal RAPID Negative (Negative)
[2022-12-16] MEDS: OXYCODONE/ACETAMINOPHEN 5/325 TABLET 2 TAB PO ×2 (17:19→22:59)
[2022-12-16] MEDS: INSULIN LISPRO 100 UNIT/ML 3ML VIAL 25 UNIT SUBCUT (17:22)
[2022-12-16] MEDS: INSULIN GLARGINE 100 UNIT/ML 3ML PEN 25 UNIT SUBCUT (21:59)
[2022-12-17] VITALS (12 sets, daily range): BP systolic 104–126; BP diastolic 46–75; PULSE 72–82; RESP 17–20; TEMP 36.1–37.1; O2SAT 91–99
--- NOTE | 2022-12-17 02:51 | PC.NURSE ---
Patient refused POC blood glucose check, has own device which read 131 at HS. POX decreased to 88% on room air, Oxygen reapplied at 3L NC.
[2022-12-17] MEDS: OXYCODONE/ACETAMINOPHEN 5/325 TABLET 2 TAB PO ×2 (06:59→21:11)
[2022-12-17] MEDS: ONDANSETRON 4 MG ODT SL (08:15)
--- NOTE | 2022-12-17 08:58 | PM.PN.1 ---
Subjective Subjective Date Patient Seen: 12/17/22 Time Patient Seen: 08:58 Interval history: Wendy reports nausea and dizziness. She has not had much of an appetite. Exam Vital Signs (past 8 hours): - 12/17/22 04:00 12/17/22 04:05 12/17/22 06:55 Temperature 97.2 F L Pulse Rate 74 Respiratory Rate 17 Blood Pressure 124/55 L Pulse Oximetry 96 96 97 Oxygen Delivery Method Nasal Cannula Nasal Cannula Oxygen Flow Rate 3 2 2 12/17/22 07:00 12/17/22 07:05 12/17/22 08:10 Temperature 98.4 F Pulse Rate 79 Respiratory Rate 17 Blood Pressure 122/62 Pulse Oximetry 91 95 96 Oxygen Delivery Method Room Air Nasal Cannula Oxygen Flow Rate 0 1 3 Oxygen Delivery Method Nasal Cannula Oxygen Flow Rate 3 Narrative Exam Narrative: Breast binder in place Both drains have bloody fluid Objective Labs Labs: Laboratory Results - last 24 hr 12/16/22 15:26 SARS-CoV-2 (PCR) Negative PFSH Medical History (Updated 12/17/22 @ 08:59 by Yvon Goodrich MD) Afib Anemia Arthritis Breast cancer, left Cataract (lens) fragments in eye following cataract surgery, bilateral Cervical cancer Cervical post-laminectomy syndrome Degenerative joint disease (DJD) of hip Depression Diabetes Facet arthropathy, lumbar Fibromyalgia Frozen shoulder GERD (gastroesophageal reflux disease) Gout Hiatal hernia HTN (hypertension) Hyperlipidemia Iron deficiency anemia Left nephrolithiasis Lower urinary tract symptoms (LUTS) Morbid obesity Neutrophilia EDGARDO (obstructive sleep apnea) Osteoarthritis Postmenopausal atrophic vaginitis PVD (peripheral vascular disease) Renal cyst Renal cyst, left Scoliosis Seborrheic keratosis Skin cancer Surgical History (Updated 12/12/22 @ 13:14 by Alessandra Shelby RN) H/O: hysterectomy History of appendectomy History of arthroscopy of left shoulder History of back surgery History of bladder suspension procedure History of breast biopsy History of delivery History of esophagogastroduodenoscopy (EGD) History of lumbar laminectomy History of repair of rotator cuff History of splenectomy History of total knee arthroplasty Hx of colonoscopy with polypectomy Hx of eye surgery (12/10/22) Status post left breast lumpectomy Family History Grandfather Diabetes mellitus Grandmother Diabetes mellitus Father Gout Hypertension Mother Hypertension Kidney stones Urinary tract infection Social History marital status: number of children: 4 household members: spouse occupational status: previously employed Smoking Status: Former smoker Tobacco: How many years used: 5 alcohol intake: never caffeine: Yes Assessment & Plan Assessment and plan (1) Postoperative examination: Status: Acute Plan Plan for another night in the hospital due to her nausea Drain teaching We will transition her back onto her home medications and insulin regimen as her nausea resolves and she starts eating again Time Spent With Patient Critical Care time: I spent a total of [] minutes of critical care time on this patient's care today; this time is exclusive of procedural time.
[2022-12-17] MEDS: allopurinoL 100 MG TABLET PO (09:53)
[2022-12-17] MEDS: POTASSIUM CHLORIDE 10 MEQ TAB 20 MEQ PO (09:54)
[2022-12-17] MEDS: FUROSEMIDE 20 MG TABLET 10 MG PO (09:55)
[2022-12-17] MEDS: hydroCHLOROthiazide 25 MG TABLET PO (09:57)
[2022-12-17] MEDS: CHOLECALCIFEROL (VITAMIN D3) 1,000 UNIT TABLET 1000 UNIT PO (09:58)
[2022-12-17] MEDS: OXYBUTYNIN 5 MG TABLET PO (09:58)
[2022-12-17] MEDS: DOCUSATE 100 MG CAPSULE PO ×2 (09:59→21:10)
[2022-12-17] MEDS: ENOXAPARIN 40 MG/0.4 ML SYRINGE SUBCUT (10:07)
--- NOTE | 2022-12-17 11:57 | CM.DANOTE ---
DCP: Case received, EMR reviewed and met with patient. Introduced self and role. Was able to obtain information regarding patient's baseline activity status prior to her surgery. DCP assessment completed with information currently available. Patient is an 82 year old female who admitted yesterday morning to the care of the surgical team. PCP: Dr. Humphries. Payer: confirmed: Medicare/[employer]. Patient came to the hospital for a surgical procedure. She had a right mastectomy and right sentinel lymph node biopsy. Patient had left prophylactic mastectomy. Patient has history of breast cancer, now her third breast cancer. Met with patient in her room. She was sitting up in bed, alert and oriented, pleasant. She resides here in [place] with her spouse, Rickie. She has 23 grand children. At her baseline, she is independent. P: DCP to continue to follow. Plan is home when stable, according to surgeon notes, most likely tomorrow. Grisel Valera RN/Gasoline Engine Inspector Discharge Planning/Care Management CM Discharge Assessment Start: 12/17/22 11:56 Freq: Status: Active Protocol: Document 12/17/22 11:56 (Rec: 12/17/22 11:57 [id number]) Discharge Planning Assessment Assigned Miller Apprentice Grisel Valera RN/Gasoline Engine Inspector Advance Directives? Yes Advance Directives on File Yes: 08/06 Adv Dir History Provided By Patient,Medical Record Prior Living Arrangements House Household Members spouse Type of transporation used prior to Drives own vehicle admit Independent with ADL's Yes Is patient alert and oriented? Yes Caregiver for Another No Barriers to Discharge No Discharge Plan Home Transportation Arrangement Spouse Referrals Initiated None needed Whiteboard Updated in Patient Room with Yes name and ext. # of Miller Apprentice Review Status In Process Next Review Type Continued Stay Review Pre-Anesthesia Assessment Start: 12/12/22 13:10 Freq: Status: Active Protocol: Document 12/12/22 13:10 CAB (Rec: 12/12/22 13:18 CAB [id number]) Pre-Anesthesia Assessment Patient Information Reviewed Via Chart Review Primary Care Provider Matthew Humphries Seen Specialist in Last 12 Months Yes Specialist Seen General surgeon,Opthamologist/ Change Management Administrator Primary Language [employer] Psychologist Required No Height 5 ft 2 in Weight 222 lb Body Mass Index (BMI) 40.6 Hx Anesthesia Reactions No Hx Family Anesthesia Reaction No Hx Malignant Hyperthermia No Hx Blood Transfusion Reaction No Anesthesia Review Requested No Solvent Mixer No alcohol intake never Smoking Status Former smoker how long ago did patient quit smoking Patient is completely paralyzed or No completely immobile Mental Status Oriented to own ability Is patient on oxygen? No Hx Sleep Apnea Yes CPAP/BIPAP use not prescribed Currently Taking a Beta [place] No Anti-Coagulant Therapy Yes: Eliquis-unknown what instructions given to patient Hx Pacemaker/ICD No Pacemaker Rep Required? No Urinary Catheter Present No Hx Urinary Self Catheterization No Diabetes Yes Patient No Lactating No Presence of External or Internal Medical Yes: Eloy knee replacement, eloy Devices eye IOLs Received a COVID vaccine? Yes Marital Status Lives With spouse Patient Discharge Plan Description Return Home Advance Directives? Yes Advance Directives on File Yes: 08/06 Adv Dir Power of Flexible Shaft Winder Yes Power of Flexible Shaft Winder Name Rickie Wilkinson Power of Flexible Shaft Winder
[2022-12-17] MEDS: OXYCODONE/ACETAMINOPHEN 5/325 TABLET 1 TAB PO (14:11)
--- NOTE | 2022-12-17 18:54 | PC.NURSE ---
1630 Provided DINO drain care education to patient and her , Lisa. Provided printed information and hands on demonstration, step by step, for Lisa following the printed information for emptying the drains. Answered all questions and patient and Lisa stated they feel prepared for caring for drains at home.
[2022-12-17] MEDS: ATORVASTATIN 20 MG TABLET 80 MG PO (21:10)
[2022-12-17] MEDS: INSULIN GLARGINE 100 UNIT/ML 3ML PEN 25 UNIT SUBCUT (21:18)
[2022-12-18] MEDS: OXYCODONE/ACETAMINOPHEN 5/325 TABLET 2 TAB PO ×3 (03:36→22:48)
[2022-12-18 04:00] VITALS: BP 110/53; PULSE 73; RESP 17; TEMP 36.7; O2SAT 97
[2022-12-18 07:35] VITALS: BP 111/48; PULSE 73; RESP 73; TEMP 37.1; O2SAT 97
[2022-12-18 08:23] VITALS: BP 111/48; PULSE 73
[2022-12-18] MEDS: INSULIN LISPRO 100 UNIT/ML 3ML VIAL 25 UNIT SUBCUT ×2 (08:58→17:48)
[2022-12-18] MEDS: ENOXAPARIN 40 MG/0.4 ML SYRINGE SUBCUT (09:01)
[2022-12-18] MEDS: allopurinoL 100 MG TABLET PO (09:01)
[2022-12-18] MEDS: POTASSIUM CHLORIDE 10 MEQ TAB 20 MEQ PO (09:01)
[2022-12-18] MEDS: DOCUSATE 100 MG CAPSULE PO ×2 (09:02→21:52)
[2022-12-18] MEDS: OXYBUTYNIN 5 MG TABLET PO (09:02)
[2022-12-18] MEDS: CHOLECALCIFEROL (VITAMIN D3) 1,000 UNIT TABLET 1000 UNIT PO (09:02)
[2022-12-18] MEDS: FUROSEMIDE 20 MG TABLET 10 MG PO (09:02)
[2022-12-18] MEDS: OXYCODONE/ACETAMINOPHEN 5/325 TABLET 1 TAB PO (10:54)
[2022-12-18 12:15] VITALS: BP 113/51; PULSE 71; RESP 23; TEMP 36.4; O2SAT 95
--- NOTE | 2022-12-18 13:18 | PM.PN.1 ---
Subjective Subjective Date Patient Seen: 12/18/22 Time Patient Seen: 13:18 Interval history: Wendy is better today but she reports she still needs some IV pain medicine. She is still somewhat wobbly when she stands up. Exam Vital Signs (past 8 hours): - 12/18/22 08:23 12/18/22 07:35 Temperature 98.7 F Pulse Rate 73 73 Respiratory Rate 73 H Blood Pressure 111/48 L 111/48 L Pulse Oximetry 97 Oxygen Flow Rate 1 Oxygen Delivery Method Nasal Cannula Oxygen Flow Rate 1 Narrative Exam Narrative: Both drains are becoming more serous than sanguinous Bilateral dressings remain in place with no evidence bleeding PFS Medical History (Updated 12/17/22 @ 08:59 by Yvon Goodrich MD) Afib Anemia Arthritis Breast cancer, left Cataract (lens) fragments in eye following cataract surgery, bilateral Cervical cancer Cervical post-laminectomy syndrome Degenerative joint disease (DJD) of hip Depression Diabetes Facet arthropathy, lumbar Fibromyalgia Frozen shoulder GERD (gastroesophageal reflux disease) Gout Hiatal hernia HTN (hypertension) Hyperlipidemia Iron deficiency anemia Left nephrolithiasis Lower urinary tract symptoms (LUTS) Morbid obesity Neutrophilia EDGARDO (obstructive sleep apnea) Osteoarthritis Postmenopausal atrophic vaginitis PVD (peripheral vascular disease) Renal cyst Renal cyst, left Scoliosis Seborrheic keratosis Skin cancer Surgical History (Updated 12/12/22 @ 13:14 by Alessandra Shelby RN) H/O: hysterectomy History of appendectomy History of arthroscopy of left shoulder History of back surgery History of bladder suspension procedure History of breast biopsy History of delivery History of esophagogastroduodenoscopy (EGD) History of lumbar laminectomy History of repair of rotator cuff History of splenectomy History of total knee arthroplasty Hx of colonoscopy with polypectomy Hx of eye surgery (12/10/22) Status post left breast lumpectomy Family History Grandfather Diabetes mellitus Grandmother Diabetes mellitus Father Gout Hypertension Mother Hypertension Kidney stones Urinary tract infection Social History marital status: number of children: 4 household members: spouse occupational status: previously employed Smoking Status: Former smoker Tobacco: How many years used: 5 alcohol intake: never caffeine: Yes Assessment & Plan Assessment and plan (1) Postoperative examination: Status: Acute Plan Wendy feels that she would benefit from 1 more night in the hospital. Most likely she will be able to discharge home tomorrow. Dr. Mariano will return tomorrow. Time Spent With Patient Critical Care time: I spent a total of [] minutes of critical care time on this patient's care today; this time is exclusive of procedural time.
[2022-12-18 16:30] VITALS: BP 101/57; PULSE 74; RESP 20; TEMP 37.4; O2SAT 94
[2022-12-18 20:46] VITALS: BP 105/72; PULSE 102; RESP 17; TEMP 36.8; O2SAT 93
[2022-12-18] MEDS: ATORVASTATIN 20 MG TABLET 80 MG PO (21:52)
[2022-12-19 00:24] VITALS: BP 112/70; PULSE 92; RESP 18; TEMP 36.6; O2SAT 93
[2022-12-19 06:13] VITALS: BP 105/70; PULSE 110; RESP 20; TEMP 36.6; O2SAT 93
[2022-12-19] MEDS: OXYCODONE/ACETAMINOPHEN 5/325 TABLET 1 TAB PO ×2 (06:16→11:15)
[2022-12-19 07:45] VITALS: BP 166/49; PULSE 118; RESP 20; TEMP 37.3; O2SAT 94
--- NOTE | 2022-12-19 10:14 | P.DS_ITS ---
History of Present Illness History of Present Illness Chief complaint: Mastectomy Narrative: Mrs. Wilkinson is an 82-year-old woman who is struggling with chronic pain she also has diabetes and hypertension and takes Eliquis for paroxysmal AFib.? She is been diagnosed now with her 3rd breast cancer.? The 1st time was in 2004 and she underwent a left lumpectomy and sentinel lymph node biopsy.? More recently she had a lumpectomy in 2018 and at that time she explains that the nipple had to be removed with the specimen.? In 2019 she had radiation to the left breast.? She is here today because she has had an ultrasound of the left breast, and axilla and an MRI of the breast (10 o'clock region middle depth mass measuring at 1.6x 1.4 x 1.1 cm), then? 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 Clinical stage T1cN0 Patient was discussed at tumor board a PET scan was ordered to evaluate an enlarged lymph node seen on CT none of these were active interestingly the cancer itself was not active on the PET scan either. Patient understands the plans her questions were answered she wants to proceed Discharge Providers Provider Date of admission: 12/16/22 15:10 Discharge Date: 12/19/22 Primary care physician: Matthew Humphries MD Discharge provider: Felisha Mariano MD Exam Vital Signs (past 8 hours): - 12/19/22 06:13 Temperature 97.9 F Pulse Rate 110 H Respiratory Rate 20 Blood Pressure 105/70 Pulse Oximetry 93 Oxygen Delivery Method Nasal Cannula Oxygen Flow Rate 0 Narrative Exam Narrative: Wendy is awake alert oriented and in no acute distress. She is seated in a chair. Her wounds are clean dry and intact the DINO drains are in place with serosanguineous discharge. [facility] Medical History (Updated 12/17/22 @ 08:59 by Yvon Goodrich MD) Afib Anemia Arthritis Breast cancer, left Cataract (lens) fragments in eye following cataract surgery, bilateral Cervical cancer Cervical post-laminectomy syndrome Degenerative joint disease (DJD) of hip Depression Diabetes Facet arthropathy, lumbar Fibromyalgia Frozen shoulder GERD (gastroesophageal reflux disease) Gout Hiatal hernia HTN (hypertension) Hyperlipidemia Iron deficiency anemia Left nephrolithiasis Lower urinary tract symptoms (LUTS) Morbid obesity Neutrophilia EDGARDO (obstructive sleep apnea) Osteoarthritis Postmenopausal atrophic vaginitis PVD (peripheral vascular disease) Renal cyst Renal cyst, left Scoliosis Seborrheic keratosis Skin cancer Surgical History (Updated 12/12/22 @ 13:14 by Alessandra Shelby RN) H/O: hysterectomy History of appendectomy History of arthroscopy of left shoulder History of back surgery History of bladder suspension procedure History of breast biopsy History of delivery History of esophagogastroduodenoscopy (EGD) History of lumbar laminectomy History of repair of rotator cuff History of splenectomy History of total knee arthroplasty Hx of colonoscopy with polypectomy Hx of eye surgery (12/10/22) Status post left breast lumpectomy Family History Grandfather Diabetes mellitus Grandmother Diabetes mellitus Father Gout Hypertension Mother Hypertension Kidney stones Urinary tract infection Social History marital status: number of children: 4 household members: spouse occupational status: previously employed Smoking Status: Former smoker Tobacco: How many years used: 5 alcohol intake: never caffeine: Yes Discharge Assessment & Plan Assessment and Plan Assessment: Doing well postop day 3 status post bilateral mastectomy and right sentinel lymph node biopsy. She stayed overnight in the hospital because of nausea and difficulty with pain control receiving IV pain medications but on today her 3rd postoperative day she is tolerating her oral pain medications a regular diet and ambulating on her own. She feels ready for discharge today. Drain teaching for home. Follow-up in 7-10 days. Discharge Plan Discharge Plan Patient Disposition: Home Discharge orders & Medications Prescriptions: New oxycodone-acetaminophen 5-325 mg Tablet 1 tab PO Q6HR PRN (Reason: Pain, Moderate (4-6)) Qty: 14 0RF docusate sodium 100 mg Capsule 100 mg PO BID Qty: 30 0RF Rx Instructions: Take while taking Percocet for pain to prevent constipation Continued cholecalciferol (vitamin D3) [Vitamin D3] 2,000 UNIT capsule 1,000 iu PO QDAY Qty: 0 Cod Liver Oil (#COD LIVER OIL) 1 cap PO Q DAY Qty: 0 [AREDS] 1 tab PO Q DAY Qty: 0 oxybutynin chloride 5 mg tablet 5 mg PO DAILY Ocuvite See Rx Instructions .ROUTE .COMPLEX Rx Instructions: eyes potassium chloride 10 mEq Tablet Extended Release 20 meq PO DAILY Novolog FlexPen U-100 Insulin 100 unit/mL insulin pen 25 unit subcut BID Label Comments: pt taking 20 units am 25 units pm lisinopril-hydrochlorothiazide 20-25 mg tablet 1 tab PO DAILY furosemide 20 mg tablet 10 mg PO DAILY insulin glargine [Lantus Solostar U-100 Insulin] 100 unit/mL (3 mL) insulin pen 25 unit SUBCUT BEDTIME allopurinol 100 mg tablet 100 mg PO DAILY albuterol sulfate [ProAir HFA] 90 mcg/actuation HFA aerosol inhaler 2 puff inhalation Q6H PRN (Reason: Shortness Of Breath) vit B complx-folic ac-C-biotin 1 mg-100 mg- 300 mcg tablet 1 tab PO DAILY rosuvastatin 40 mg tablet 40 mg PO DAILY Eliquis 5 mg tablet 5 mg PO BID Follow up/Referrals: Felisha Mariano MD [Physician] - (7-10 days for drain removal.) Matthew Humphries MD [Primary Care Provider] - Diet/Activity/Treatments Diet: Regular Visit Report/Discharge Packet Instructions: DI for Mastectomy Stand Alone Forms: Patient Portal/API, Stroke Signs & Symptoms Discharge Data Primary Care Provider: Matthew Humphries Attending Provider: Felisha Mariano
[2022-12-19] MEDS: lisinopriL 20 MG TABLET PO (10:24)
[2022-12-19] MEDS: ENOXAPARIN 40 MG/0.4 ML SYRINGE SUBCUT (10:24)
[2022-12-19] MEDS: POTASSIUM CHLORIDE 10 MEQ TAB 20 MEQ PO (10:25)
[2022-12-19] MEDS: hydroCHLOROthiazide 25 MG TABLET PO (10:25)
[2022-12-19] MEDS: CHOLECALCIFEROL (VITAMIN D3) 1,000 UNIT TABLET 1000 UNIT PO (10:25)
[2022-12-19] MEDS: allopurinoL 100 MG TABLET PO (10:25)
[2022-12-19] MEDS: FUROSEMIDE 20 MG TABLET 10 MG PO (10:26)
[2022-12-19] MEDS: DOCUSATE 100 MG CAPSULE PO (10:26)
[2022-12-19] MEDS: OXYBUTYNIN 5 MG TABLET PO (10:40)
[2022-12-19] MEDS: INSULIN LISPRO 100 UNIT/ML 3ML VIAL 25 UNIT SUBCUT (10:41)
== END 2022-12-19 13:20 | disposition home or self-care (01) ==
LOC: AC 12-17 13:29
PROVIDERS: Admitting Provider Surgery; PCP Family Medicine; Referring Provider Surgery; Visit Provider Surgery
PROC: 0HTV0ZZ Resection of Bilateral Breast, Open Approach (ICD-10-PCS; CPT 19303; principal; 2022-12-16 11:15)
DX: C50.911 Malignant neoplasm of unspecified site of right female breast (principal); Z40.01 Encounter for prophylactic removal of breast; Z17.0 Estrogen receptor positive status [ER+]; Z85.3 Personal history of malignant neoplasm of breast; E11.9 Type 2 diabetes mellitus without complications; I48.0 Paroxysmal atrial fibrillation; Z79.4 Long term (current) use of insulin; R11.0 Nausea; Z20.822 Contact with and (suspected) exposure to COVID-19; C50.411 Malignant neoplasm of upper-outer quadrant of right female breast
CPT/HCPCS: 19303; 38500; 38792; 82962; 87635; 94760; A9541; C9803; G0378; J0690; J1100; J1650; J1815; J1885; J2405; J3010; Q9968

== ENCOUNTER → 2023-01-06 11:09 | Outpatient (CLI) | payer MEDICARE, OTHER, SELFPAY ==
[2022-12-16 16:23] VITALS: BMI 40.6
== END ==
PROVIDERS: PCP Family Medicine; Visit Provider Surgery
DX: C50.919 Malignant neoplasm of unspecified site of unspecified female breast (principal); Z09 Encounter for follow-up examination after completed treatment for conditions other than malignant neoplasm
CPT/HCPCS: 87070; 87075; 87077; 87186; 87205

== ENCOUNTER → 2023-01-15 11:25 | Outpatient (CLI) | payer MEDICARE, OTHER, SELFPAY ==
[2022-12-16 16:23] VITALS: BMI 40.6
== END ==
PROVIDERS: PCP Family Medicine; Referring Provider Surgery; Visit Provider Surgery
DX: I48.91 Unspecified atrial fibrillation (principal); Z09 Encounter for follow-up examination after completed treatment for conditions other than malignant neoplasm
CPT/HCPCS: 93005; 93010

== ENCOUNTER → 2023-02-18 11:09 | Outpatient (CLI) | payer MEDICARE, OTHER, SELFPAY ==
[2022-12-16 16:23] VITALS: BMI 40.6
--- NOTE | 2023-02-18 11:12 | DI.MRI.S_ITS ---
PROCEDURE: MR LUMBAR SPINE WO CON INDICATIONS: Left lumbosacral pain status post fall August 2022 TECHNIQUE: Noncontrast sagittal T1 spin echo and T2 fast echo, sagittal STIR, and T2 fast spin echo through the lumbar spine. In cases with scoliosis, additional coronal T2 fast spin echo may be performed. COMPARISON: [facility], MR, MR LUMBAR SPINE WO CON, 02/10/2022, 10:16. FINDINGS: Image quality: Excellent. Alignment and Curvature: Posterior fusion at L4-5 is presen, with left L4 laminectomy.. There is grade 1 anterolisthesis measuring 8 mm of L5 on S1, unchanged. Trace retrolisthesis of T12 on L1, L1 on L2, L2 on L3, L3 on L4 are present. Right-sided scoliotic curvature is present. Bone Marrow: Marrow is of normal overall signal. No acute vertebral body compression fractures. Spinal Cord: Conus medullaris terminates at the L1 level. Visualized cord demonstrates normal signal and size. Paraspinous Soft Tissues: No paravertebral masses. Simple left renal cyst is present. Discs: Moderate to severe desiccation is present throughout the lumbar spine. T12-L1: Mild disc bulge with mild spinal stenosis. Mild bilateral foraminal narrowing with facet hypertrophy. Overall appearance is stable. L1-L2: Mild disc bulge with moderate spinal stenosis. There is moderate bilateral foraminal narrowing with facet and ligamentum flavum hypertrophy. Overall appearance is stable. L2-L3: Mild disc bulge with moderate spinal stenosis. Moderate bilateral foraminal narrowing with facet and ligamentum flavum hypertrophy. Overall appearance is stable. L3-L4: Mild disc bulge with severe spinal stenosis as well as canal compression. There is compression of the cauda quinine nerve roots. Severe right and moderate to severe left foraminal narrowing with facet and ligamentum flavum hypertrophy. There is compression of the exiting right L3 nerve root as well as slight compression of the exiting left L3 nerve root. Overall appearance is stable. L4-L5: Postsurgical changes are present. Mild spinal stenosis. Moderate bilateral foraminal narrowing with facet and ligamentum flavum hypertrophy. No nerve root compression. Overall appearance is stable. L5-S1: Mild disc bulge with mild spinal stenosis. Mild bilateral foraminal narrowing without nerve root compression. Overall appearance is stable. IMPRESSION: Postsurgical and degenerative changes, stable compared to prior exam. Spinal stenosis and foraminal narrowing remain most severe at L3-4 secondary to disc bulge with contributing effect of facet/ligamentum flavum arthropathy. Dictated by: Annetta Vogel M.D. on 02/18/2023 at 12:17 Approved by: Annetta Vogel M.D. on 02/18/2023 at 12:50
== END ==
PROVIDERS: PCP Family Medicine; Referring Provider Physical Medicine & Rehabilitation; Visit Provider Physical Medicine & Rehabilitation
DX: M43.17 Spondylolisthesis, lumbosacral region (principal); M47.816 Spondylosis without myelopathy or radiculopathy, lumbar region; M48.061 Spinal stenosis, lumbar region without neurogenic claudication; M51.36 Other intervertebral disc degeneration, lumbar region; Z98.1 Arthrodesis status
CPT/HCPCS: 72148

== ENCOUNTER → 2023-04-15 10:40 | Outpatient (CLI) | payer MEDICARE, OTHER, SELFPAY ==
[2022-12-16 16:23] VITALS: BMI 40.6
--- NOTE | 2023-04-15 | DI.RAD.S_ITS ---
PROCEDURE: XR CHEST 2V INDICATIONS: cough, dyspnea TECHNIQUE: 2 views of the chest were acquired. COMPARISON: [facility], CR, XR CHEST 2V, 11/15/2020, 14:30. FINDINGS: Surgical changes and devices: None. Lungs and pleura: Lungs are clear. No pleural effusions or pneumothorax. Mediastinum: Mediastinal contours are normal. Heart size is normal. Bones and chest wall: No suspicious bony abnormalities. Soft tissues appear unremarkable. IMPRESSION: No acute process. Dictated by: Jakob Genao M.D. on 04/15/2023 at 11:27 Transcribed by: GABRIELLE on 04/15/2023 at 11:28 Approved by: Jakob Genao M.D. on 04/15/2023 at 16:13
== END ==
PROVIDERS: PCP Family Medicine; Referring Provider Nurse Practitioner Family; Visit Provider Nurse Practitioner Family
DX: R49.8 Other voice and resonance disorders (principal); R05.9 Cough, unspecified; R06.00 Dyspnea, unspecified; R13.19 Other dysphagia; I48.20 Chronic atrial fibrillation, unspecified
CPT/HCPCS: 71046

== ENCOUNTER → 2023-05-18 09:11 | Outpatient (CLI) | payer MEDICARE, OTHER, SELFPAY ==
[2022-12-16 16:23] VITALS: BMI 40.6
--- NOTE | 2023-05-18 09:13 | DI.ECHO.S_ITS ---
[facility]---------+ [facility] +---------+ : : [address] : : : : [id number] : : : : Phone: [phone]+ Echocardiogram Report + + :Name: JULY WOLF Study Date: 05/18/2023 Height: 62 in : :[facility] ReadingLocation: Weight: 217 lb : : Gender: Female BSA: 2.0 m2 : :: 1940 Age: 83 yrs BP: 150/62 mmHg: :Reason For Study: Hypertension : :Ordering Physician: KASSANDRA, : :RANDALL Cardozo Performed By: Liz Pritchard : :Referring: RANDALL CANNON : + + Interpretation Summary The left ventricle is normal in size. The ejection fraction is estimated to be 65-70%. The right ventricle is normal size. The right ventricular systolic function is normal. Severe mitral annulus calcification extending into the mitral leaflets as well as calcification of chordae. Overall mitral leaflets were not well seen. There appears to be some restriction of mitral leaflets. The mean gradient across mitral valve about 4 mmHg. With pressure half-time, mitral valve area about 1.59 cm square suggestive of at least mild mitral stenosis. There is moderate aortic valve sclerosis. There is mild to moderately reduced leaflet mobility. The peak aortic velocity is 2.56 m/sec. The aortic valve mean gradient is 14 mmHg. ALESSIA(V,D): 1.3 cm2 sev ratio: 0.41 The peak aortic velocity on the previous exam was 2.03 m/sec. Overall mild to moderate aortic stenosis. Procedure: A two-dimensional transthoracic echocardiogram with color flow and Doppler was performed. The study quality was technically adequate. Comparison is made with the echocardiogram of 07/28/2022. The patient was in normal sinus rhythm during the exam. Left Ventricle: The left ventricle is normal in size. Proximal septal thickening is noted. There is no thrombus. The ejection fraction is estimated to be 65-70%. There are no focal wall motion abnormalities. MV E/A: 1.0 Med Peak E' Sudeep: 4.0 cm/sec E/E' med: 30.1. Right Ventricle: The right ventricle is normal size. The right ventricular systolic function is normal. Atria: The left atrium is mildly dilated. There has been no significant change since the previous study. Right atrial size is normal. There is no Doppler evidence for an interatrial shunt. Interatrial septal thickening is noted. Mitral Valve: Severe mitral annulus calcification extending into the mitral leaflets as well as calcification of chordae. Overall mitral leaflets were not well seen. There appears to be some restriction of mitral leaflets. The mean gradient across mitral valve about 4 mmHg. With pressure half-time, mitral valve area about 1.59 cm square suggestive of at least mild mitral stenosis. There is mild mitral stenosis. The mitral valve mean gradient is 4 mmHg. There is trace mitral regurgitation. Aortic Valve: The aortic valve is trileaflet. There is moderate aortic valve sclerosis. There is mild to moderately reduced leaflet mobility. There is mild aortic stenosis. The peak aortic velocity is 2.56 m/sec. The aortic valve mean gradient is 14 mmHg. The peak aortic velocity on the previous exam was 2.03 m/sec. There is trace aortic regurgitation. Tricuspid Valve: The tricuspid valve is normal. There is no tricuspid stenosis. There is trace tricuspid regurgitation. Pulmonary artery pressures cannot be estimated because of the lack of a measurable TR jet velocity. Pulmonic Valve: The pulmonic valve is normal in structure and function. There is no pulmonic valvular stenosis. There is trace pulmonic regurgitation. Great Vessels: The aortic root is normal size. The ascending aorta is normal in size. Aortic arch not well visualized. The pulmonary artery is normal size. The IVC is dilated (diameter is greater than 2.1 cm) yet it collapses greater than 50% with a sniff. This suggests a right atrial pressure of 8 mm Hg. Pericardium/ Pleura There is an anterior echo-free space consistent with a fat pad. There is no pleural effusion. MMode/2D Measurements & Calculations LVIDd: 4.8 cm LVOT diam: 1.9 cm LVIDs: 2.8 cm Ao root diam: 3.0 cm FS: 41.7 % asc Aorta Diam: 3.2 cm IVSd: 1.1 cm LVPWd: 1.4 cm LV rivers. diameter/BSA (cm/m^2): 2.4 LV sys. diameter/BSA (cm/m^2): 1.4 LA A2 area: 24.7 cm2 RA long axis: 5.4 cm LA A4 area: 18.6 cm2 RA area: 8.2 cm2 LA length (vol): 6.2 cm RA vol: 10.7 ml LA vol: 62.7 ml RA : 5.4 ml/m2 LA vol index: 31.7 ml/m2 RVD1 (basal): 3.2 cm LVLs ap4: 5.2 cm LVLd ap2: 6.7 cm TAPSE_phl: 1.7 cm LVLs ap2: 5.6 cm Doppler Measurements & Calculations Ao V2 max: 256.0 cm/sec LVOT Max Sudeep: 114.0 cm/sec Ao V2 mean: 176.0 cm/sec LV V1 max P.2 mmHg Ao max P.0 mmHg LV V1 VTI: 24.0 cm Ao mean P.0 mmHg ALESSAI(I,D): 1.2 cm2 Ao V2 VTI: 58.5 cm ALESSIA(V,D): 1.3 cm2 sev ratio: 0.41 ALESSIA indexed to BSA (cm^2/m^2): 0.59 MV E max sudeep: 119.0 cm/sec PA V2 max: 94.8 cm/sec MV A max sudeep: 114.0 cm/sec PA V2 mean: 69.1 cm/sec MV E/A: 1.0 PA mean P.0 mmHg Med Peak E' Sudeep: 4.0 cm/sec PA pr(Accel): 32.6 mmHg E/E' med: 30.1 Lat Peak E' Sudeep: 4.2 cm/sec E/E' lat: 28.6 E/e' average: 29.3 MV dec time: 0.47 sec MVA(VTI): 1.3 cm2 MV V2 mean: 94.8 cm/sec SV(LVOT): 68.0 ml MV mean P.1 mmHg MV V2 VTI: 50.8 cm AV VR_phl: 0.45 MV P1/2t-pr_phl: 138.0 msec ALESSIA(VTI)/BSA_phl: 0.59 Reading Physician:04:57 PM
== END ==
PROVIDERS: PCP Family Medicine; Referring Provider Family Medicine; Visit Provider Family Medicine
DX: I13.10 Hypertensive heart and chronic kidney disease without heart failure, with stage 1 through stage 4 chronic kidney disease, or unspecified chronic kidney disease (principal); I08.0 Rheumatic disorders of both mitral and aortic valves
CPT/HCPCS: 93306

== ENCOUNTER → 2023-07-23 11:20 | Outpatient (CLI) | payer MEDICARE, OTHER, SELFPAY ==
[2022-12-16 16:23] VITALS: BMI 40.6
--- NOTE | 2023-07-23 | DI.US.S_ITS ---
PROCEDURE: US CAROTID DOPPLER BI INDICATIONS: STENOSIS OF CAROTID ARTERY / HTN TECHNIQUE: Color and pulse Doppler interrogation was performed of both carotid systems, with image documentation and velocity measurements. COMPARISON: [facility], [place], US CAROTID DOPPLER BI, 08/05/2022, 15:56. FINDINGS: Stenosis calculations are based on SRU (Society of Radiologists in Ultrasound) criteria. Right side: Brachial blood pressure: 111/53 mm Hg. Common carotid artery peak systolic velocity: 234 cm/sec. Internal carotid artery peak systolic velocity: 97 cm/sec. Internal carotid artery end diastolic velocity: 19 cm/sec. External carotid artery peak systolic velocity: 159 cm/sec. ICA/CCA peak systolic ratio: 0.4 . Ramirez scale imaging description: Mild scattered plaque. Tortuous proximal CCA. 2 right neck lymph nodes, largest measuring 8 mm. Percent internal carotid artery stenosis: Less than 50% Vertebral artery: Flow direction is antegrade. Left side: Brachial blood pressure: 146/66 mm Hg. Common carotid artery peak systolic velocity: 131 cm/sec. Internal carotid artery peak systolic velocity: 196 cm/sec. Internal carotid artery end diastolic velocity: 50 cm/sec. External carotid artery peak systolic velocity: 189 cm/sec. ICA/CCA peak systolic ratio: 1.5 . Ramirez scale imaging description: Moderate scattered plaque left neck lymph node measuring 8 mm. Percent internal carotid artery stenosis: 50-69% stenosis . Vertebral artery: Flow direction is antegrade. IMPRESSION: 1. 50-69% left internal carotid artery stenosis. 2. Stable less than 50% right internal carotid artery stenosis. 3. Elevated flow again seen within the left common carotid artery likely related to tortuosity. Dictated by: Micah MONROY Interpreted: Rancho Dawson MD on 07/23/2023 at 13:07 Approved by: Rancho Dawson M.D. on 07/23/2023 at 16:45
== END ==
PROVIDERS: PCP Family Medicine; Referring Provider Family Medicine; Visit Provider Family Medicine
DX: I65.23 Occlusion and stenosis of bilateral carotid arteries (principal); I10 Essential (primary) hypertension
CPT/HCPCS: 93880

== ENCOUNTER → 2023-10-27 11:37 | Outpatient (CLI) | payer MEDICARE, OTHER, SELFPAY ==
[2022-12-16 16:23] VITALS: BMI 40.6
--- NOTE | 2023-10-27 | DI.NM.S_ITS ---
PROCEDURE: NM JAYLEEN PERF SPECT R&S PHARM Rest and pharmacological stress myocardial perfusion SPECT with gated imaging and ejection fraction RADIOPHARMACEUTICAL: 25.7 mCi Tc-99m tetrafosmin IV at rest and 26.4 mCi Tc-99m tetrafosmin IV at peak effect of pharmacological stress. Ele-odg-kngcehrt was performed. INDICATIONS: POSTURAL DIZZINESS W/PRESYNCOPE TECHNIQUE: Radiopharmaceutical was injected at peak stress test, and also at rest. SPECT images were obtained. SPECT myocardial perfusion images were displayed in short axis, horizontal long axis, and vertical long axis views. Gated images were reviewed using [employer] software. COMPARISON: None. CARDIAC STRESS: A pharmacologic stress test was performed under the supervision of an attending staff, using an infusion of regadenoson 0.4 mg IV. Hemodynamic data: There is normal blood pressure and heart rate response to pharmacologic stress. Symptoms: The patient denied anginal chest pain. EKG: No diagnostic changes of ischemia; no ectopy. FINDINGS: Raw data: There is good myocardial uptake of radiotracer. No significant motion artifacts. The patient was unable to raise the left arm above the head. Moae-jr-fcpba ratio is 0.39 (normal is less than 0.38 for tetrafosmin tracer). Left ventricle function: Gated images demonstrate normal left ventricular wall thickening. No segmental wall motion abnormalities. No transient ischemic dilation; TID is 2.18 (normal less than 1.3). Left ventricle resting end diastolic volume is 43 mL. Left ventricle stress ejection fraction is >75%; normal range is above 45%. Myocardial perfusion: There is a small size, mild intensity reversible apical lateral wall defect. No fixed perfusion defects. IMPRESSION: Image quality diminished due to patient's inability to keep left arm above the head. Intermediate risk study. The small size, mild intensity reversible apical lateral wall defect may very well be due to the left arm at the side and slightly more anterior on the stress image compared to the resting image. A small area of distal lateral ischemia cannot be ruled out. Abnormal TID may suggest balanced ischemia however. Small LV cavity size with hyperdynamic function. Dictated by: Leticia Dunlap D.O. on 10/29/2023 at 16:26 Approved by: Leticia Dunlap D.O. on 10/29/2023 at 16:34
== END ==
PROVIDERS: PCP Family Medicine; Referring Provider Family Medicine; Visit Provider Family Medicine
DX: R42 Dizziness and giddiness (principal); R55 Syncope and collapse
CPT/HCPCS: 78452; 93017; A9502; J2785

== ENCOUNTER → 2023-11-26 12:05 | Outpatient (CLI) | payer MEDICARE, OTHER, SELFPAY ==
[2022-12-16 16:23] VITALS: BMI 40.6
--- NOTE | 2023-11-26 12:08 | DI.MRI.S_ITS ---
PROCEDURE: MR THORACIC SPINE WO CON INDICATIONS: CERVICAL,THORACIS AND LUMBAR PAIN TECHNIQUE: Noncontrast sagittal T1 spine echo and T2 fast spin echo, sagittal STIR, and T2 fast spin echo through the thoracic spine. COMPARISON: [facility], CT, CT CHEST W CON, 11/13/2022, 13:36. [facility], MR, MR LUMBAR SPINE WO CON, 11/26/2023, 12:27. [facility], MR, MR CERVICAL SPINE WO CON, 11/26/2023, 12:27. FINDINGS: Image quality: Excellent. Alignment and Curvature: Accentuated thoracic kyphosis is seen. Minimal anterolisthesis can be seen at T1-T2 and T2-T3. There is mild retrolisthesis seen at T12-L1. Bone Marrow: Marrow is of normal overall signal. Scattered foci are seen, which are hyperintense on T1-weighted and T2-weighted imaging, which are most consistent with benign vertebral body hemangiomas. No acute vertebral body compression fractures. Spinal Cord: Visualized spinal cord is normal in size and signal. Paraspinous Soft Tissues: No paravertebral masses. Miscellaneous: Generalized degenerative changes are seen, scattered levels of [id number] disc space narrowing. Associated endplate irregularity can be seen. Several levels of bridging endplate osteophytes can be seen. Several levels of mild neural foraminal narrowing can be seen within the lower thoracic spine. No significant central canal narrowing is seen. IMPRESSION: Generalized degenerative changes are seen, which are considered to be age-appropriate. Dictated by: Tan Junior M.D. on 11/26/2023 at 13:04 Approved by: Tan Junior M.D. on 11/26/2023 at 13:09
--- NOTE | 2023-11-26 12:08 | DI.MRI.S_ITS ---
PROCEDURE: MR LUMBAR SPINE WO CON INDICATIONS: CERVICAL,THORACIS AND LUMBAR PAIN TECHNIQUE: Noncontrast sagittal T1 spin echo and T2 fast echo, sagittal STIR, and T2 fast spin echo through the lumbar spine. In cases with scoliosis, additional coronal T2 fast spin echo may be performed. COMPARISON: [facility], MR, MR LUMBAR SPINE WO CON, 02/10/2022, 10:16. [facility], CT, CT KIDNEY URETER BLADDER (KUB), 04/03/2021, 14:35. [facility], MR, MR LUMBAR SPINE WO CON, 02/17/2019, 13:26. [facility], MR, MR THORACIC SPINE WO CON, 11/26/2023, 12:27. [facility], MR, MR CERVICAL SPINE WO CON, 11/26/2023, 12:27. [facility], MR, MR LUMBAR SPINE WO CON, 02/18/2023, 11:29. FINDINGS: Image quality: This examination is limited by involuntary motion artifact. Alignment and Curvature: There is accentuated lumbar lordosis. There is minimal retrolisthesis at T12-L1 and L1-L2, with mild retrolisthesis at L2-L3. Grade 1 anterolisthesis can be seen at L5-S1, without associated pars defects. Mild dextroconvex scoliotic curvature is seen. Bone Marrow: Marrow is of normal overall signal. Scattered foci are seen, which are hyperintense on T1-weighted and T2-weighted imaging, which are most consistent with benign vertebral body hemangiomas. No acute vertebral body compression fractures. Spinal Cord: Conus medullaris terminates at the L1 level. Visualized cord demonstrates normal signal and size. Paraspinous Soft Tissues: No paravertebral masses. Water signal bilateral renal cysts are seen. T12-L1: At least moderate loss of disc height and disc signal can be seen. Reactive marrow endplate changes are seen, which are hyperintense on T1-weighted and T2-weighted imaging and most consistent with fatty metaplasia (Modic type II changes). Moderate generalized disc bulge is seen. Mild to moderate facet hypertrophy is seen. There is moderate left-sided and minimal right-sided neural foraminal narrowing. Mild central canal narrowing is seen. No significant change from the prior. L1-L2: The disc height is well-preserved. Loss of disc signal is seen at this level. Mild generalized disc bulge is seen. Moderate facet joint hypertrophy is seen. Associated hypertrophy of the ligamentum flavum can be seen. There is mild left-sided and no right-sided neural foraminal narrowing. Mild central canal narrowing is seen. When comparison is made with the prior images, these findings are similar. L2-L3: Mild loss of disc height is seen. Loss of disc signal is seen. Moderate disc bulge is seen, which is eccentric to the left. There is a mild central disc osteophyte protrusion. At least moderate facet hypertrophy is seen. Associated hypertrophy of the ligamentum flavum can be seen. Moderate bilateral neural foraminal narrowing is seen. Moderate central canal narrowing is seen. When comparison is made with the prior images, these findings are similar. L3-L4: The disc height is well-preserved. Loss of disc signal is seen at this level. Moderate generalized disc bulge is seen. There is a superimposed central disc protrusion. Moderate to prominent facet hypertrophy is seen. Moderate to severe bilateral neural foraminal narrowing can be seen, right worse than left. There is a degree of compression seen upon the exiting nerve roots. There is severe central canal narrowing. No significant change from the prior. L4-L5: Postoperative changes are seen at this level, with bilateral pedicle screws and vertical fixation rods. There is a disc spacer seen at this level. There has been removal of portions of the posterior elements. Mild to moderate disc bulge is seen. Mild bilateral neural foraminal narrowing is seen. No central canal narrowing is seen. When comparison is made with the prior images, these findings are similar. L5-S1: The disc height is well-preserved. Loss of disc signal is seen at this level. Moderate generalized disc bulge is seen. There is a superimposed central disc protrusion. There is a focal annular fissure seen posteriorly. At least moderate facet hypertrophy is seen. Mild to moderate bilateral neural foraminal narrowing is seen. Moderate central canal narrowing is seen. When comparison is made with the prior images, these findings are similar. IMPRESSION: Multiple levels of significant lumbar spine degenerative change can be seen. These degenerative changes are similar to the prior. Prior postoperative change at L4-L5. Dictated by: Tan Junior M.D. on 11/26/2023 at 12:57 Approved by: Tan Junior M.D. on 11/26/2023 at 13:04
--- NOTE | 2023-11-26 12:08 | DI.MRI.S_ITS ---
PROCEDURE: MR CERVICAL SPINE WO CON INDICATIONS: CERVICAL,THORACIS AND LUMBAR PAIN TECHNIQUE: Noncontrast sagittal T1 spin echo and T2 fast spin echo, sagittal STIR, foraminal oblique sagittal T2 fast spin echo, and axial gradient echo or T2 fast spin echo through the cervical spine. COMPARISON: [facility], MR, MR CERVICAL SPINE WO CON, 09/28/2020, 10:17. [facility], MR, MR THORACIC SPINE WO CON, 11/26/2023, 12:27. [facility], MR, MR LUMBAR SPINE WO CON, 11/26/2023, 12:27. [facility], MR, MR CERVICAL SPINE WO CON, 01/22/2022, 9:39. FINDINGS: Image quality: This examination is significantly limited by involuntary motion artifact. Alignment and Curvature: There is mild retrolisthesis at C3-C4. Minimal anterolisthesis is seen at C6-C7 and C7-T1. Bone Marrow: Marrow demonstrates normal overall signal. Spinal Cord: Visualized spinal cord has normal size and signal. No cerebellar tonsillar herniation. Paraspinous Soft Tissues: No paravertebral masses. Prevertebral soft tissues are normal in thickness. There has been removal of portions of the posterior elements. C2-C3: Moderate to severe loss of disc height and disc signal can be seen. A mild degree of generalized disc osteophyte complex is seen. Mild facet joint hypertrophy is seen. No significant neural foraminal narrowing can be seen. Moderate central canal narrowing is seen. When comparison is made with the prior images, these findings are similar. C3-C4: Moderate to severe loss of disc height and disc signal can be seen. At least moderate disc osteophyte complex is seen. Prominent facet hypertrophy is seen. Moderate to severe bilateral neural foraminal narrowing can be seen, left worse than right. Mild central canal narrowing is seen. C4-C5: Moderate to severe loss of disc height and disc signal can be seen. Moderate generalized disc osteophyte complex is seen. Prominent facet hypertrophy is seen. Moderate to severe bilateral neural foraminal narrowing is seen. Mild to moderate central canal narrowing is seen. No significant change from the prior. C5-C6: Moderate to severe loss of disc height and disc signal can be seen. Moderate generalized disc osteophyte complex is seen. At least moderate facet hypertrophy is seen. Moderate to severe bilateral neural foraminal narrowing can be seen. The central canal is widely patent. No significant change from the prior. C6-C7: At least moderate loss of disc height and disc signal can be seen. Moderate generalized disc osteophyte complex is seen. There is a mild central disc osteophyte protrusion. Moderate facet joint hypertrophy is seen. There is moderate to severe bilateral neural foraminal narrowing. No central canal narrowing is seen. Stable from the prior study. C7-T1: Mild to moderate loss of disc height is seen. Loss of disc signal is seen. Mild to moderate disc osteophyte complex is seen. There is at least moderate facet hypertrophy. Mild bilateral neural foraminal narrowing is seen. No central canal narrowing is seen. When comparison is made with the prior images, these findings are similar. IMPRESSION: Multiple levels of significant cervical spine degenerative change can be seen, which are similar to 202. There has been prior removal of portions of the posterior elements. Motion limited study. Dictated by: Tan Junior M.D. on 11/26/2023 at 14:20 Approved by: Tan Junior M.D. on 11/26/2023 at 14:26
== END ==
LOC: MRI 12:06
PROVIDERS: PCP Family Medicine; Referring Provider Family Medicine; Visit Provider Family Medicine
DX: M48.061 Spinal stenosis, lumbar region without neurogenic claudication (principal); M47.817 Spondylosis without myelopathy or radiculopathy, lumbosacral region; M47.816 Spondylosis without myelopathy or radiculopathy, lumbar region; M47.814 Spondylosis without myelopathy or radiculopathy, thoracic region; M47.812 Spondylosis without myelopathy or radiculopathy, cervical region; M62.838 Other muscle spasm; M54.2 Cervicalgia; R26.81 Unsteadiness on feet; M46.1 Sacroiliitis, not elsewhere classified; Z98.1 Arthrodesis status
CPT/HCPCS: 72141; 72146; 72148